=== PATIENT | male | born 1945 | race Caucasian/White ===

== ENCOUNTER 2016-08-26 18:22 | Emergency (ER) | payer MEDICARE, OTHER ==
[~2016-08-26] VITALS: Wt 91.0 kg
[2016-08-26] MEDS ORDERED: SOD CHLORIDE 0.9% 1,000 ML IV STA (18:42)
[2016-08-26] MEDS ORDERED: ONDANSETRON 4 MG INJ IV STA (18:42)
[2016-08-26 18:54] LABS: ADD UMIC YES; URINE BILIRUBIN (Dip) 1+ (NEGATIVE); URINE BLOOD (Dip) 1+ (NEGATIVE); URINE COLOR YELLOW (YELLOW); URINE GLUCOSE (Dip) NEGATIVE (NEGATIVE); URINE KETONES (Dip) NEGATIVE (NEGATIVE); URINE LEUKOCYTE ESTERASE (Dip) NEGATIVE (NEGATIVE); URINE NITRITE (Dip) NEGATIVE (NEGATIVE); URINE TOTAL PROTEIN (Dip) NEGATIVE (NEGATIVE); URINE UROBILINOGEN (Dip) 1.0 E.U./dL (0.1-1.0)
[2016-08-26] MEDS ORDERED: PARO20TA58 PO (19:04)
[2016-08-26] MEDS ORDERED: ROSU20TA PO (19:04)
[2016-08-26] MEDS ORDERED: ASPI-664 PO (19:04)
[2016-08-26] MEDS ORDERED: CLOP75TA27 PO (19:05)
[2016-08-26] MEDS ORDERED: CARV3.1260 PO (19:05)
[2016-08-26] MEDS ORDERED: FURO40TA4 PO (19:05)
[2016-08-26] MEDS ORDERED: MELO-110 PO (19:05)
[2016-08-26] MEDS ORDERED: METF-382 PO (19:06)
[2016-08-26] MEDS ORDERED: TAMS-14 PO (19:06)
[2016-08-26] MEDS ORDERED: ALBU18HF INHALATION (19:06)
[2016-08-26] MEDS ORDERED: ERGO500014 PO (19:07)
[2016-08-26] MEDS ORDERED: POTA8CAP PO (19:07)
[2016-08-26 19:19] LABS: BASOPHILS % 0.2 % (0.0-2.0); EOSINOPHILS # 0.2 10^3/ul (0.0-0.5); EOSINOPHILS % 1.6 % (0.0-7.0); HEMATOCRIT 47.1 % (42.0-52.0); HEMOGLOBIN 15.9 g/dl (14.0-18.0); LYMPHOCYTES # 1.8 10^3/ul (0.8-2.9); LYMPHOCYTES % 15.1 % (15.0-51.0); MEAN CORPUSCULAR HEMOGLOBIN 30.6 pg (29.0-33.0); MEAN CORPUSCULAR HGB CONC 33.8 g/dl (32.0-37.0); MEAN CORPUSCULAR VOLUME 90.5 fl (82.0-101.0); MEAN PLATELET VOLUME 10.1 fl (7.4-10.4); MONOCYTE # 1.4 10^3/ul (0.3-0.9); MONOCYTES % 11.4 % (0.0-11.0); NEUTROPHIL # 8.7 10^3/ul (1.6-7.5); NEUTROPHILS % 71.7 % (39.0-77.0); PLATELET COUNT 199 10^3/UL (140-440); RED BLOOD COUNT 5.21 10^6/ul (4.70-6.10); RED CELL DISTRIBUTION WIDTH 14.5 % (11.5-14.5); UNCORRECTED WBC 12.2 10^3/ul (4.8-10.8); WHITE BLOOD COUNT 12.2 10^3/ul (4.8-10.8)
[2016-08-26 19:26] LABS: CONDITION 1; LH ANALYZER COMMENTS 1
[2016-08-26 19:36] LABS: BACTERIA,URINE FEW; MUCUS,URINE MANY
[2016-08-26 19:37] LABS: ICTOTEST NEGATIVE (NEGATIVE); TRANSITIONAL EPI CELLS,URINE FEW
[2016-08-26 20:04] LABS: ALBUMIN 3.5 g/dl (3.3-4.9); CHLORIDE 102 mmol/L (97-110)
[2016-08-26 20:05] LABS: POTASSIUM 4.2 mmol/L (3.5-5.1); SODIUM 143 mmol/L (135-144)
[2016-08-26 20:06] LABS: INR 1.07; PROTIME 13.9 Sec (12.2-14.2); PT RATIO 1.1
[2016-08-26 20:07] LABS: ANION GAP 16 (8-16); BILIRUBIN,INDIRECT 0.3 mg/dl (0-1.1); BILIRUBIN,TOTAL 0.3 mg/dl (0.2-1.3); CARBON DIOXIDE 29 mmol/L (21-31); CREATININE 0.95 mg/dl (0.61-1.24); PARTIAL THROMBOPLASTIN TIME 31.4 Sec (25.0-35.0)
[2016-08-26 20:08] LABS: ALANINE AMINOTRANSFERASE 34 IU/L (13-69); ALBUMIN/GLOBULIN RATIO 1.16; ALKALINE PHOSPHATASE 295 IU/L (42-121); ASPARTATE AMINO TRANSFERASE 37 IU/L (15-46); BLOOD UREA NITROGEN 21 mg/dl (7-20); CALCIUM 8.7 mg/dl (8.4-10.2); GLUCOSE 94 mg/dl (70-220); TOTAL PROTEIN 6.5 g/dl (6.1-8.1)
[2016-08-26] MEDS ORDERED: SOD CHLORIDE 0.9% 100 ML ONE (20:22)
[2016-08-26] MEDS ORDERED: IOHEXOL 300MG/ML 150 ML BTL ONE (20:22)
[2016-08-26 20:28] LABS: TROPONIN-I < 0.012 ng/ml (0.00-0.12)
--- NOTE | 2016-08-26 20:53 | RADRPT ---
PROCEDURE: CT Abdomen and Pelvis with contrast. CLINICAL INDICATION: Abdominal pain, nausea, and vomiting. TECHNIQUE: A CT scan of the abdomen and pelvis was performed with intravenous contrast. The patie nt was scanned following the uncomplicated intravenous administration of 100 cc of Omnipaque-300. C oronal and sagittal reformatted images were obtained from the axial source images. Images were revie wed on a high-resolution PACS workstation. CTDIvol: 18.46 mGy. DLP: 1086.98 mGy-cm. COMPARISON: None. FINDINGS: The lung bases are clear. There are numerous hypodense hepatic lesions measuring up to 3.7 cm in the left hepatic lobe, strong ly suspicious for metastatic disease. There is a stone in the gallbladder. The common bile duct is not dilated. The spleen is not enlarged. No pancreatic lesion is identified and there is no pancreat ic ductal dilatation. There is a 4.7 x 3.5 cm nodule in the right adrenal gland (25 HU), nonspecific . The left adrenal gland is unremarkable. The kidneys are normal in size. There is no perinephric fat stranding. No hydronephrosis is seen. The small and large bowel are normal in caliber. There is no bowel wall thickening.There is mild to moderate descending and sigmoid colon diverticulosis. The appendix is normal. The urinary bladder is unremarkable. The prostate gland is enlarged. There is a moderate fat contai antoientte left inguinal hernia. No lymphadenopathy is identified. There is no ascites. No pneumoperitoneum is seen. There are mild t o moderate arterial calcifications. There is an infrarenal abdominal aortic aneurysm (3.1 cm). No suspicious osseous lesion is idenitified. There are mild to moderate degenerative changes along t he lower spine. IMPRESSION: 1. Numerous hypodense hepatic lesions measuring up to 3.7 cm in the left hepatic lobe, strongly price spicious for metastatic disease. 2. Nonspecific 4.7 cm right adrenal nodule. Differential considerations include metastatic disease and an adrenal adenoma. This could be further evaluated with adrenal protocol CT or MRI, as clinical ly warranted. 3. Cholelithiasis. 4. Normal appendix. 5. Mild to moderate descending and sigmoid colon diverticulosis. 6. Enlarged prostate gland. Correlation with PSA level is recommended. 7. Moderate fat-containing left inguinal hernia. 8. Mild to moderate atherosclerotic arterial calcifications. 9. Infrarenal abdominal aortic aneurysm (3.1 cm). RPTAT: HTAR .Pio Fagan MD, MD Date Time Electronically viewed and signed by .Pio Fagan MD, MD on 08/26/2016 20:53 .R/
[2016-08-26 21:24] VITALS: BP 136/95; PULSE 77; RESP 16; TEMP 98.6
--- NOTE | 2016-08-26 21:24 | ERD ---
ER Documentation Chief Complaint Date/Time DATE: 08/26/16 TIME: 21:19 Chief Complaint ABDOMINAL PAIN CENTRAL FOR A FEW MONTHS. NAUSEA AND VOMITING HPI 71-year-old man presents with epigastric abdominal pain, referred here by PMD for elevated alkaline phosphatase level. He states he has had a 20 pound weight loss over the last 2 months and intermittent nausea with a couple episodes of clear nonbloody nonbilious emesis. He has had no blood per rectum or melena, no fevers or chills, no chest pain or shortness of breath. ROS All systems reviewed and are negative except as per history of present illness. Medications Home Meds Active Scripts Ibuprofen* (Motrin*) 400 Mg Tab, 400 MG PO Q8 Y for PAIN AND/OR INFLAMMATION, # 30 TAB Prov:GEOVANNA AMOS MD 08/26/16 Reported Medications Ergocalciferol* (Drisdol* (Vitamin D2)) 50,000 Unit Capsule, 11718 UNIT PO Q7D, CAP 08/26/16 Potassium Chloride* (Potassium Chloride*) 8 Meq Capsule.er, 8 MEQ PO DAILY, CAP 08/26/16 Albuterol Sulfate* (Ventolin HFA*) 18 Gm Hfa.aer.ad, 2 PUFF INHALATION Q6H Y for WHEEZING AND SOB, #1 INHALER 08/26/16 Tamsulosin Hcl* (Flomax*) 0.4 Mg Cap.er.24h, 0.4 MG PO DAILY, CAP 08/26/16 Metformin Hcl* (Metformin Hcl*) 500 Mg Tablet, 500 MG PO WITH BREAKFAST, #30 TAB 08/26/16 Furosemide* (Furosemide*) 40 Mg Tablet, 40 MG PO DAILY, TAB 08/26/16 Carvedilol* (Carvedilol*) 3.125 Mg Tablet, 3.125 MG PO BID, #60 TAB 08/26/16 Meloxicam* (Mobic*) 15 Mg Tablet, 15 MG PO DAILY, #30 TAB 08/26/16 Clopidogrel Bisulfate (Clopidogrel) 75 Mg Tablet, 75 MG PO DAILY, #30 TAB 08/26/16 Paroxetine Hcl* (Paxil*) 20 Mg Tablet, 20 MG PO DAILY, TAB 08/26/16 Rosuvastatin Calcium* (Crestor*) 20 Mg Tablet, 20 MG PO QHS, #30 TAB 08/26/16 Aspirin (Low Dose Aspirin) 81 Mg Tablet., 81 MG PO DAILY, #30 TAB 08/26/16 Allergies Allergies: Coded Allergies: No Known Drug Allergy (Verified Allergy, Mild, 08/26/16) PMhx/Soc Hypertension, coronary artery disease status post PCI with 2 stents placed History of Surgery: Yes (STENT PLACEMENT 2X 7 YRS & 2 YRS AGO) Anesthesia Reaction: No Hx Neurological Disorder: No Hx Respiratory Disorders: No Hx Cardiac Disorders: No Hx Psychiatric Problems: No Hx Miscellaneous Medical Probl: No Hx Alcohol Use: No Hx Substance Use: No Hx Tobacco Use: Yes (1/2 PACK A DAY) Smoking Status: Former smoker FmHx Family History: No diabetes Physical Exam Vitals Vital Signs Date Time Temp Pulse Resp B/P Pulse Ox O2 Delivery O2 Flow Rate FiO2 08/26/16 21:24 98.6 77 16 136/95 100 Room Air 08/26/16 18:24 97.9 72 20 129/70 98 Physical Exam GENERAL: Well-developed, well-nourished, well-hydrated, in no apparent distress , looks nontoxic in appearance HEENT: Moist mucous membranes, pink conjunctiva, no cervical spine tenderness or step-off deformities, no goiter, no jaundice or icterus, extraocular movements intact without pain. No submandibular induration, and no pharyngeal erythema NEURO: Alert and oriented 3, cranial nerves II through XII intact bilaterally, pupils equal round reactive to light, no focal deficits or facial asymmetry, sensation intact distally Strength 5/5 in upper and lower extremities bilaterally CARDIAC: Regular rate and rhythm, no murmurs rubs or gallops LUNGS: Clear bilaterally no wheezing crackles or stridor ABDOMEN: Soft nontender, no guarding, no rigidity, no rebound, no psoas sign no obturator sign. Normoactive bowel sounds SKIN: Warm and dry to touch, no abrasions, contusions, or hematomas, no lacerations, no ecchymosis, no target lesions, and without ulcers EXTREMITIES: No clubbing cyanosis or edema, calves are bilaterally symmetrical, no Homans sign, no popliteal cord sign. Distal pulses equal and bilateral PSYCH: Normal affect without agitation or irritability Result Diagram: 08/26/16 1900 08/26/161944 Results 24 hrs Laboratory Tests Test 08/26/16 18:45 08/26/16 19:00 08/26/16 19:45 Urine Bacteria FEW Urine Bilirubin 1+ Urine Clarity SLIGHTLY CLOUDY Urine Color YELLOW Urine Glucose NEGATIVE% Urine Hemoglobin 1+ Urine Ictotest NEGATIVE Urine Ketones NEGATIVE Urine Leukocyte Esterase NEGATIVE Urine Microscopic RBC 5-10/HPF Urine Microscopic WBC 0-2/HPF Urine Mucus MANY Urine Nitrite NEGATIVE Urine Specific [place] 1.025 Urine Total Protein NEGATIVE Urine Transitional Epithelial Cells FEW Urine Urobilinogen 1.0 E.U./dL Urine pH 6.0 Basophils # 0.010^3/ul Basophils % 0.2% Blood Morphology Comment Eosinophils # 0.210^3/ul Eosinophils % 1.6% Hematocrit 47.1% Hemoglobin 15.9g/dl Lymphocytes # 1.810^3/ul Lymphocytes % 15.1% Mean Corpuscular Hemoglobin 30.6pg Mean Corpuscular Hemoglobin Concent 33.8g/dl Mean Corpuscular Volume 90.5fl Mean Platelet Volume 10.1fl Monocytes # 1.410^3/ul Monocytes % 11.4% Neutrophils # 8.710^3/ul Neutrophils % 71.7% Nucleated Red Blood Cells # 0.010^3/ul Nucleated Red Blood Cells % 0.0/100WBC Platelet Count 27613^3/UL Red Blood Count 5.2110^6/ul Red Cell Distribution Width 14.5% White Blood Count 12.210^3/ul Activated Partial Thromboplast Time 31.4Sec Alanine Aminotransferase (ALT/SGPT) 34IU/L Albumin 3.5g/dl Albumin/Globulin Ratio 1.16 Alkaline Phosphatase 295IU/L Anion Gap 16 Aspartate Amino Transf (AST/SGOT) 37IU/L Blood Urea Nitrogen 21mg/dl Calcium Level 8.7mg/dl Carbon Dioxide Level 29mmol/L Chloride Level 102mmol/L Creatinine 0.95mg/dl Direct Bilirubin 0.00mg/dl Globulin 3.00g/dl Glucose Level 94mg/dl INR International Normalized Ratio 1.07 Indirect Bilirubin 0.3mg/dl Lipase 31U/L Potassium Level 4.2mmol/L Prothrombin Time 13.9Sec Prothrombin Time Ratio 1.1 Sodium Level 143mmol/L Total Bilirubin 0.3mg/dl Total Protein 6.5g/dl Troponin I < 0.012ng/ml Current Medications Medications (Trade) Dose Ordered Sig/Jose M Route PRN Reason Start Time Stop Time Status Last Admin Dose Admin Sodium Chloride (NS) 1,000 ml @ 1,000 mls/hr Q1H STAT IV 08/26/16 18:42 08/26/16 19:41 DC 08/26/16 19:31 Ondansetron HCl (Zofran Inj) 4 mg ONCE STAT IV 08/26/16 18:42 08/26/16 18:44 DC 08/26/16 19:30 IV Flush 10 ml 10 ml STK-MED ONCE .ROUTE 08/26/16 20:22 08/26/16 20:23 DC 08/26/16 20:31 Sodium Chloride (NS) 100 ml @ ud STK-MED ONCE .ROUTE 08/26/16 20:22 08/26/16 20:23 DC 08/26/16 20:31 Iohexol (Omnipaque 300mg/ ml) 150 ml STK-MED ONCE .ROUTE 08/26/16 20:22 08/26/16 20:23 DC 08/26/16 20:31 Procedures/MDM IV line was established patient was placed on inbound sales advisor rhythm strip revealed a sinus rhythm at about 80 bpm with upright P and T waves. Patient was afebrile. I administered 1 L normal saline intravenously and Zofran 4 mg IV with good response. EKG performed, read by me revealed a normal sinus rhythm at 78 bpm, left axis deviation, narrow QRS complex, no concerning ST elevations or depressions noted. CBC was unremarkable, electrolytes revealed dehydration with a BUN/creatinine of 21/1, liver function tests were generally normal although alkaline phosphatase was elevated just below 300. Lipase was normal. Troponin was negative. Urine analysis was unremarkable. CT scan of the abdomen and pelvis with IV contrast was performed there is numerous hypodense hepatic lesions mainly in the left hepatic lobe concerning for metastatic disease, there was cholelithiasis noted with out common bile duct dilatation and there is a right adrenal mass. Enlarged prostate. Please refer to radiologist dictation for full report. I spoke to his primary care physician Dr. Simons who spoke to the patient at length over the phone regarding his symptoms and CT scan findings. We both recommended and urged the patient to stay for inpatient management although he refused. His primary care physician then requested the report of the CT scan and images on disc and stated he would follow-up with him as an outpatient early next week and refer him to GI and urology for further workup for possible colon cancer versus prostate cancer. Differential diagnoses considered, included but not limited to acute coronary syndrome, colon carcinoma versus prostate carcinoma, pulmonary embolism, aortic dissection, abdominal aortic aneurysm, sepsis, stroke, meningitis, encephalitis , pneumonia, appendicitis, cholecystitis, bowel obstruction, pyelonephritis, nephrolithiasis, cystitis, as well as metabolic, hematologic, and electrolyte abnormalities. As well as abscess, cellulitis, fractures, and dislocations. Patient feels much better at this time, and vital signs are normal, symptoms have improved. I did give strict instructions to return to the ED if symptoms continue or worsen, patient will otherwise follow-up with primary care physician. Patient understood instructions and agreed to plan. Departure Diagnosis: Primary Impression: Abdominal pain Abdominal location: epigastric Qualified Code: R10.13 - Epigastric pain Additional Impressions: Cholelithiasis Cholelithiasis location: gallbladder Cholecystitis presence: without cholecystitis Biliary obstruction: without biliary obstruction Qualified Code : K80.20 - Calculus of gallbladder without cholecystitis without obstruction Weight loss BPH (benign prostatic hyperplasia) Prostatic enlargement morphology: unspecified morphology Lower urinary tract symptom presence: symptoms present Qualified Code: N40.1 - Benign prostatic hyperplasia with lower urinary tract symptoms, unspecified morphology Condition: Stable GEOVANNA AMOS MD Aug 26, 2016 21:24
[2016-08-26] MEDS ORDERED: IBUP400T22 PO (21:25)
== END 2016-08-26 21:48 | disposition home or self-care (01) ==
LOC: E/R 18:22
DX: R10.13 Epigastric pain (principal); K80.20 Calculus of gallbladder without cholecystitis without obstruction; R63.4 Abnormal weight loss; N40.1 Benign prostatic hyperplasia with lower urinary tract symptoms; R11.2 Nausea with vomiting, unspecified; I10 Essential (primary) hypertension; I25.10 Atherosclerotic heart disease of native coronary artery without angina pectoris; Z87.891 Personal history of nicotine dependence; Z95.5 Presence of coronary angioplasty implant and graft; Z79.84 Long term (current) use of oral hypoglycemic drugs; Z79.82 Long term (current) use of aspirin
CPT/HCPCS: 36415; 74177; 80053; 81001; 83690; 84484; 85025; 85610; 85730; 93005; 96374; 99285; J2405; J7030; Q9967; 81003

== ENCOUNTER 2016-10-20 10:59 | Inpatient (IN) | payer MEDICARE, OTHER ==
[~2016-10-20] VITALS: Ht 185.4 cm; Wt 78.5 kg
[~2016-10-20 10:59] MED LIST: ALBU18HF INHALATION; ASPI-664 PO; CARV3.1260 PO; CLOP75TA27 PO; ERGO500014 PO; FURO40TA4 PO; IBUP400T22 PO; MELO-110 PO; METF-382 PO; PARO20TA58 PO; POTA8CAP PO; ROSU20TA PO; TAMS-14 PO
[2016-10-20] MEDS ORDERED: ONDANSETRON 4 MG INJ IV STA (11:14)
[2016-10-20] MEDS ORDERED: SOD CHLORIDE 0.9% 1,000 ML IV STA ×3 (11:14→17:51)
[2016-10-20] MEDS ORDERED: FAMOTIDINE 20 MG INJ IV STA (11:14)
[2016-10-20] MEDS ORDERED: PANTOPRAZOLE 40 MG INJ IV ONE (11:30)
[2016-10-20 11:41] LABS: ADD SCAN DIFF NO
[2016-10-20 11:47] LABS: ABNORMAL IP MESSAGE 1; HEMATOCRIT 33.5 % (42.0-52.0); HEMOGLOBIN 11.6 g/dl (14.0-18.0); MEAN CORPUSCULAR HEMOGLOBIN 31.1 pg (29.0-33.0); MEAN CORPUSCULAR HGB CONC 34.6 g/dl (32.0-37.0); MEAN CORPUSCULAR VOLUME 89.8 fl (82.0-101.0); MEAN PLATELET VOLUME 10.7 fl (7.4-10.4); PLATELET COUNT 212 10^3/UL (140-415); RED BLOOD COUNT 3.73 10^6/ul (4.70-6.10)
[2016-10-20 11:54] LABS: ALBUMIN 3.2 g/dl (3.3-4.9)
[2016-10-20 11:55] LABS: POTASSIUM 5.2 mmol/L (3.5-5.1)
[2016-10-20 11:57] LABS: BILIRUBIN,INDIRECT 0.8 mg/dl (0-1.1); BILIRUBIN,TOTAL 0.8 mg/dl (0.2-1.3); CREATININE 0.88 mg/dl (0.61-1.24); TOTAL PROTEIN 5.9 g/dl (6.1-8.1)
[2016-10-20 11:58] LABS: ALBUMIN/GLOBULIN RATIO 1.18; CALCIUM 8.4 mg/dl (8.4-10.2)
[2016-10-20 12:29] LABS: LYMPHOCYTES # 1.7 10^3/ul (0.8-2.9); MONOCYTE # 0.4 10^3/ul (0.3-0.9); NEUTROPHIL # 38.7 10^3/ul (1.6-7.5)
[2016-10-20 12:31] LABS: POLYCHROMASIA FEW
[2016-10-20] MEDS ORDERED: METOCLOPRAMIDE 10 MG INJ IV ONE (13:00)
[2016-10-20] MEDS ORDERED: LORAZEPAM 2 MG INJ IV ONE (13:00)
[2016-10-20] MEDS ORDERED: CAPE500T11 PO ×2 (13:12)
[2016-10-20] MEDS ORDERED: CEFEPIME 2GM/50 ML (PMX) 50 ML IVPB STA (13:17)
[2016-10-20] MEDS ORDERED: PANTOPRAZOLE IV 80 MG in SOD CHLORIDE 0.9% 100 ML IV STA (13:18)
[2016-10-20] MEDS ORDERED: LIDOCAINE 2% VISC 15 ML CUP PO ONE (13:30)
[2016-10-20] MEDS ORDERED: ONDANSETRON 4 MG INJ IV PRN ×2 (13:30→16:00)
[2016-10-20] MEDS ORDERED: ACETAMINOPHEN 325 MG TAB PO PRN ×2 (13:30→16:00)
[2016-10-20] MEDS ORDERED: VANCOMYCIN 1 GM (PMX) 250 ML IVPB ONE (13:30)
--- NOTE | 2016-10-20 13:46 | ERA ---
ER Documentation Chief Complaint Date/Time DATE: 10/20/16 TIME: 13:44 Chief Complaint BROUGHT IN VIA EMS FROM HOME DUE TO VOMITING BLOOD THIS MORNING HPI This is a 71-year-old male who presents to the emergency room after being brought in by ambulance from home due to vomiting. This patient does have a history of colon cancer with metastasis to the liver. He underwent chemotherapy on October 16 at [facility]. The patient has vomited up brown vomit and there was concern for possible blood in his vomit. The patient has also had dark stools over the past 2-3 days as well according to family members. The patient is taking aspirin at this time. ROS All systems reviewed and are negative except as per history of present illness. Medications Home Meds Reported Medications Capecitabine* (Xeloda*) 500 Mg Tablet, 1500 MG PO QAM, TBS 10/20/16 Capecitabine* (Xeloda*) 500 Mg Tablet, 1000 MG PO QPM, TAB 10/20/16 Carvedilol* (Carvedilol*) 3.125 Mg Tablet, 3.125 MG PO BID, #60 TAB 08/26/16 Rosuvastatin Calcium* (Crestor*) 20 Mg Tablet, 20 MG PO QHS, #30 TAB 08/26/16 Discontinued Reported Medications Ergocalciferol* (Drisdol* (Vitamin D2)) 50,000 Unit Capsule, 52116 UNIT PO Q7D, CAP 08/26/16 Potassium Chloride* (Potassium Chloride*) 8 Meq Capsule.er, 8 MEQ PO DAILY, CAP 08/26/16 Albuterol Sulfate* (Ventolin HFA*) 18 Gm Hfa.aer.ad, 2 PUFF INHALATION Q6H Y for WHEEZING AND SOB, #1 INHALER 08/26/16 Tamsulosin Hcl* (Flomax*) 0.4 Mg Cap.er.24h, 0.4 MG PO DAILY, CAP 08/26/16 Metformin Hcl* (Metformin Hcl*) 500 Mg Tablet, 500 MG PO WITH BREAKFAST, #30 TAB 08/26/16 Furosemide* (Furosemide*) 40 Mg Tablet, 40 MG PO DAILY, TAB 08/26/16 Meloxicam* (Mobic*) 15 Mg Tablet, 15 MG PO DAILY, #30 TAB 08/26/16 Clopidogrel Bisulfate (Clopidogrel) 75 Mg Tablet, 75 MG PO DAILY, #30 TAB 08/26/16 Paroxetine Hcl* (Paxil*) 20 Mg Tablet, 20 MG PO DAILY, TAB 08/26/16 Aspirin (Low Dose Aspirin) 81 Mg Tablet.dr, 81 MG PO DAILY, #30 TAB 08/26/16 Discontinued Scripts Ibuprofen* (Motrin*) 400 Mg Tab, 400 MG PO Q8 Y for PAIN AND/OR INFLAMMATION, # 30 TAB Prov:GEOVANNA AMOS MD 08/26/16 Allergies Allergies: Coded Allergies: No Known Drug Allergy (Verified Allergy, Mild, 10/20/16) PMhx/Soc History of Surgery: Yes (STENT PLACEMENT 2X 7 YRS & 2 YRS AGO) Anesthesia Reaction: No Hx Neurological Disorder: No Hx Respiratory Disorders: No Hx Cardiac Disorders: No Hx Psychiatric Problems: No Hx Miscellaneous Medical Probl: No Hx Alcohol Use: No Hx Substance Use: No Hx Tobacco Use: Yes (1/2 PACK A DAY) Smoking Status: Current every day smoker Physical Exam Vitals Vital Signs Date Time Temp Pulse Resp B/P Pulse Ox O2 Delivery O2 Flow Rate FiO2 10/20/16 13:44 110 18 91/66 99 Room Air 10/20/16 12:51 90 18 113/75 99 Room Air 10/20/16 11:05 98.5 86 18 112/74 99 Physical Exam INITIAL VITAL SIGNS: Reviewed by me GENERAL: The patient is frail-appearing elderly gentleman HEENT: Dry mucous membranes pupils equal, round, and reactive to light. EOMI. There is no scleral icterus. NECK: C-spine is soft and supple, there is no meningismus. There is no cervical lymphadenopathy. LUNGS: Clear to auscultation bilaterally. There are no rales, wheezes or rhonchi. HEART: Tachycardic, no murmurs, clicks, rubs or gallops. ABDOMEN: Soft, non-tender, non-distended. There are bowel sounds in all four quadrants. No rebound or guarding. EXTREMITIES: There is no peripheral cyanosis or edema. No focal swelling or erythema. NEUROLOGICAL: The patient moves all four extremities with 5/5 strength. Cranial nerves II - XII are intact. Normal gait. Alert and oriented SKIN: Port-A-Cath in right anterior chest wall, there is no apparent rash or petechiae. HEME/LYMPHATIC: There is no evidence of excessive bruising or lymphedema. PSYCHIATRIC: The patient does not appear anxious or depressed. Result Diagram: 10/20/16 1125 10/20/16 1125 Results 24 hrs Laboratory Tests Test 10/20/16 11:25 Alanine Aminotransferase (ALT/SGPT) 43IU/L Albumin 3.2g/dl Albumin/Globulin Ratio 1.18 Alkaline Phosphatase 681IU/L Anion Gap 23 Aspartate Amino Transf (AST/SGOT) 107IU/L Band Neutrophils % 6.0% Blood Urea Nitrogen 48mg/dl Calcium Level 8.4mg/dl Carbon Dioxide Level 23mmol/L Chloride Level 103mmol/L Creatinine 0.88mg/dl Differential Comment Direct Bilirubin 0.00mg/dl Eosinophils # 10^3/ul Eosinophils % % Globulin 2.70g/dl Glucose Level 173mg/dl Hematocrit 33.5% Hemoglobin 11.6g/dl Indirect Bilirubin 0.8mg/dl Lipase 31U/L Lymphocytes # 1.710^3/ul Lymphocytes % 4.0% Mean Corpuscular Hemoglobin 31.1pg Mean Corpuscular Hemoglobin Concent 34.6g/dl Mean Corpuscular Volume 89.8fl Mean Platelet Volume 10.7fl Monocytes # 0.410^3/ul Monocytes % 1.0% Neutrophils # 38.710^3/ul Neutrophils % 89.0% Platelet Count 99179^3/UL Polychromasia FEW Potassium Level 5.2mmol/L Red Blood Count 3.7310^6/ul Red Cell Distribution Width 20.0% Sodium Level 144mmol/L Total Bilirubin 0.8mg/dl Total Protein 5.9g/dl White Blood Count 43.510^3/ul Current Medications Medications (Trade) Dose Ordered Sig/Jose M Route PRN Reason Start Time Stop Time Status Last Admin Dose Admin Sodium Chloride (NS) 1,000 ml @ 1,000 mls/hr Q1H STAT IV 10/20/16 11:14 10/20/16 12:13 DC 10/20/16 11:33 Ondansetron HCl (Zofran Inj) 4 mg ONCE STAT IV 10/20/16 11:14 10/20/16 11:15 DC 10/20/16 11:34 Famotidine (Pepcid Iv) 20 mg ONCE STAT IV 10/20/16 11:14 10/20/16 11:15 DC 10/20/16 11:34 Pantoprazole (Protonix Iv) 40 mg ONCE ONCE IV 10/20/16 11:30 10/20/16 11:32 DC 10/20/16 11:34 Metoclopramide HCl (Reglan) 10 mg ONCE ONCE IV 10/20/16 13:00 10/20/16 13:01 DC 10/20/16 12:47 Lorazepam (Ativan) 1 mg ONCE ONCE IV 10/20/16 13:00 10/20/16 13:01 DC 10/20/16 12:48 Lidocaine 15 ml 15 ml ONCE ONCE PO 10/20/16 13:30 10/20/16 13:31 DC 10/20/16 13:33 Sodium Chloride 1,000 ml @ 1,000 mls/hr Q1H STAT IV 10/20/16 13:14 10/20/16 14:13 10/20/16 13:38 Cefepime HCl 50 ml @ 100 mls/hr ONCE STAT IVPB 10/20/16 13:17 10/20/16 13:46 DC 10/20/16 13:39 Vancomycin HCl 250 ml @ 125 mls/hr ONCE ONCE IVPB 10/20/16 13:30 10/20/16 15:29 Pantoprazole 80 mg/Sodium Chloride 100 ml @ 10 mls/hr ONCE STAT IV 10/20/16 13:18 10/20/16 23:17 Sodium Chloride (NS) 1,000 ml @ 80 mls/hr [id number] IV 10/20/16 13:24 10/21/16 01:53 Ondansetron HCl (Zofran Inj) 4 mg ER BRIDGE PRN IV NAUSEA AND/OR VOMITING 10/20/16 13:30 10/21/16 13:29 Acetaminophen (Tylenol Tab) 650 mg ER BRIDGE PRN PO MILD PAIN/FEVER 10/20/16 13:30 10/21/16 13:29 Procedures/MDM EKG: Rate/Rhythm: [Normal Sinus Rhythm] QRS, ST, T-waves: [No changes consistent w/ acute ischemia] Impression: [No evidence of ischemia or arrhythmia] Chest X-ray 1V Interpreted by me: Soft Tissue: Nasogastric tube in place Bones: No acute abnormalities Mediastinum/Cardiac Silhouette/Lungs: [No acute abnormalities] This 71-year-old male presents to the emergency room for evaluation of vomiting. I did see this patient vomited and he does have what appears to be coffee-ground emesis. He is tachycardic. The patient was given 2 L of IV fluid here in the emergency room. Hemoglobin is 11 at this time, however given his active vomiting the patient had a nasogastric tube placed. He does have a white blood cell count of 43,000 and is on chemotherapy. It is unclear whether this patient is on Neupogen at this time. Given this patient's complex history blood in urine cultures were obtained. The patient was started on broad- spectrum antibiotics vancomycin, and cefepime. He was started on Protonix drip as well. I have contacted her primary admitting physician, Dr. Banks who is in agreement with her plan of care for admission on the telemetry floor at this time. I have paged her GI physician, Dr. cleveland and am awaiting his response at this time. This patient is hemodynamically stable with no need for vasopressors at this time. Critical Care: Excluding all billable procedures Time: 39 minutes Treatments/Evaluations: Close monitoring and treatment of unstable vital signs, cardiorespiratory, and neurologic status, while maintaining tight balance of fluid, respiratory, and cardiac interventions, lab values interpretation, multiple bedside evaluations, multiple consultations.. Departure Diagnosis: Primary Impression: Sepsis Additional Impressions: Upper GI bleed Dehydration, moderate Acute prerenal azotemia Normocytic anemia Hematemesis Condition: KEVIN Segovia DO Oct 20, 2016 13:46
[2016-10-20] MEDS: SOD CHLORIDE 0.9% 1,000 ML IV SCH (13:49)
--- NOTE | 2016-10-20 13:51 | RADRPT ---
PROCEDURE: Chest x-ray CLINICAL INDICATION: GI bleed TECHNIQUE: Chest single view COMPARISON: None FINDINGS: There is right IJ Port-A-Cath. Nasogastric tube extends in the stomach. Mild cardiomegaly and an s clerotic aortic calcification is seen. Bony vessels are normal in caliber. Lung volumes are low wi th bibasilar atelectasis. The costophrenic angles sharp. Bony thorax is unremarkable IMPRESSION: 1. Nasogastric tube in good position. 2. Low lung volumes with bibasilar atelectasis. 3. Mild cardiomegaly and atherosclerotic aortic calcification. 4. Port-A-Cath RPTAT: HH .Sergey Callahan MD, Date Time Electronically viewed and signed by .Sergey Callahan MD, on 10/20/2016 13:50 .W/
[2016-10-20] MEDS ORDERED: SODIUM CHLORIDE 0.9% 1L BAG IV* STA (14:06)
[2016-10-20] MEDS ORDERED: MAGNESIUM HYDROXIDE 30ML CUP PO PRN (16:00)
[2016-10-20] MEDS ORDERED: NACL 0.9% 3 ML SYG IV SCH (16:00)
[2016-10-20] MEDS ORDERED: BISACODYL 10 MG SUPP PR PRN (16:00)
[2016-10-20] MEDS ORDERED: NITROGLYCERIN (SL) 0.4 MG TAB SL PRN (16:00)
[2016-10-20] MEDS ORDERED: DOCUSATE SODIUM 100 MG CAP PO PRN (16:00)
[2016-10-20] MEDS ORDERED: VANCOMYCIN IV PER PHARMACY XX SCH (16:00)
[2016-10-20] MEDS ORDERED: SOD CHLORIDE 0.9% 250 ML IV ONE (16:03)
[2016-10-20 16:48] LABS: ADD SCAN DIFF NO
[2016-10-20 16:50] LABS: ABNORMAL IP MESSAGE 1; MEAN CORPUSCULAR HEMOGLOBIN 31.6 pg (29.0-33.0); MEAN CORPUSCULAR HGB CONC 34.6 g/dl (32.0-37.0); MEAN CORPUSCULAR VOLUME 91.2 fl (82.0-101.0); MEAN PLATELET VOLUME 11.2 fl (7.4-10.4); PLATELET COUNT 157 10^3/UL (140-415); RED BLOOD COUNT 2.85 10^6/ul (4.70-6.10); RED CELL DISTRIBUTION WIDTH 19.9 % (11.5-14.5)
[2016-10-20 17:09] LABS: INR 1.29; PROTIME 16.2 Sec (12.2-14.2); PT RATIO 1.3
[2016-10-20 17:10] LABS: PARTIAL THROMBOPLASTIN TIME 25.2 Sec (25.0-35.0)
[2016-10-20 17:30] LABS: CREATINE KINASE 87 IU/L (23-200)
[2016-10-20 17:46] LABS: LYMPHOCYTES # 1.7 10^3/ul (0.8-2.9); NEUTROPHIL # 25.8 10^3/ul (1.6-7.5)
[2016-10-20 17:47] LABS: TROPONIN-I < 0.012 ng/ml (0.00-0.12)
--- NOTE | 2016-10-20 18:11 | HP ---
DATE OF ADMISSION: 10/20/2016 PRIMARY CARE PHYSICIAN: Dr He Simons. PRIMARY ONCOLOGIST: CASEY BECERRIL MD at [facility]. CHIEF COMPLAINT ON ADMISSION: Vomiting blood. HISTORY OF PRESENT ILLNESS: This is a 71-year-old male with history of tobacco use, coronary artery disease, hyperlipidemia, recent diagnosis of metastatic colon cancer stage SHAI with metastases to the liver, who has been undergoing chemotherapy. His last chemo session was 2 days ago. He also received Neupogen over the past 2 days. He presented to the emergency department with complaint of new onset hematemesis. According to the patient's who was given most of the history as the patient is lethargic currently, the patient was doing fairly well yesterday; however, he had poor appetite and was refusing to eat and possibly was complaining of inability to swallow. Later on in the evening, he had an episode of vomiting coffee-ground material. He had multiple episodes after that while at home, he also had multiple episodes of melena with loose dark stools. The patient was very reluctant to come to the hospital. Finally was persuaded by the family. In the emergency department, he had 2 episodes of hematemesis. He had a NG tube placed and he does have coffee- ground material coming out. He has been started on a Protonix drip. He is also noted to have a couple of episodes of bowel movement that seems to be melanotic. His hemoglobin on arrival was 11.6, but of note, the patient is dehydrated and hemoconcentrated. Given his blood loss even through the NG tube here, his repeat CBC is pending and he may need blood transfusion. PT, PTT, INR are also pending in case he needs FFP. According to the and the daughter at the bedside, there is no reported fevers, chills or chest pains. There is no reported abdominal pain actually. The patient himself is lethargic but easily arousable. It is noted that his white blood cell count is 43,000 and the did confirm that the patient has been getting Neupogen injection at least for the past 2 days and was supposed to get another one today or tomorrow. He has been admitted to telemetry for now with possible upgrade to ICU as needed. It is also noted that his lactic acid is 7. ALLERGIES: NO KNOWN ALLERGIES. PAST MEDICAL HISTORY: 1. Coronary artery disease. 2. Metastatic colon cancer stage SHAI with mets to the liver. Apparently, the patient had a PET CT as an outpatient with possibly additional sites of metastases. 3. Tobacco use. 4. Hyperlipidemia. PAST SURGICAL HISTORY: 1. Patient had a MediPort placed for chemotherapy this year. 2. He did have multiple angiograms with stent placement according to the family. 3. One stent placement was 7 years ago. The second stent placement 2 years ago. SOCIAL HISTORY: No alcohol use or abuse reported. However, the patient does smoke. He is still smoking half a pack a day. REVIEW OF SYSTEMS: As per HPI. OUTPATIENT MEDICATIONS: 1. Xeloda 1500 mg p.o. q.a.m. and 1000 mg p.o. q. p.m. 2. Carvedilol 3.125 mg p.o. b.i.d. 3. Crestor 20 mg p.o. at bedtime. 4. Of note, the patient has been taken off all antiplatelets including his Plavix and aspirin that he was on before. PHYSICAL EXAMINATION: VITAL SIGNS: Temperature is 98.5, pulse of 103, respiratory rate of 18, blood pressure of 101/66. The patient satting 99% on room air. GENERAL: Generally he is somnolent, lethargic, currently, but easily arousable. He does speak Indonesian, but seems to be preferring Swedish currently. HEENT: Pupils are equally round and reactive to light. Extraocular muscles are intact. Anicteric sclerae, however, pale. NECK: No JVD, no thyromegaly. LUNGS: Clear to auscultation bilaterally. ABDOMEN: Soft, nontender, nondistended on exam. Bowel sounds are decreased. EXTREMITIES: No edema, clubbing or cyanosis. NEUROLOGIC: Patient is significantly lethargic currently. Muscle strength is 4 +/5 throughout. LABORATORY DATA: White blood cell count is 43.5 with 6% bands and 89% neutrophils, hemoglobin 11.6, hematocrit 33.5, platelet count of 212. Chemistry with a sodium of 144, potassium 5.2, chloride 103, bicarbonate 23, BUN 48, creatinine 0.88. Lactic acid was 7.0 and 7.4 and the third one is pending. Calcium 8.4, total bilirubin 0.8, AST 107, ALT 43, alkaline phosphatase 681, total protein 5.9, albumin 3.2, lipase was 29. PT, PTT and INR are pending. Repeat CBC pending. RADIOLOGICAL DATA: Chest x-ray at this point shows NG tube in position, mild cardiomegaly and atherosclerotic aortic calcification. Port-A-Cath in place. ASSESSMENT AND PLAN: This is a 71-year-old male with: 1. Episode of hemetemesis seems to be pointing to upper gastrointestinal bleed given the coffee-ground emesis and also melena. The patient is n.p.o. except for meds so gastrointestinal consult will be placed with Dr. Rowell in order to see if the patient can be scoped in the next 24 hours. His repeat CBC is pending. Based on his vital signs, he is actually going to need a blood product transfusion. Also, PT, PTT and INR are pending. We will continue with Protonix drip for now and close monitoring. I have held his Xeloda for today. 2. Lactic acidosis and possible underlying sepsis versus severe dehydration and ongoing gastrointestinal bleeding. We will trend his lactic acid level. Continue to monitor renal function and also continue IV fluids, blood cultures, urinalysis and urine cultures have been ordered and broad spectrum antibiotics already started. Also, Clostridium difficile has been sent. 3. Leukocytosis with a recent injection of Neupogen over the past 2 days. We will monitor his white blood cell count for now. We need to rule out any infectious source if any and will keep him on broad spectrum antibiotics due to the fact that he does have elevated lactic acid level for now. 4. Coronary artery disease, status post stent placement. Apparently, the patient has been taken off his antiplatelet so far. We will continue the carvedilol as tolerated and I will check his cardiac enzymes at this time. 5. Lethargy secondary to ongoing clinical diagnosis of hematemesis, rule out underlying sepsis. Continue to monitor. 6. Tobacco use. I will keep encouraging the patient to quit and will offer nicotine patch. 7. Hyperlipidemia. I will hold the Crestor for now until we have a better idea of his renal function currently. 8. Prophylaxis. Sequential compression devices to lower extremities for deep venous thrombosis prophylaxis and patient already on Protonix drip. DISPOSITION: Admit to telemetry for now with possibility to upgrade to ICU if needed. GI consult with Dr. Rowell. Dictated By: CHAU MONTIEL/PAOLA Conf#: [id number] DID#: [id number] MTDD
[2016-10-20] MEDS: PANTOPRAZOLE IV 80 MG in SOD CHLORIDE 0.9% 100 ML IV SCH (18:50)
[2016-10-20 20:15] VITALS: TEMP 97.5
[2016-10-20 20:48] VITALS: PULSE 90
[2016-10-20 23:00] VITALS: BP 104/61; PULSE 88; RESP 18; Ht 185.4 cm; Wt 78.5 kg
[2016-10-21] VITALS (23 sets, daily range): BP systolic 11–112; BP diastolic 50–75; PULSE 78–120; RESP 18–30
[2016-10-21] MEDS: SOD CHLORIDE 0.9% 1,000 ML IV SCH ×5 (00:07→22:00)
[2016-10-21] MEDS: VANCOMYCIN 1 GM in NS 250 ML IVPB SCH ×2 (00:45→11:24)
[2016-10-21] MEDS: PANTOPRAZOLE IV 80 MG in SOD CHLORIDE 0.9% 100 ML IV SCH ×3 (03:48→22:08)
[2016-10-21] MEDS: CEFEPIME 2GM/50 ML (PMX) 50 ML IVPB SCH ×3 (03:48→21:47)
[2016-10-21 07:44] LABS: ADD SCAN DIFF NO
[2016-10-21 07:47] LABS: ABNORMAL IP MESSAGE 1; HEMATOCRIT 29.8 % (42.0-52.0); HEMOGLOBIN 10.1 g/dl (14.0-18.0); MEAN CORPUSCULAR HEMOGLOBIN 30.5 pg (29.0-33.0); MEAN CORPUSCULAR HGB CONC 33.9 g/dl (32.0-37.0); MEAN PLATELET VOLUME 11.3 fl (7.4-10.4); PLATELET COUNT 135 10^3/UL (140-415); RED BLOOD COUNT 3.31 10^6/ul (4.70-6.10); RED CELL DISTRIBUTION WIDTH 18.5 % (11.5-14.5)
[2016-10-21 08:01] LABS: INR 1.34; PROTIME 16.7 Sec (12.2-14.2); PT RATIO 1.3
[2016-10-21 08:02] LABS: PARTIAL THROMBOPLASTIN TIME 28.2 Sec (25.0-35.0)
[2016-10-21 08:17] LABS: LACTIC ACID 2.1 mmol/L (0.5-2.2)
[2016-10-21 08:27] LABS: MAGNESIUM 2.3 mg/dl (1.7-2.5); PHOSPHORUS 1.5 mg/dl (2.5-4.9)
[2016-10-21 09:12] LABS: ALBUMIN 2.2 g/dl (3.3-4.9)
[2016-10-21 09:13] LABS: POTASSIUM 4.3 mmol/L (3.5-5.1)
[2016-10-21 09:14] LABS: CREATININE 0.68 mg/dl (0.61-1.24)
[2016-10-21 09:15] LABS: BILIRUBIN,INDIRECT 0.4 mg/dl (0-1.1); BILIRUBIN,TOTAL 0.4 mg/dl (0.2-1.3); CALCIUM 6.8 mg/dl (8.4-10.2); TOTAL PROTEIN 4.4 g/dl (6.1-8.1)
[2016-10-21 10:05] LABS: LYMPHOCYTES # 1.1 10^3/ul (0.8-2.9); MONOCYTE # 0.8 10^3/ul (0.3-0.9); MYELOCYTES # 0.3; NEUTROPHIL # 22.7 10^3/ul (1.6-7.5)
--- NOTE | 2016-10-21 10:16 | PN ---
Date/Time of Note Date/Time of Note DATE: 10/21/16 TIME: 10:14 Assessment/Plan VTE Prophylaxis VTE Prophylaxis Intervention: SCD's Lines/Catheters IV Catheter Type (from Nrs): Peripheral IV Urinary Cath still in place: Yes (condom cath) Reason Cath still needed: other (indicate) (monitor UOP) Assessment/Plan Assessment/Plan 71-year-old male with: 1. Episode of Coffee ground emesis and melena c/w UGIB N.p.o. except for meds Appreciate GI eval and plan for EGD today with Dr. Rowell Hold Xeloda for now. 2. Lactic acidosis and possible underlying sepsis versus severe dehydration and ongoing gastrointestinal bleeding. Resolved Follow up blood and urine cx F/u C diff F/u CT abdo/pelvis results 3. Leukocytosis with a recent injection of Neupogen over the past 2 days. Stable Counts Monitor, will recheck in AM F/u cx, if negative will d/c abx at discharge 4. Coronary artery disease, status post stent placement. Apparently, the patient has been taken off his antiplatelet so far. Holding carvedilol due to BP marginal, resume at discharge if stable CE negative 5. Lethargy secondary to ongoing clinical diagnosis of hematemesis, rule out underlying sepsis. Resolved this AM. 6. Tobacco use. Quit 3 months ago. 7. Hyperlipidemia. Holding Crestor for today. Prophylaxis. Sequential compression devices to lower extremities for deep venous thrombosis prophylaxis and patient already on Protonix drip. DISPOSITION: Telemetry monitoring, EGD today with Dr. Rowell. Subjective 24 Hr Interval Summary Free Text/Dictation Patient doing much better this AM, afebrile and WBC stable in mid 20's, post Neupogen x 2 doses To get FFP today joana procedure today S/p 2 units pRBC and Hb up to 10, no further coffee ground material being suctioned out All cx NGTD Exam/Review of Systems Vital Signs Vitals Vital Signs Date Time Temp Pulse Resp B/P Pulse Ox O2 Delivery O2 Flow Rate FiO2 10/21/16 08:58 88 10/21/16 07:35 97.9 18 94/55 95 10/21/16 03:25 Room Air Intake and Output 10/20/16 10/20/16 10/21/16 15:00 23:00 07:00 Intake Total 650 ml Output Total 200 ml Balance 650 ml -200 ml Exam Constitutional: alert, oriented, well developed Respiratory: clear to auscultation, normal air movement Cardiovascular: nl pulses, regular rate and rhythm Gastrointestinal: non-tender, soft Musculoskeletal: nl extremities to inspection Extremities: normal pulses, other (no edema, clubbing or cyanosis ) Neurological: CARTRIDGE ASSEMBLER II-XII 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, nl mental status, nl speech, other ( generalized weakness ) Results Result Diagram: 10/21/16 0601 10/21/16 0604 Results 24 hrs Laboratory Tests Test 10/20/16 11:25 10/20/16 12:40 10/20/16 13:15 10/20/16 15:15 Alanine Aminotransferase (ALT/SGPT) 43 Albumin 3.2 L Albumin/Globulin Ratio 1.18 Alkaline Phosphatase 681 H Anion Gap 23 H Aspartate Amino Transf (AST/SGOT) 107 H Band Neutrophils % 6.0 H Blood Urea Nitrogen 48 H Calcium Level 8.4 Carbon Dioxide Level 23 Chloride Level 103 Creatinine 0.88 Differential Comment Direct Bilirubin 0.00 Eosinophils # Eosinophils % Globulin 2.70 Glucose Level 173 Hematocrit 33.5 #L Hemoglobin 11.6 #L Indirect Bilirubin 0.8 Lipase 31 29 Lymphocytes # 1.7 Lymphocytes % 4.0 L Mean Corpuscular Hemoglobin 31.1 Mean Corpuscular Hemoglobin Concent 34.6 Mean Corpuscular Volume 89.8 Mean Platelet Volume 10.7 H Monocytes # 0.4 Monocytes % 1.0 Neutrophils # 38.7 H Neutrophils % 89.0 H Platelet Count 212 Polychromasia FEW Potassium Level 5.2 H Red Blood Count 3.73 #L Red Cell Distribution Width 20.0 #H Sodium Level 144 Total Bilirubin 0.8 Total Protein 5.9 L White Blood Count 43.5 #H Activated Partial Thromboplast Time 25.2 INR International Normalized Ratio 1.29 Prothrombin Time 16.2 H Prothrombin Time Ratio 1.3 Lactic Acid Level 7.0 *H 7.4 *H Test 10/20/16 16:35 10/21/16 06:01 10/21/16 06:04 Band Neutrophils % 2.0 8.0 H Creatine Kinase 87 Creatine Kinase Index 18.4 Creatinine Kinase MB (Mass) 16.00 H Eosinophils # Eosinophils % Hematocrit 26.0 #L 29.8 L Hemoglobin 9.0 #L 10.1 L Lactic Acid Level 4.9 *H 2.1 Lymphocytes # 1.7 1.1 Lymphocytes % 6.0 L 4.0 L Mean Corpuscular Hemoglobin 31.6 30.5 Mean Corpuscular Hemoglobin Concent 34.6 33.9 Mean Corpuscular Volume 91.2 90.0 Mean Platelet Volume 11.2 H 11.3 H Neutrophils # 25.8 H 22.7 H Neutrophils % 92.0 H 84.0 H Platelet Count 157 # 135 L Red Blood Count 2.85 #L 3.31 L Red Cell Distribution Width 19.9 H 18.5 H Troponin I < 0.012 White Blood Count 28.0 #H 27.0 H Activated Partial Thromboplast Time 28.2 Ammonia 36 H INR International Normalized Ratio 1.34 Magnesium Level 2.3 Monocytes # 0.8 Monocytes % 3.0 Myelocytes # 0.3 Myelocytes % 1.0 H Phosphorus Level 1.5 L Prothrombin Time 16.7 H Prothrombin Time Ratio 1.3 Alanine Aminotransferase (ALT/SGPT) 47 Albumin 2.2 #L Albumin/Globulin Ratio 1.00 Alkaline Phosphatase 394 H Anion Gap 11 # Aspartate Amino Transf (AST/SGOT) 109 H Blood Urea Nitrogen 36 #H Calcium Level 6.8 L Carbon Dioxide Level 23 Chloride Level 115 H Creatinine 0.68 Direct Bilirubin 0.00 Globulin 2.20 Glucose Level 97 # Indirect Bilirubin 0.4 Potassium Level 4.3 Sodium Level 145 H Total Bilirubin 0.4 Total Protein 4.4 #L Medications Medications Current Medications Sodium Chloride (NS) 1,000 ml @ 100 mls/hr Q10H IV Last administered on 00:07; Admin Dose 100 MLS/HR; Start 10/20/16 at 16:00 Carvedilol 3.125 mg 3.125 mg BID PO Last administered on 10/21/16 00:06; Admin Dose 3.125 MG; Start 10/20/16 at 21:00 Cefepime HCl 50 ml @ 100 mls/hr Q12 IVPB Last administered on 10/21/16 09:59 ; Admin Dose 100 MLS/HR; Start 10/20/16 at 21:00 Pantoprazole/ Sodium Chloride (Protonix Iv/NS) 100 ml @ 10 mls/hr Q10H IV Last administered on 10/21/16 03:48; Admin Dose 10 MLS/HR; Start 10/20/16 at 16 :00 Ondansetron HCl (Zofran Inj) 4 mg Q6H PRN IV NAUSEA AND/OR VOMITING; Start at 16:00 Nitroglycerin (Nitroglycerin (Sl Tab) 0.4 Mg) 1 tab Q5M PRN SL CHEST PAIN; Start 10/20/16 at 16:00 Acetaminophen (Tylenol Tab) 650 mg Q6H PRN PO PAIN LEVEL 1-3 OR FEVER; Start at 16:00 Morphine Sulfate (morphine) 2 mg Q4H PRN IV PAIN LEVEL 7-10; Start 10/20/16 at 16:00 Docusate Sodium (Colace) 100 mg Q12H PRN PO CONSTIPATION; Start 10/20/16 at 16: 00 Magnesium Hydroxide (Milk Of Mag) 30 ml DAILY PRN PO CONSTIPATION; Start at 16:00 Bisacodyl 10 mg 10 mg DAILY PRN [place] CONSTIPATION; Start 10/20/16 at 16:00 Vancomycin HCl (Vancocin) 250 ml @ 125 mls/hr Q12H IVPB Last administered on t 00:45; Admin Dose 125 MLS/HR; Start 10/20/16 at 23:30 CHAU DAVILA Oct 21, 2016 10:15 CHAU DAVILA Oct 21, 2016 10:15
[2016-10-21] MEDS ORDERED: SOD CHLORIDE 0.9% 250 ML IV* ONE (10:44)
--- NOTE | 2016-10-21 11:12 | CONS ---
Date/Time of Note Date/Time of Note DATE: 10/21/16 TIME: 11:05 Assessment/Plan Assessment/Plan Additional Assessment/Plan Acute anemia Evaluate GI bleed versus chronic iron deficiency vs other etiology Monitor H&H every 8 hours, transfuse 2 units for hemoglobin less than 7.[address] abdomen Continue PPI drips EGD today, pt and daughter advised of R/B/A to procedure and provide informed consent to proceed Hematochezia May be secondary to upper GI bleed May require colonoscopy if clinically indicated Coronary artery disease Management per Primary Continue home medication Further recommendations depend on clinical course Consultation Date/Type/Reason Admit Date/Time Oct 20, 2016 at 13:25 Type of Consultation: Gastroenterology Reason for Consultation Anemia Hx of Present Illness Mr.Berj Cheung is a 71-year-old male presented to ED for further evaluation of coffee-ground emesis and blood in stool. Patient started at bedside and provided history. Per patient's daughter, symptoms started on Monday late in the evening. 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 No reports of fever, chills, chest pain, abdominal pain, shortness of breath, and sick contacts. Patient has a past medical history of coronary artery disease, Metastatic colon cancer stage SHAI with mets to the liver, and tobacco use. Patient had a colonoscopy and EGD back on September 21 secondary to complaints of abdominal pain. Colonoscopy discovered colon mass. Patient currently receiving chemo with Epogen. Patient has completed 2 rounds of chemo and has an additional 4 more rounds planned. Patient's hemoglobin is currently 10.1 status post 2 units of PRBC. Recommending EGD for further evaluation and patient and daughter provide informed consent to proceed. Past Medical History Medical History: coronary artery disease, other (Colon cancer) Social History Alcohol Use: rarely Smoking Status: Former smoker Exam/Review of Systems Vital Signs Vitals Vital Signs Date Time Temp Pulse Resp B/P Pulse Ox O2 Delivery O2 Flow Rate FiO2 10/21/16 08:58 88 10/21/16 07:35 97.9 18 94/55 95 10/21/16 03:25 Room Air Intake and Output 10/20/16 10/20/16 10/21/16 15:00 23:00 07:00 Intake Total 650 ml Output Total 200 ml Balance 650 ml -200 ml Exam Constitutional: alert, oriented, well developed Psych: nl mood/affect Head: normocephalic Eyes: EOMI, nl conjunctiva, nl lids ENMT: nl external ears & nose, nl lips & teeth, nl nasal mucosa & septum Respiratory: clear to auscultation, normal air movement Cardiovascular: regular rate and rhythm Gastrointestinal: soft, nontender tender Musculoskeletal: nl extremities to inspection Neurological: WIRELESS CONSTRUCTION MANAGER II-XII intact Results Result Diagram: 10/21/16 0601 10/21/16 0604 Results 24 hrs Laboratory Tests Test 10/20/16 11:25 10/20/16 12:40 10/20/16 13:15 10/20/16 15:15 Alanine Aminotransferase (ALT/SGPT) 43 Albumin 3.2 L Albumin/Globulin Ratio 1.18 Alkaline Phosphatase 681 H Anion Gap 23 H Aspartate Amino Transf (AST/SGOT) 107 H Band Neutrophils % 6.0 H Blood Urea Nitrogen 48 H Calcium Level 8.4 Carbon Dioxide Level 23 Chloride Level 103 Creatinine 0.88 Differential Comment Direct Bilirubin 0.00 Eosinophils # Eosinophils % Globulin 2.70 Glucose Level 173 Hematocrit 33.5 #L Hemoglobin 11.6 #L Indirect Bilirubin 0.8 Lipase 31 29 Lymphocytes # 1.7 Lymphocytes % 4.0 L Mean Corpuscular Hemoglobin 31.1 Mean Corpuscular Hemoglobin Concent 34.6 Mean Corpuscular Volume 89.8 Mean Platelet Volume 10.7 H Monocytes # 0.4 Monocytes % 1.0 Neutrophils # 38.7 H Neutrophils % 89.0 H Platelet Count 212 Polychromasia FEW Potassium Level 5.2 H Red Blood Count 3.73 #L Red Cell Distribution Width 20.0 #H Sodium Level 144 Total Bilirubin 0.8 Total Protein 5.9 L White Blood Count 43.5 #H Activated Partial Thromboplast Time 25.2 INR International Normalized Ratio 1.29 Prothrombin Time 16.2 H Prothrombin Time Ratio 1.3 Lactic Acid Level 7.0 *H 7.4 *H Test 10/20/16 16:35 10/21/16 06:01 10/21/16 06:04 Band Neutrophils % 2.0 8.0 H Creatine Kinase 87 Creatine Kinase Index 18.4 Creatinine Kinase MB (Mass) 16.00 H Eosinophils # Eosinophils % Hematocrit 26.0 #L 29.8 L Hemoglobin 9.0 #L 10.1 L Lactic Acid Level 4.9 *H 2.1 Lymphocytes # 1.7 1.1 Lymphocytes % 6.0 L 4.0 L Mean Corpuscular Hemoglobin 31.6 30.5 Mean Corpuscular Hemoglobin Concent 34.6 33.9 Mean Corpuscular Volume 91.2 90.0 Mean Platelet Volume 11.2 H 11.3 H Neutrophils # 25.8 H 22.7 H Neutrophils % 92.0 H 84.0 H Platelet Count 157 # 135 L Red Blood Count 2.85 #L 3.31 L Red Cell Distribution Width 19.9 H 18.5 H Troponin I < 0.012 White Blood Count 28.0 #H 27.0 H Activated Partial Thromboplast Time 28.2 Ammonia 36 H INR International Normalized Ratio 1.34 Magnesium Level 2.3 Monocytes # 0.8 Monocytes % 3.0 Myelocytes # 0.3 Myelocytes % 1.0 H Phosphorus Level 1.5 L Prothrombin Time 16.7 H Prothrombin Time Ratio 1.3 Alanine Aminotransferase (ALT/SGPT) 47 Albumin 2.2 #L Albumin/Globulin Ratio 1.00 Alkaline Phosphatase 394 H Anion Gap 11 # Aspartate Amino Transf (AST/SGOT) 109 H Blood Urea Nitrogen 36 #H Calcium Level 6.8 L Carbon Dioxide Level 23 Chloride Level 115 H Creatinine 0.68 Direct Bilirubin 0.00 Globulin 2.20 Glucose Level 97 # Indirect Bilirubin 0.4 Potassium Level 4.3 Sodium Level 145 H Total Bilirubin 0.4 Total Protein 4.4 #L Medications Medications Current Medications Sodium Chloride 1,000 ml @ 100 mls/hr Q10H IV Last administered on 10/21/16 00:07; Admin Dose 100 MLS/HR; Start 10/20/16 at 16:00 Cefepime HCl 50 ml @ 100 mls/hr Q12 IVPB Last administered on 10/21/16 09:59 ; Admin Dose 100 MLS/HR; Start 10/20/16 at 21:00 Pantoprazole/ Sodium Chloride (Protonix Iv/NS) 100 ml @ 10 mls/hr Q10H IV Last administered on 10/21/16 03:48; Admin Dose 10 MLS/HR; Start 10/20/16 at 16 :00 Ondansetron HCl (Zofran Inj) 4 mg Q6H PRN IV NAUSEA AND/OR VOMITING; Start at 16:00 Nitroglycerin (Nitroglycerin (Sl Tab) 0.4 Mg) 1 tab Q5M PRN SL CHEST PAIN; Start 10/20/16 at 16:00 Acetaminophen (Tylenol Tab) 650 mg Q6H PRN PO PAIN LEVEL 1-3 OR FEVER; Start at 16:00 Morphine Sulfate (morphine) 2 mg Q4H PRN IV PAIN LEVEL 7-10; Start 10/20/16 at 16:00 Docusate Sodium (Colace) 100 mg Q12H PRN PO CONSTIPATION; Start 10/20/16 at 16: 00 Magnesium Hydroxide (Milk Of Mag) 30 ml DAILY PRN PO CONSTIPATION; Start at 16:00 Bisacodyl 10 mg 10 mg DAILY PRN [place] CONSTIPATION; Start 10/20/16 at 16:00 Vancomycin HCl (Vancocin) 250 ml @ 125 mls/hr Q12H IVPB Last administered on 00:45; Admin Dose 125 MLS/HR; Start 10/20/16 at 23:30 DHARMESH VELEZ MD Oct 21, 2016 11:12 Magnesium Hydroxide (Milk Of Mag) 30 ml DAILY PRN PO CONSTIPATION; Start at 16:00 Bisacodyl 10 mg 10 mg DAILY PRN [place] CONSTIPATION; Start 10/20/16 at 16:00 Vancomycin HCl (Vancocin) 250 ml @ 125 mls/hr Q12H IVPB Last administered on 00:45; Admin Dose 125 MLS/HR; Start 10/20/16 at 23:30 DHARMESH VELEZ MD Oct 21, 2016 11:12
[2016-10-21 15:04] LABS: INR 1.33; PARTIAL THROMBOPLASTIN TIME 26.6 Sec (25.0-35.0); PROTIME 16.6 Sec (12.2-14.2); PT RATIO 1.3
[2016-10-21 15:27] LABS: URINE BILIRUBIN (Dip) NEGATIVE (NEGATIVE); URINE BLOOD (Dip) NEGATIVE (NEGATIVE); URINE COLOR LT. YELLOW (YELLOW); URINE GLUCOSE (Dip) NEGATIVE (NEGATIVE); URINE KETONES (Dip) NEGATIVE (NEGATIVE); URINE LEUKOCYTE ESTERASE (Dip) NEGATIVE (NEGATIVE); URINE NITRITE (Dip) NEGATIVE (NEGATIVE); URINE UROBILINOGEN (Dip) 0.2 E.U./dL (0.1-1.0)
[2016-10-21 15:31] LABS: ADD UMIC NO; URINE TOTAL PROTEIN (Dip) NEGATIVE (NEGATIVE)
[2016-10-21] MEDS ORDERED: PROPOFOL 20 ML ONE (16:40)
[2016-10-21] MEDS ORDERED: LIDOCAINE 2% (SDV) 5 ML INJ ONE (16:40)
--- NOTE | 2016-10-21 18:04 | RADRPT ---
PROCEDURE: CT Abdomen and Pelvis without contrast. CLINICAL INDICATION: Abdominal and pelvic pain. Sepsis. TECHNIQUE: CT scan of the abdomen and pelvis without contrast was performed. Coronal and sagittal reformatted images were obtained from the axial source images. Images were reviewed on a high-resolu tion PACS workstation. Total exam DLP is 982.29 mGy-cm. CTDIvol is 14.15 mGy. One or more of the f ollowing dose reduction techniques were used: Automated exposure control, adjustment of the mA and/o r kV according to patient size, use of iterative reconstruction technique. COMPARISON: CT of the abdomen and pelvis dated August 26, 2016. FINDINGS: The lung bases are clear of any infiltrate or nodule. No effusion is seen. There are coronary arter y calcifications. There has been interval increase in size and number of innumerable hypodense hepatic masses. This i s compatible with progression of diffuse metastatic disease. There is no ductal dilatation. There is a single gallstone. No splenic or pancreatic abnormalities present. There is a 4 cm low density noncalcified right adrenal mass compatible with an adenoma. Kidneys are of normal size and contour. No hydronephrosis, calculus or masses seen. Ureters are o f normal course and caliber with no stone. No bladder mass or stone is present. Prostate and semina l vesicles are normal. There is no aneurysm. There are vascular calcifications. No adenopathy is present. No bowel mass or obstruction is present. There is diverticulosis. The appendix is normal. No phleg mon, ascites or pneumoperitoneum is visualized. Lytic lesions are seen in the spine without evidence of extraosseous extension of tumor into the cara tebral canal. There are lytic lesions of the right and left ilium. No pathologic fractures are vis ualized. IMPRESSION: 1. Progression of hepatic metastases with scattered lytic bony metastases. The primary tumor is no t clear on this exam. 2. Vascular calcifications. 3. Cholelithiasis. 4. Presumed right adrenal adenoma. 5. Diverticulosis. RPTAT: QQ .Bowen Page MD, MD Date Time Electronically viewed and signed by .Bowen Page MD, on 10/21/2016 18:03 .R/
[2016-10-21] MEDS: morphine 2 MG INJ IV PRN ×2 (18:21→22:08)
[2016-10-21] MEDS: FLUCONAZOLE 100 MG TAB PO SCH (18:56)
[2016-10-21] MEDS: SUCRALFATE (100 MG/ML) 10ML CUP PO SCH ×2 (18:56→21:46)
[2016-10-22] VITALS (13 sets, daily range): BP systolic 104–119; BP diastolic 55–63; PULSE 74–113; RESP 18
[2016-10-22] MEDS: VANCOMYCIN 1 GM in NS 250 ML IVPB SCH (00:52)
[2016-10-22] MEDS: SOD CHLORIDE 0.9% 1,000 ML IV SCH ×3 (06:02→21:14)
[2016-10-22 07:40] LABS: ADD SCAN DIFF NO
[2016-10-22 07:44] LABS: ABNORMAL IP MESSAGE 1; BASOPHILS % 0.3 % (0.0-2.0); EOSINOPHILS # 0.1 10^3/ul (0.0-0.5); EOSINOPHILS % 0.4 % (0.0-7.0); HEMATOCRIT 24.3 % (42.0-52.0); HEMOGLOBIN 8.1 g/dl (14.0-18.0); LYMPHOCYTES # 1.4 10^3/ul (0.8-2.9); LYMPHOCYTES % 12.1 % (15.0-51.0); MEAN CORPUSCULAR HEMOGLOBIN 30.2 pg (29.0-33.0); MEAN CORPUSCULAR HGB CONC 33.3 g/dl (32.0-37.0); MEAN CORPUSCULAR VOLUME 90.7 fl (82.0-101.0); MONOCYTE # 1.2 10^3/ul (0.3-0.9); MONOCYTES % 10.6 % (0.0-11.0); NEUTROPHIL # 7.8 10^3/ul (1.6-7.5); NEUTROPHILS % 69.3 % (39.0-77.0); NUCLEATED RED BLOOD CELLS # 0.3 10^3/ul (0.0-0.0); NUCLEATED RED BLOOD CELLS% 2.3 /100WBC (0.0-0.0); PLATELET COUNT 102 10^3/UL (140-415); RED BLOOD COUNT 2.68 10^6/ul (4.70-6.10); RED CELL DISTRIBUTION WIDTH 18.6 % (11.5-14.5); WHITE BLOOD COUNT 11.3 10^3/ul (4.8-10.8)
[2016-10-22 07:55] LABS: ALBUMIN 2.4 g/dl (3.3-4.9); POTASSIUM 3.2 mmol/L (3.5-5.1)
[2016-10-22 07:56] LABS: MAGNESIUM 2.1 mg/dl (1.7-2.5)
[2016-10-22 07:57] LABS: CREATININE 0.67 mg/dl (0.61-1.24)
[2016-10-22 07:58] LABS: ALBUMIN/GLOBULIN RATIO 1.04; BILIRUBIN,INDIRECT 0.4 mg/dl (0-1.1); BILIRUBIN,TOTAL 0.4 mg/dl (0.2-1.3); CALCIUM 6.5 mg/dl (8.4-10.2); TOTAL PROTEIN 4.7 g/dl (6.1-8.1)
--- NOTE | 2016-10-22 08:39 | GILP ---
DATE OF PROCEDURE: 10/21/2016 PROCEDURE: Esophagogastroduodenoscopy with biopsies. BRIEF HISTORY AND INDICATIONS: The patient is being evaluated for coffee-ground emesis. PREMEDICATION: Monitored anesthesia care by anesthesiologist. SURGEON: Dharmesh Rowell MD INSTRUMENT USED: Olympus panendoscope. TECHNIQUE: After informed consent, with the patient/relatives understanding the procedure, its indic ations, potential risks and complications, including but not limited to: allergic reaction, bleeding , perforation or infection, and after all pertinent questions were answered to the patient's satisfa ction, the patient/relatives signed witnessed informed consent. Following this, premedication was administered slowly IV push under careful cardiovascular and respi ratory monitoring with pulse oximetry, automatic blood pressure and court monitor. Once the sedative effect was achieved the patient was place in the left lateral decubitus, the panen doscope was introduced and advanced under visual control. Careful examination of the upper gastrointestinal tract, both on insertion as well as withdrawal of the instrument disclosed the following findings: ESOPHAGUS: The entire distal two-thirds of the esophagus shows extensive ulceration. No active ble eding is present. Biopsies were obtained in limited fashion to rule out Rashmi esophagitis. STOMACH: Upon entrance to the stomach air was insufflated, the gastric kelly distended normally. T here is significant erythema and edema of the mucosa. Biopsies were obtained to rule out H. pylori infection. PYLORUS: The pylorus appears patent and within normal limits, with no evidence of gastric outlet ob struction. DUODENUM: The duodenal mucosa showed the presence of 3 clean-based duodenal ulcers with no stigmata of recent bleeding or potential for rebleeding. The second portion of the duodenum disclosed no abnormalities. The instrument was then withdrawn, the patient tolerated the procedure well and was transfer out of the endoscopy suite awake, and in good condition to continue recovery under observation IMPRESSION: 1. Ulcerative esophagitis, rule out Rashmi, biopsies obtained. 2. Gastritis, rule out Helicobacter pylori infection, biopsies obtained. 3. Clean-based duodenal ulcerations with no stigmata. PLAN: The patient will be treated with PPI double dose. Carafate 1 gram q.i.d. will be added to hi s regimen and Diflucan will be added as well. Dictated By: DHARMESH ROWELL MS/PAOLA Conf#: [id number] [facility]#: [id number]
[2016-10-22 08:41] LABS: WHITE BLOOD COUNT 43.5 10^3/ul (4.8-10.8)
[2016-10-22] MEDS: PANTOPRAZOLE IV 80 MG in SOD CHLORIDE 0.9% 100 ML IV SCH (08:54)
[2016-10-22] MEDS: FLUCONAZOLE 100 MG TAB PO SCH (08:55)
[2016-10-22] MEDS: CEFEPIME 2GM/50 ML (PMX) 50 ML IVPB SCH (08:55)
[2016-10-22] MEDS: SUCRALFATE (100 MG/ML) 10ML CUP PO SCH ×4 (08:55→21:05)
[2016-10-22] MEDS: morphine 2 MG INJ IV PRN ×2 (10:23→17:42)
[2016-10-22] MEDS ORDERED: POTASSIUM PHOSPHATE 30 MM in SOD CHLORIDE 0.9% 250 ML IVPB ONE (11:00)
--- NOTE | 2016-10-22 11:01 | PN ---
Date/Time of Note Date/Time of Note DATE: 10/22/16 TIME: 10:31 Assessment/Plan VTE Prophylaxis VTE Prophylaxis Intervention: SCD's Lines/Catheters IV [facility]ter Type (from [facility]): Peripheral IV Urinary Cath still in place: Yes (condom cath) Reason Cath still needed: other (indicate) (monitor UOP ) Assessment/Plan Assessment/Plan 71-year-old male with: 1. Episode of Coffee ground emesis and melena c/w UGIB,EGD with findings of Esophagitis and ulcerations Appreciate GI recommendations Repeat h/h today and transfuse if Hb<8.0 F/u on bx results and for now holding Xeloda until follow up with oncologist. 2. Lactic acidosis and possible underlying sepsis versus severe dehydration and ongoing gastrointestinal bleeding. Resolved Blood and urine cx NGTD D/c broad spectrum IV abx and now on Diflucan based on EGD findings while r/o Rashmi infection 3. Leukocytosis with a recent injection of Neupogen over the past 2 days. WBC trending down along with other cell lines ... likely some bone marrow suppression from Chemo Monitor, will recheck in AM D/c IV abx 4. Coronary artery disease, status post stent placement. Apparently, the patient has been taken off his antiplatelet so far. Continue Carvedilol as BP tolerates. CE negative. 5. Lethargy secondary to ongoing clinical diagnosis of hematemesis, rule out underlying sepsis. Resolved this AM. PT eval 6. Tobacco use. Quit 3 months ago. 7. Hyperlipidemia. Holding Crestor for now. Prophylaxis. Sequential compression devices to lower extremities for deep venous thrombosis prophylaxis and PPI. DISPOSITION: Telemetry monitoring, repeat h/h with possible transfusion if Hb< 8.0 PT eval Subjective 24 Hr Interval Summary Free Text/Dictation Patient still lethargic but easily arousable and says he feels better Appreciate assistance from GI Dr Rowell, EGD with findings of Ulcerations and esophagitis F/u bx results Exam/Review of Systems Vital Signs Vitals Vital Signs Date Time Temp Pulse Resp B/P Pulse Ox O2 Delivery O2 Flow Rate FiO2 10/22/16 08:30 77 10/22/16 07:27 98.1 114/61 95 10/22/16 04:00 18 10/21/16 20:30 Nasal Cannula 2.0 Intake and Output 310/21/16 10/22/16 15:00 23:00 07:00 Intake Total 0 ml 1240 ml Output Total 1200 ml Balance 0 ml 40 ml Exam Constitutional: alert, oriented (x3) Respiratory: clear to auscultation, normal air movement Cardiovascular: nl pulses, regular rate and rhythm Gastrointestinal: non-tender, soft Musculoskeletal: nl extremities to inspection Extremities: normal pulses, other (no edema, clubbing or cyanosis ) Neurological: CAPACITY ANALYST II-XII intact, lethargic (but better ), nl mental status, nl speech Results Result Diagram: 10/22/1662510/22/16625 Results 24 hrs Laboratory Tests Test 10/21/16 14:15 10/22/16 06:26 Activated Partial Thromboplast Time 26.6 INR International Normalized Ratio 1.33 Prothrombin Time 16.6 H Prothrombin Time Ratio 1.3 Alanine Aminotransferase (ALT/SGPT) 46 Albumin 2.4 L Albumin/Globulin Ratio 1.04 Alkaline Phosphatase 350 H Anion Gap 11 Aspartate Amino Transf (AST/SGOT) 106 H Basophils # 0.0 Basophils % 0.3 Blood Urea Nitrogen 21 #H Calcium Level 6.5 L Carbon Dioxide Level 25 Chloride Level 108 Creatinine 0.67 Direct Bilirubin 0.00 Eosinophils # 0.1 Eosinophils % 0.4 Globulin 2.30 Glucose Level 73 Hematocrit 24.3 L Hemoglobin 8.1 L Indirect Bilirubin 0.4 Lymphocytes # 1.4 Lymphocytes % 12.1 L Magnesium Level 2.1 Mean Corpuscular Hemoglobin 30.2 Mean Corpuscular Hemoglobin Concent 33.3 Mean Corpuscular Volume 90.7 Mean Platelet Volume 11.0 H Monocytes # 1.2 H Monocytes % 10.6 Neutrophils # 7.8 H Neutrophils % 69.3 Nucleated Red Blood Cells # 0.3 H Nucleated Red Blood Cells % 2.3 H Phosphorus Level 1.0 L Platelet Count 102 #L Potassium Level 3.2 L Red Blood Count 2.68 L Red Cell Distribution Width 18.6 H Sodium Level 141 Total Bilirubin 0.4 Total Protein 4.7 L White Blood Count 11.3 #H Medications Medications Current Medications Sodium Chloride 1,000 ml @ 100 mls/hr Q10H IV Last administered on 10/22/16t 06:02; Admin Dose 100 MLS/HR; Start 10/20/16 at 16:00 Pantoprazole/ Sodium Chloride (Protonix Iv/NS) 100 ml @ 10 mls/hr Q10H IV Last administered on 10/22/16 08:54; Admin Dose 10 MLS/HR; Start 10/20/16 at 16 :00 Ondansetron HCl (Zofran Inj) 4 mg Q6H PRN IV NAUSEA AND/OR VOMITING; Start at 16:00 Nitroglycerin (Nitroglycerin (Sl Tab) 0.4 Mg) 1 tab Q5M PRN SL CHEST PAIN; Start 10/20/16 at 16:00 Acetaminophen (Tylenol Tab) 650 mg Q6H PRN PO PAIN LEVEL 1-3 OR FEVER; Start at 16:00 Morphine Sulfate (morphine) 2 mg Q4H PRN IV PAIN LEVEL 7-10 Last administered on 10/22/16 10:23; Admin Dose 2 MG; Start 10/20/16 at 16:00 Docusate Sodium (Colace) 100 mg Q12H PRN PO CONSTIPATION; Start 10/20/16 at 16: 00 Magnesium Hydroxide (Milk Of Mag) 30 ml DAILY PRN PO CONSTIPATION; Start at 16:00 Bisacodyl (Dulcolax Supp) 10 mg DAILY PRN [place] CONSTIPATION; Start 10/20/16 at 16 :00 Sucralfate (Carafate Susp) 1 gm QID PO Last administered on 10/22/16 08:55; Admin Dose 1 GM; Start 10/21/16 at 18:30 Fluconazole (Diflucan) 100 mg DAILY PO Last administered on 10/22/16 08:55; Admin Dose 100 MG; Start 10/21/16 at 18:30; Stop 10/26/16 at 18:29 Carvedilol 3.125 mg 3.125 mg BID PO Last administered on 10/22/16 08:55; Admin Dose 3.125 MG; Start 10/22/16 at 09:00 Potassium Phosphate/Sodium Chloride (K Phos (Mm)/NS) 260 ml @ 65 mls/hr ONCE ONCE IVPB ; Start 10/22/16 at 11:00; Stop 10/22/16 at 14:59 Procedures Procedures PROCEDURE: CT Abdomen and Pelvis without contrast. CLINICAL INDICATION: Abdominal and pelvic pain. Sepsis. TECHNIQUE: CT scan of the abdomen and pelvis without contrast was performed. Coronal and sagittal reformatted images were obtained from the axial source images. Images were reviewed on a high-resolution PACS workstation. Total exam DLP is 982.29 mGy-cm. CTDIvol is 14.15 mGy. One or more of the following dose reduction techniques were used: Automated exposure control, adjustment of the mA and/or kV according to patient size, use of iterative reconstruction technique. COMPARISON: CT of the abdomen and pelvis dated August 26, 2016. FINDINGS: The lung bases are clear of any infiltrate or nodule. No effusion is seen. There are coronary artery calcifications. There has been interval increase in size and number of innumerable hypodense hepatic masses. This is compatible with progression of diffuse metastatic disease. There is no ductal dilatation. There is a single gallstone. No splenic or pancreatic abnormalities present. There is a 4 cm low density noncalcified right adrenal mass compatible with an adenoma. Kidneys are of normal size and contour. No hydronephrosis, calculus or masses seen. Ureters are of normal course and caliber with no stone. No bladder mass or stone is present. Prostate and seminal vesicles are normal. There is no aneurysm. There are vascular calcifications. No adenopathy is present. No bowel mass or obstruction is present. There is diverticulosis. The appendix is normal. No phlegmon, ascites or pneumoperitoneum is visualized. Lytic lesions are seen in the spine without evidence of extraosseous extension of tumor into the vertebral canal. There are lytic lesions of the right and left ilium. No pathologic fractures are visualized. IMPRESSION: 1. Progression of hepatic metastases with scattered lytic bony metastases. The primary tumor is not clear on this exam. 2. Vascular calcifications. 3. Cholelithiasis. 4. Presumed right adrenal adenoma. 5. Diverticulosis. RPTAT: QQ .Bowen Page MD, MD Date Time Electronically viewed and signed by .Bowen Page MD, on 10/21/2016 18:03 CHAU DAVILA Oct 22, 2016 10:41
[2016-10-22 11:04] LABS: HEMATOCRIT 25.1 % (42.0-52.0); HEMOGLOBIN 8.6 g/dl (14.0-18.0)
--- NOTE | 2016-10-22 14:40 | PN ---
Date/Time of Note Date/Time of Note DATE: 10/22/16 TIME: 14:31 Assessment/Plan VTE Prophylaxis VTE Prophylaxis Intervention: SCD's Lines/Catheters IV Catheter Type (from Nrsg): Peripheral IV Urinary Cath still in place: Yes (condom cath) Reason Cath still needed: other (indicate) (PCP ) Assessment/Plan Assessment/Plan Assessment: * Anemia/dysphagia * Severe ulcerated esophagitis/erosive gastritis/3 clean-based duodenal ulcers * Metastatic colon cancer on chemotherapy coronary artery disease * Coronary artery disease * Dyslipidemia Plan: * Continue present regimen * Review pathology as soon as available * Patient appears safe for outpatient follow-up from GI viewpoint * Further recommendations depend on clinical course Subjective 24 Hr Interval Summary Free Text/Dictation Course reviewed with nursing staff Family members at bedside Patient reports significant improvement via commodity specialist Still having dysphagia but less severe Tolerating diet, much more awake EGD 10/22/2016 1. Ulcerative esophagitis, rule out Rashmi, biopsies obtained. 2. Gastritis, rule out Helicobacter pylori infection, biopsies obtained. 3. Clean-based duodenal ulcerations with no stigmata. Findings on endoscopy explained in detail Pathology pending could be reviewed as an outpatient if ready for discharge Exam/Review of Systems Vital Signs Vitals Vital Signs Date Time Temp Pulse Resp B/P Pulse Ox O2 Delivery O2 Flow Rate FiO2 10/22/16 12:38 87 10/22/16 11:42 98.2 18 119/63 93 10/21/16 20:30 Nasal Cannula 2.0 Intake and Output 10/21/16 10/21/16 10/22/16 15:00 23:00 07:00 Intake Total 0 ml 1240 ml Output Total 1200 ml Balance 0 ml 40 ml Exam Constitutional: alert, oriented, well developed Head: normocephalic Eyes: EOMI, nl conjunctiva, nl lids ENMT: nl external ears & nose, nl lips & teeth, nl nasal mucosa & septum Respiratory: clear to auscultation, normal air movement Cardiovascular: regular rate and rhythm Gastrointestinal: soft, mild epigastric tenderness Musculoskeletal: nl extremities to inspection Neurological: COMPRESSOR TECHNICIAN II-XII intact Results Result Diagram: 10/22/16 1037 10/22/16 0626 Results 24 hrs Laboratory Tests Test 10/22/16 06:26 10/22/16 10:37 Alanine Aminotransferase (ALT/SGPT) 46 Albumin 2.4 L Albumin/Globulin Ratio 1.04 Alkaline Phosphatase 350 H Anion Gap 11 Aspartate Amino Transf (AST/SGOT) 106 H Basophils # 0.0 Basophils % 0.3 Blood Urea Nitrogen 21 #H Calcium Level 6.5 L Carbon Dioxide Level 25 Chloride Level 108 Creatinine 0.67 Direct Bilirubin 0.00 Eosinophils # 0.1 Eosinophils % 0.4 Globulin 2.30 Glucose Level 73 Hematocrit 24.3 L 25.1 L Hemoglobin 8.1 L 8.6 L Indirect Bilirubin 0.4 Lymphocytes # 1.4 Lymphocytes % 12.1 L Magnesium Level 2.1 Mean Corpuscular Hemoglobin 30.2 Mean Corpuscular Hemoglobin Concent 33.3 Mean Corpuscular Volume 90.7 Mean Platelet Volume 11.0 H Monocytes # 1.2 H Monocytes % 10.6 Neutrophils # 7.8 H Neutrophils % 69.3 Nucleated Red Blood Cells # 0.3 H Nucleated Red Blood Cells % 2.3 H Phosphorus Level 1.0 L Platelet Count 102 #L Potassium Level 3.2 L Red Blood Count 2.68 L Red Cell Distribution Width 18.6 H Sodium Level 141 Total Bilirubin 0.4 Total Protein 4.7 L White Blood Count 11.3 #H Medications Medications Current Medications Sodium Chloride (NS) 1,000 ml @ 100 mls/hr Q10H IV Last administered on 06:02; Admin Dose 100 MLS/HR; Start 10/20/16 at 16:00 Ondansetron HCl (Zofran Inj) 4 mg Q6H PRN IV NAUSEA AND/OR VOMITING; Start at 16:00 Nitroglycerin (Nitroglycerin (Sl Tab) 0.4 Mg) 1 tab Q5M PRN SL CHEST PAIN; Start 10/20/16 at 16:00 Acetaminophen (Tylenol Tab) 650 mg Q6H PRN PO PAIN LEVEL 1-3 OR FEVER; Start at 16:00 Morphine Sulfate (morphine) 2 mg Q4H PRN IV PAIN LEVEL 7-10 Last administered on 10/22/16 10:23; Admin Dose 2 MG; Start 10/20/16 at 16:00 Docusate Sodium (Colace) 100 mg Q12H PRN PO CONSTIPATION; Start 10/20/16 at 16: 00 Magnesium Hydroxide (Milk Of Mag) 30 ml DAILY PRN PO CONSTIPATION; Start at 16:00 Bisacodyl (Dulcolax Supp) 10 mg DAILY PRN [place] CONSTIPATION; Start 10/20/16 at 16 :00 Sucralfate (Carafate Susp) 1 gm QID PO Last administered on 10/22/16 13:30; Admin Dose 1 GM; Start 10/21/16 at 18:30 Fluconazole (Diflucan) 100 mg DAILY PO Last administered on 10/22/16 08:55; Admin Dose 100 MG; Start 10/21/16 at 18:30; Stop 10/26/16 at 18:29 Carvedilol 3.125 mg 3.125 mg BID PO Last administered on 10/22/16 08:55; Admin Dose 3.125 MG; Start 10/22/16 at 09:00 Potassium Phosphate/Sodium Chloride (K Phos (Mm)/NS) 260 ml @ 65 mls/hr ONCE ONCE IVPB Last administered on 10/22/16 13:30; Admin Dose 65 MLS/HR; Start at 11:00; Stop 10/22/16 at 14:59 Pantoprazole (Protonix Iv) 40 mg BID@06,18 IV ; Start 10/22/16 at 18:00 DHARMESH VELEZ MD Oct 22, 2016 14:39
[2016-10-22] MEDS: PANTOPRAZOLE 40 MG INJ IV SCH (17:34)
[2016-10-23] VITALS (9 sets, daily range): BP systolic 100–111; BP diastolic 56–64; PULSE 64–128; RESP 18
[2016-10-23] MEDS: PANTOPRAZOLE 40 MG INJ IV SCH (06:14)
[2016-10-23 07:32] LABS: ADD SCAN DIFF NO
[2016-10-23 07:34] LABS: ABNORMAL IP MESSAGE 1; HEMATOCRIT 24.9 % (42.0-52.0); HEMOGLOBIN 8.2 g/dl (14.0-18.0); MEAN CORPUSCULAR HEMOGLOBIN 30.1 pg (29.0-33.0); MEAN CORPUSCULAR HGB CONC 32.9 g/dl (32.0-37.0); MEAN CORPUSCULAR VOLUME 91.5 fl (82.0-101.0); MEAN PLATELET VOLUME 11.3 fl (7.4-10.4); PLATELET COUNT 88 10^3/UL (140-415); RED BLOOD COUNT 2.72 10^6/ul (4.70-6.10); RED CELL DISTRIBUTION WIDTH 18.8 % (11.5-14.5); WHITE BLOOD COUNT 9.3 10^3/ul (4.8-10.8)
[2016-10-23 07:50] LABS: ALBUMIN 2.3 g/dl (3.3-4.9)
[2016-10-23 07:53] LABS: ALBUMIN/GLOBULIN RATIO 1.09; BILIRUBIN,INDIRECT 0.6 mg/dl (0-1.1); BILIRUBIN,TOTAL 0.6 mg/dl (0.2-1.3); CREATININE 0.61 mg/dl (0.61-1.24); TOTAL PROTEIN 4.4 g/dl (6.1-8.1)
[2016-10-23 07:54] LABS: CALCIUM 6.8 mg/dl (8.4-10.2)
[2016-10-23 07:55] LABS: MAGNESIUM 1.9 mg/dl (1.7-2.5); PHOSPHORUS 1.1 mg/dl (2.5-4.9)
[2016-10-23] MEDS: SUCRALFATE (100 MG/ML) 10ML CUP PO SCH ×3 (08:03→16:01)
[2016-10-23] MEDS: FLUCONAZOLE 100 MG TAB PO SCH (08:04)
[2016-10-23] MEDS ORDERED: SOD CHLORIDE 0.9% 250 ML IV* ONE (09:45)
[2016-10-23] MEDS ORDERED: POTASSIUM CHLORIDE (SR) 20 MEQ TAB PO STA (09:47)
[2016-10-23 09:59] LABS: EOSINOPHILS # 0.1 10^3/ul (0.0-0.5); LYMPHOCYTES # 1.9 10^3/ul (0.8-2.9); MONOCYTE # 1.1 10^3/ul (0.3-0.9); NEUTROPHIL # 5.2 10^3/ul (1.6-7.5)
[2016-10-23] MEDS: morphine 2 MG INJ IV PRN (10:57)
--- NOTE | 2016-10-23 11:10 | PN ---
Date/Time of Note Date/Time of Note DATE: 10/23/16 TIME: 11:07 Assessment/Plan VTE Prophylaxis VTE Prophylaxis Intervention: SCD's Lines/Catheters IV Catheter Type (from Nrs): Peripheral IV Urinary Cath still in place: Yes Reason Cath still needed: other (indicate) (PCP choice) Assessment/Plan Assessment/Plan Assessment: * Anemia/dysphagia * Severe ulcerated esophagitis/erosive gastritis/3 clean-based duodenal ulcers * Metastatic colon cancer on chemotherapy coronary artery disease * Coronary artery disease * Dyslipidemia Plan: * Continue present regimen * Review pathology as soon as available * Patient appears safe for outpatient follow-up from GI viewpoint * Further recommendations depend on clinical course Subjective 24 Hr Interval Summary Free Text/Dictation Course reviewed with nursing staff Family members at bedside Patient reports significant improvement Much more alert, wants to go home as soon as possible Hemoglobin stable at 8.1 No significant dysphagia Tolerating diet, much more awake Findings on endoscopy explained in detail Pathology pending could be reviewed as an outpatient if ready for discharge Exam/Review of Systems Vital Signs Vitals Vital Signs Date Time Temp Pulse Resp B/P Pulse Ox O2 Delivery O2 Flow Rate FiO2 10/23/16 08:11 89 10/23/16 08:05 98.2 18 107/56 94 10/21/16 20:30 Nasal Cannula 2.0 Intake and Output 10/22/16 10/22/16 10/23/16 15:00 23:00 07:00 Intake Total 715 ml 1195 ml 1500 ml Output Total 2100 ml Balance 715 ml -905 ml 1500 ml Exam Constitutional: alert, oriented, well developed Head: normocephalic Eyes: EOMI, nl conjunctiva, nl lids ENMT: nl external ears & nose, nl lips & teeth, nl nasal mucosa & septum Respiratory: clear to auscultation, normal air movement Cardiovascular: regular rate and rhythm Gastrointestinal: soft, mild epigastric tenderness Musculoskeletal: nl extremities to inspection Neurological: REAL TIME TRADER II-XII intact Results Result Diagram: 10/23/16 0628 10/23/16 0620 Results 24 hrs Laboratory Tests Test 10/23/16 06:20 10/23/16 06:28 Alanine Aminotransferase (ALT/SGPT) 44 Albumin 2.3 L Albumin/Globulin Ratio 1.09 Alkaline Phosphatase 353 H Anion Gap 12 Aspartate Amino Transf (AST/SGOT) 111 H Blood Urea Nitrogen 14 Calcium Level 6.8 L Carbon Dioxide Level 26 Chloride Level 106 Creatinine 0.61 Direct Bilirubin 0.00 Globulin 2.10 Glucose Level 80 Indirect Bilirubin 0.6 Potassium Level 3.0 L Sodium Level 141 Total Bilirubin 0.6 Total Protein 4.4 L Band Neutrophils % 11.0 H Eosinophils # 0.1 Eosinophils % 1.0 Hematocrit 24.9 L Hemoglobin 8.2 L Lymphocytes # 1.9 Lymphocytes % 20.0 Magnesium Level 1.9 Mean Corpuscular Hemoglobin 30.1 Mean Corpuscular Hemoglobin Concent 32.9 Mean Corpuscular Volume 91.5 Mean Platelet Volume 11.3 H Monocytes # 1.1 H Monocytes % 12.0 H Neutrophils # 5.2 Neutrophils % 56.0 Nucleated Red Blood Cells % 3.0 H Phosphorus Level 1.1 L Platelet Count 88 L Red Blood Count 2.72 L Red Cell Distribution Width 18.8 H White Blood Count 9.3 Medications Medications Current Medications Ondansetron HCl (Zofran Inj) 4 mg Q6H PRN IV NAUSEA AND/OR VOMITING; Start at 16:00 Nitroglycerin (Nitroglycerin (Sl Tab) 0.4 Mg) 1 tab Q5M PRN SL CHEST PAIN; Start 10/20/16 at 16:00 Acetaminophen (Tylenol Tab) 650 mg Q6H PRN PO PAIN LEVEL 1-3 OR FEVER; Start at 16:00 Morphine Sulfate (morphine) 2 mg Q4H PRN IV PAIN LEVEL 7-10 Last administered on 10/23/16 10:57; Admin Dose 2 MG; Start 10/20/16 at 16:00 Docusate Sodium (Colace) 100 mg Q12H PRN PO CONSTIPATION; Start 10/20/16 at 16: 00 Magnesium Hydroxide (Milk Of Mag) 30 ml DAILY PRN PO CONSTIPATION; Start at 16:00 Bisacodyl (Dulcolax Supp) 10 mg DAILY PRN [place] CONSTIPATION; Start 10/20/16 at 16 :00 Sucralfate (Carafate Susp) 1 gm QID PO Last administered on 10/23/16 08:03; Admin Dose 1 GM; Start 10/21/16 at 18:30 Fluconazole (Diflucan) 100 mg DAILY PO Last administered on 10/23/16 08:04; Admin Dose 100 MG; Start 10/21/16 at 18:30; Stop 10/26/16 at 18:29 Carvedilol (Coreg) 3.125 mg BID PO Last administered on 10/23/16 08:04; Admin Dose 3.125 MG; Start 10/22/16 at 09:00 Pantoprazole 40 mg 40 mg BID@06,18 IV Last administered on 10/23/16 06:14; Admin Dose 40 MG; Start 10/22/16 at 18:00 Potassium Phosphate/Sodium Chloride (K Phos (Mm)/NS) 260 ml @ 65 mls/hr ONCE IVPB ; Start 10/23/16 at 11:30; Stop 10/23/16 at 15:29 DHARMESH VELEZ MD Oct 23, 2016 11:09
[2016-10-23] MEDS ORDERED: POTASSIUM PHOSPHATE 30 MM in SOD CHLORIDE 0.9% 250 ML IVPB SCH (11:30)
[2016-10-23] MEDS ORDERED: POTASSIUM CHLORIDE (SR) 10 MEQ TAB PO ONE (13:00)
--- NOTE | 2016-10-23 13:01 | PN ---
Date/Time of Note Date/Time of Note DATE: 10/23/16 TIME: 12:45 Assessment/Plan VTE Prophylaxis VTE Prophylaxis Intervention: SCD's Lines/Catheters IV Catheter Type (from [facility]): Peripheral IV Urinary Cath still in place: Yes (condom cath ) Reason Cath still needed: other (indicate) (condom catheter) Assessment/Plan Assessment/Plan 71-year-old male with: 1. Episode of Coffee ground emesis and melena c/w UGIB,EGD with findings of Esophagitis and ulcerations Appreciate GI recommendations Hb remains stable Continue Diflucan x 14 days F/u on bx results and for now holding Xeloda until follow up with oncologist next week. 2. Lactic acidosis and possible underlying sepsis versus severe dehydration and ongoing gastrointestinal bleeding. Resolved Blood and urine cx NGTD D/c broad spectrum IV abx and now on Diflucan based on EGD findings while r/o Rashmi infection 3. Leukocytosis with a recent injection of Neupogen over the past 2 days. WBC trending down along with other cell lines ... likely some bone marrow suppression from Chemo Continue Diflucan 4. Coronary artery disease, status post stent placement. Apparently, the patient has been taken off his antiplatelet so far. Continue Carvedilol as BP tolerates. CE negative. 5. Lethargy secondary to ongoing clinical diagnosis of hematemesis, rule out underlying sepsis. Resolved this AM. PT eval 6. Tobacco use. Quit 3 months ago. 7. Hyperlipidemia. Resume Crestor. Prophylaxis. Sequential compression devices to lower extremities for deep venous thrombosis prophylaxis and PPI. DISPOSITION: D/c home today with PCP and Oncology follow up within 1 week. Subjective 24 Hr Interval Summary Free Text/Dictation Patient doing well today Back to baseline and stable Hb Repleting k/phos and plan for d/c home this afternoon Exam/Review of Systems Vital Signs Vitals Vital Signs Date Time Temp Pulse Resp B/P Pulse Ox O2 Delivery O2 Flow Rate FiO2 10/23/16 12:09 89 10/23/16 12:07 99.6 18 103/64 92 10/21/16 20:30 Nasal Cannula 2.0 Intake and Output 10/22/16 10/22/16 10/23/16 15:00 23:00 07:00 Intake Total 715 ml 1195 ml 1500 ml Output Total 2100 ml Balance 715 ml -905 ml 1500 ml Exam Constitutional: alert, oriented, well developed Respiratory: clear to auscultation, normal air movement Cardiovascular: nl pulses, regular rate and rhythm Gastrointestinal: non-tender, soft Musculoskeletal: nl extremities to inspection Extremities: normal pulses, other (no edema, clubbing or cyanosis ) Neurological: DOOR TO DOOR SELLING DISTRIBUTOR II-XII intact, nl mental status, nl speech, other ( generalized weakness much improved ) Results Result Diagram: 10/23/16 0628 10/23/16 0620 Results 24 hrs Laboratory Tests Test 10/23/16 06:20 10/23/16 06:28 Alanine Aminotransferase (ALT/SGPT) 44 Albumin 2.3 L Albumin/Globulin Ratio 1.09 Alkaline Phosphatase 353 H Anion Gap 12 Aspartate Amino Transf (AST/SGOT) 111 H Blood Urea Nitrogen 14 Calcium Level 6.8 L Carbon Dioxide Level 26 Chloride Level 106 Creatinine 0.61 Direct Bilirubin 0.00 Globulin 2.10 Glucose Level 80 Indirect Bilirubin 0.6 Potassium Level 3.0 L Sodium Level 141 Total Bilirubin 0.6 Total Protein 4.4 L Band Neutrophils % 11.0 H Eosinophils # 0.1 Eosinophils % 1.0 Hematocrit 24.9 L Hemoglobin 8.2 L Lymphocytes # 1.9 Lymphocytes % 20.0 Magnesium Level 1.9 Mean Corpuscular Hemoglobin 30.1 Mean Corpuscular Hemoglobin Concent 32.9 Mean Corpuscular Volume 91.5 Mean Platelet Volume 11.3 H Monocytes # 1.1 H Monocytes % 12.0 H Neutrophils # 5.2 Neutrophils % 56.0 Nucleated Red Blood Cells % 3.0 H Phosphorus Level 1.1 L Platelet Count 88 L Red Blood Count 2.72 L Red Cell Distribution Width 18.8 H White Blood Count 9.3 Medications Medications Current Medications Ondansetron HCl (Zofran Inj) 4 mg Q6H PRN IV NAUSEA AND/OR VOMITING; Start at 16:00 Nitroglycerin (Nitroglycerin (Sl Tab) 0.4 Mg) 1 tab Q5M PRN SL CHEST PAIN; Start 10/20/16 at 16:00 Acetaminophen (Tylenol Tab) 650 mg Q6H PRN PO PAIN LEVEL 1-3 OR FEVER; Start at 16:00 Morphine Sulfate (morphine) 2 mg Q4H PRN IV PAIN LEVEL 7-10 Last administered on 10/23/16t 10:57; Admin Dose 2 MG; Start 10/20/16 at 16:00 Docusate Sodium (Colace) 100 mg Q12H PRN PO CONSTIPATION; Start 10/20/16 at 16: 00 Magnesium Hydroxide (Milk Of Mag) 30 ml DAILY PRN PO CONSTIPATION; Start at 16:00 Bisacodyl (Dulcolax Supp) 10 mg DAILY PRN NC CONSTIPATION; Start 10/20/16 at 16 :00 Sucralfate (Carafate Susp) 1 gm QID PO Last administered on 10/23/16 08:03; Admin Dose 1 GM; Start 10/21/16 at 18:30 Fluconazole (Diflucan) 100 mg DAILY PO Last administered on 10/23/16 08:04; Admin Dose 100 MG; Start 10/21/16 at 18:30; Stop 10/26/16 at 18:29 Carvedilol (Coreg) 3.125 mg BID PO Last administered on 10/23/16 08:04; Admin Dose 3.125 MG; Start 10/22/16 at 09:00 Pantoprazole 40 mg 40 mg BID@06,18 IV Last administered on 10/23/16 06:14; Admin Dose 40 MG; Start 10/22/16 at 18:00 Potassium Phosphate/Sodium Chloride (K Phos (Mm)/NS) 260 ml @ 65 mls/hr ONCE IVPB Last administered on 10/23/16 11:47; Admin Dose 65 MLS/HR; Start at 11:30; Stop 10/23/16 at 15:29 CHAU DAVILA Oct 23, 2016 12:59
--- NOTE | 2016-10-23 13:03 | PDOCDIS ---
Discharge Instructions CONDITION Patient Condition: Stable HOME CARE INSTRUCTIONS: Diet Instructions: Low Fat /Cholesterol ACTIVITY: Activity Restrictions: Slowly Increase Activity FOLLOW UP/APPOINTMENTS Appointments Follow up with PCP within 1 week Follow up with Oncologist within 1 week CHAU DAVILA Oct 23, 2016 13:02
[2016-10-23] MEDS ORDERED: FLUC100T PO (13:04)
[2016-10-23] MEDS ORDERED: CARAS PO (13:04)
[2016-10-23] MEDS ORDERED: PANT40TA3 PO (13:04)
[2016-10-23] MEDS ORDERED: PANTOPRAZOLE (EC) 40 MG TAB PO ONE (16:00)
--- NOTE | 2016-10-25 18:13 | RADRPT ---
Vent Rate: 89 bpm RR Interval: 0 msec [place] Interval: 138 msec QRS Duration: 68 msec QT Interval: 390 msec QTC Interval: 474 msec P-R-T [place]: 41 - -29 - 53 degrees Sinus rhythm with occasional premature ventricular complexes Low voltage QRS Borderline ECG Electronically Signed By: Uli Garcia [phone]
--- NOTE | 2016-10-26 07:04 | DS ---
DATE OF ADMISSION: 10/20/2016 DATE OF DISCHARGE: 10/23/2016 PRIMARY CARE PHYSICIAN: ____ PRIMARY ONCOLOGIST: Dany Villalta MD, at [facility]. CONSULTANTS DURING THIS ADMISSION: Dr. Rowell from Gastroenterology. CHIEF COMPLAINT ON ADMISSION: Vomiting blood. BRIEF HISTORY OF PRESENT ILLNESS: This is a 71-year-old male with history of tobacco use, coronary artery disease, hyperlipidemia, recent diagnosis of metastatic colon cancer, stage SHAI with metastas is to the liver, currently undergoing chemotherapy, both IV and p.o. Xeloda, presented to the emerge ncy department with acute onset of coffee-ground emesis approximately 12 hours prior to presentation . In the emergency department, the patient had an NG tube placed. He was noted to have ongoing cof fee-ground emesis. At that time, he was admitted to a telemetry bed, typed and crossed. The patient also had an FFP drawn. CBC did show elevated white blood cell count of around 40,000 wi th 6% bandemia. His lactic acid was elevated, there was concern for sepsis. Once the spouse did com e back, she did report that the patient was actually on Neupogen prior to admission at least for a c ouple of days. His hemoglobin at first came back at 11.6. On second check it was down to 9. He was hypotensive, tachycardic; therefore the decision was made to given 2 units of packed red blood cell s at that time. He was seen by gastroenterology, Dr. Rwoell and taken to EGD within 24 hours. On E GD it was found that the patient had esophagitis and ulcerations. Biopsies were taken and he was st arted on Diflucan due to concern for possible Rashmi esophagitis. He was also started on high dose proton pump inhibitors, which was maintained and Carafate. The patient remained stable on IV fluid s. His hemoglobin at the time of discharge was 8.2, but stable. Therefore, there is no need for tr ansfusion prior to discharge. His white blood cell count did come down to 9.3, along with all the other , most likely as an effect of chemotherapy more than anything else. IV antibiotics were discontinued. He was maintained on Diflucan. He remained afebrile. His blood cultures remained ne gative along with urine culture. Therefore, he was discharged home on 10/23/2016 on proton pump inh ibitors and Carafate and Diflucan. His Xeloda has been held during this admission and will be held until followup with his oncologist. Also, I have communicated with the patient's family that the on cologist may need to resume his Neupogen injections after checking his counts sometime this week. DISPOSITION: Discharge home. DISCHARGE CONDITION: Stable. DISCHARGE DIET: Cardiac diet. DISCHARGE ACTIVITY: Slowly increase activity at home. FOLLOWUP: The patient is to follow with his primary care physician within 1 week and follow up with his oncologist within 1 week. DISCHARGE MEDICATIONS 1. Diflucan 100 mg p.o. daily for 14 days. 2. Protonix 40 mg p.o. b.i.d. for 30 days, with 3 refills. 3. Carafate 1 gram p.o. q.i.d. 4. Carvedilol 3.125 mg p.o. b.i.d. 5. Crestor 20 mg p.o. at bedtime. DISCONTINUED MEDICATIONS: For now includes Xeloda. DISCHARGE DIAGNOSES: 1. Hematemesis secondary to esophagitis and ulcerations. 2. Lactic acidosis, resolved. 3. Leukocytosis, resolved. 4. Coronary artery disease. 5. Lethargy, resolved. 6. Tobacco use, quit. 7. Hyperlipidemia. Dictated By: CHAU MONTIEL/PAOLA Conf#: [id number] DID#: [id number]
== END 2016-10-23 16:45 | disposition home or self-care (01) | DRG 378 ==
LOC: E/R 10:59 → MS4 13:25
PROVIDERS: ADMIT Internal Medicine; ATTEND Internal Medicine
PROC: 0DB58ZX Excision of Esophagus, Via Natural or Artificial Opening Endoscopic, Diagnostic (ICD-10-PCS; 2016-10-21)
PROC: 0DB68ZX Excision of Stomach, Via Natural or Artificial Opening Endoscopic, Diagnostic (ICD-10-PCS; 2016-10-21)
PROC: 30233N1 Transfusion of Nonautologous Red Blood Cells into Peripheral Vein, Percutaneous Approach (ICD-10-PCS; 2016-10-21)
PROC: 0DB98ZX Excision of Duodenum, Via Natural or Artificial Opening Endoscopic, Diagnostic (ICD-10-PCS; principal; 2016-10-21 17:00)
PROC: 30233N1 Transfusion of Nonautologous Red Blood Cells into Peripheral Vein, Percutaneous Approach (ICD-10-PCS; 2016-10-22)
PROC: 30233K1 Transfusion of Nonautologous Frozen Plasma into Peripheral Vein, Percutaneous Approach (ICD-10-PCS; 2016-10-22)
DX: K26.4 Chronic or unspecified duodenal ulcer with hemorrhage (principal); E87.2 Acidosis; C78.7 Secondary malignant neoplasm of liver and intrahepatic bile duct; E86.0 Dehydration; C18.9 Malignant neoplasm of colon, unspecified; D64.9 Anemia, unspecified; R13.10 Dysphagia, unspecified; I25.10 Atherosclerotic heart disease of native coronary artery without angina pectoris; E78.5 Hyperlipidemia, unspecified; R53.83 Other fatigue; Z87.891 Personal history of nicotine dependence; Z95.5 Presence of coronary angioplasty implant and graft
CPT/HCPCS: 36415; 36430; 71010; 74176; 80053; 81003; 82140; 82550; 82553; 83605; 83690; 83735; 84100; 84484; 85014; 85018; 85025; 85610; 85730; 86850; 86900; 86901; 86920; 87040; 87075; 87086; 88305; 93005; 96374; 96375; 96376; A4310; C9113; J0692; J2060; J2270; J2405; J2765; J3370; J7030; J7040; J7050; P9016; P9059

== ENCOUNTER 2016-10-29 20:04 | Inpatient (IN) | payer MEDICARE, OTHER ==
[~2016-10-29] VITALS: Ht 170.2 cm; Wt 76.9 kg
[~2016-10-29 20:04] MED LIST changes: -ALBU18HF INHALATION; -ASPI-664 PO; +CARAS PO; -CLOP75TA27 PO; -ERGO500014 PO; +FLUC100T PO; -FURO40TA4 PO; -IBUP400T22 PO; -MELO-110 PO; -METF-382 PO; +PANT40TA3 PO; -PARO20TA58 PO; -POTA8CAP PO; -TAMS-14 PO
[2016-10-29 20:15] VITALS: TEMP 97.8
[2016-10-29] MEDS ORDERED: FENT1PAT7 TD (20:32)
[2016-10-29] MEDS ORDERED: SOD CHLORIDE 0.9% 1,000 ML IV STA (20:59)
[2016-10-29 21:30] LABS: ADD SCAN DIFF NO
[2016-10-29 21:32] LABS: ABNORMAL IP MESSAGE 1; HEMOGLOBIN 9.4 g/dl (14.0-18.0); MEAN CORPUSCULAR HEMOGLOBIN 31.1 pg (29.0-33.0); MEAN CORPUSCULAR HGB CONC 32.4 g/dl (32.0-37.0); MEAN PLATELET VOLUME 11.5 fl (7.4-10.4); PLATELET COUNT 142 10^3/UL (140-415); RED BLOOD COUNT 3.02 10^6/ul (4.70-6.10); RED CELL DISTRIBUTION WIDTH 22.4 % (11.5-14.5); WHITE BLOOD COUNT 5.3 10^3/ul (4.8-10.8)
[2016-10-29 21:33] LABS: CHLORIDE 102 mmol/L (97-110); SODIUM 138 mmol/L (135-144)
[2016-10-29 21:34] LABS: POTASSIUM 3.4 mmol/L (3.5-5.1)
[2016-10-29 21:36] LABS: CREATININE 0.69 mg/dl (0.61-1.24)
[2016-10-29 21:37] LABS: ANION GAP 10 (8-16); BLOOD UREA NITROGEN 15 mg/dl (7-20); CALCIUM 8.2 mg/dl (8.4-10.2); CARBON DIOXIDE 29 mmol/L (21-31); GLUCOSE 87 mg/dl (70-220)
[2016-10-29 21:42] LABS: INR 1.16; PARTIAL THROMBOPLASTIN TIME 31.4 Sec (25.0-35.0); PROTIME 14.8 Sec (12.2-14.2); PT RATIO 1.2
[2016-10-29 21:56] LABS: TROPONIN-I < 0.012 ng/ml (0.00-0.12)
[2016-10-29 22:01] LABS: BASOPHILS % 0.4 % (0.0-2.0); EOSINOPHILS % 0.8 % (0.0-7.0); LYMPHOCYTES # 0.7 10^3/ul (0.8-2.9); LYMPHOCYTES % 14.1 % (15.0-51.0); MONOCYTE # 0.6 10^3/ul (0.3-0.9); MONOCYTES % 11.6 % (0.0-11.0); NEUTROPHIL # 3.7 10^3/ul (1.6-7.5); NEUTROPHILS % 72.1 % (39.0-77.0)
--- NOTE | 2016-10-29 22:16 | RADRPT ---
PROCEDURE: CT Head without. CLINICAL INDICATION: Syncope. TECHNIQUE: The study was performed utilizing a multi-slice, multidetector CT scanner. Direct spira l 1 mm axial sections were obtained through the head without the use of intravenous contrast materia l. 1 or more of the following dose reduction techniques were utilized: Automated exposure control, adjustment of the mA and/or kV according to patient's size, iterative reconstruction technique. Co rafael and sagittal reformations were obtained. The images were reviewed on a PACS workstation. RADIATION DOSE: CTDIvol: 44.9 mGyDLP: 720.2 mGy-cm COMPARISON: No prior studies are available for comparison. FINDINGS: There is no intracranial hemorrhage, extra-axial fluid collection, mass lesion, midline shift or hyd rocephalus. There is mild prominence of the cerebral sulci, lateral and third ventricles. There is mild periventricular and subcortical white matter hypodensity. There is a small 2 mm calcification of the left frontal sulcus. There is mild arteriosclerotic calcification of the parasellar interna l carotid arteries. The lake-white matter differentiation is preserved. The basal cisterns are pat ent. The midline structures are intact. There is pneumatization bilateral petrous apices without e vidence of inflammatory changes, normal variant. The orbits, calvarium and extracranial soft tissue s are normal in appearance. The visualized paranasal sinuses, mastoid air cells and middle ear cavit ies are normally aerated. IMPRESSION: 1. No acute intracranial abnormality. No intracranial hemorrhage, extra-axial fluid collection, ma ss lesion or hydrocephalous. 2. Mild peripheral and central cerebral volume loss. 3. 2 mm calcification involving the right superior frontal sulcus, likely related to remote prior n eurocysticercosis. 4. Mild periventricular and subcortical white matter hypodensity, likely related to chronic microan giopathic changes. RPTAT: HGAS .Andry Lynn MD, Date Time Electronically viewed and signed by .Andry Lynn MD, MD on 10/29/2016 22:16 .S/
[2016-10-29] MEDS ORDERED: SOD CHLORIDE 0.9% 1,000 ML IV ONE (22:30)
--- NOTE | 2016-10-29 22:32 | RADRPT ---
PROCEDURE: CT Abdomen and pelvis without contrast. CLINICAL INDICATION: Abdominal pain. TECHNIQUE: CT scan of the abdomen and pelvis was performed on a multi-detector high-resolution CT scanner. Contiguous axial images were obtained from the lung bases to the ischial tuberosities wit hout intravenous contrast. Coronal and sagittal reformatted images were also obtained. Images were reviewed on the PACS workstation. One or more of the following dose reduction techniques were used: - Automated exposure control. - Adjustment of the mA and/or kV according to patient size. - Use of iterative reconstruction technique. Exam CTD/vol = 15.53 mGy. Total exam DLP = 1022.70 mGy-cm. COMPARISON: 10/20/2016. FINDINGS: Evaluation of the lung bases demonstrates bilateral small pleural effusion with underlying atelectas is. Abdomen: The liver is normal in size. Again demonstrated are the innumerable metastases throughout the liver with the largest in the left lobe measuring 7.0 x 6.5 cm. There is no dilatation of the b iliary tree. The gallbladder is mildly contracted and contains a gallstone. There is mild gallblad jenny wall thickening and pericholecystic stranding. The spleen, pancreas and left adrenal gland are within normal limits. There is a nodule within the right adrenal gland measuring 4.4 x 2.9 cm with Hounsfield characteristics consistent with adenoma. Bilateral kidneys are normal in size with no co ntour deforming mass identified. There is no radiopaque renal or ureteral calculus identified. The re is no hydronephrosis or hydroureter. There is no retroperitoneal adenopathy. The abdominal aort a is of normal caliber with scattered atherosclerotic calcifications. There is no abnormal bowel wall thickening or distension. There is no bowel obstruction or free air . A normal appendix is identified. There there are scattered sigmoid diverticuli without evidence of diverticulitis. There is no ascites. Pelvis: The bladder is unremarkable. There is a small left inguinal hernia containing fat. There is trace pelvic free fluid. The prostate and seminal vesicles are within normal limits. There is n o significant pelvic adenopathy. Evaluation of the osseous structures demonstrates scattered small lucent lesions within the bony ske leton. IMPRESSION: Cholelithiasis. There is mild gallbladder wall thickening which is new compared with the prior stud y. Clinical correlation and further evaluation by ultrasound is recommended. Bilateral small pleural effusions with underlying atelectasis, slightly increased. Hepatic metastases and scattered lytic bony metastases, unchanged. Presumed adrenal adenoma, unchanged. Scattered sigmoid diverticuli without evidence of diverticulitis. Vascular calcifications reflective of atherosclerosis. Small left inguinal hernia containing fat. Trace pelvic free fluid. .William Hawk MD, MD Date Time Electronically viewed and signed by .William Hawk MD, MD on 10/29/2016 22:32 .T/
--- NOTE | 2016-10-29 22:35 | RADRPT ---
PROCEDURE: XR Chest. CLINICAL INDICATION: Syncope. TECHNIQUE: Single frontal chest x-ray. COMPARISON: 10/20/2016 FINDINGS: There is right internal jugular central venous line with tip at the junction of SVC and right atrium .. Heart is normal in size.. There is hypoventilation with minimal bibasilar atelectasis.. There i s no pleural effusion. There is no pneumothorax. There are degenerative changes of the thoracic sp ine.. IMPRESSION: Hypoventilation with minimal bibasilar atelectasis. Right internal jugular central line with tip in the junction of SVC and right atrium. RPTAT: HMVK .Everette Bojorquez MD, MD Date Time Electronically viewed and signed by .Everette Bojorquez MD, on 10/29/2016 22:35 .K/
[2016-10-29 22:54] LABS: ANISOCYTOSIS 1+; PLATELET ESTIMATE PLT APPEAR ADEQUATE
[2016-10-29 23:06] LABS: AMMONIA < 9 umol/l (9-30)
[2016-10-29] MEDS ORDERED: DICLOFENAC SODIUM 37.5 MG/ML VIAL IV STA (23:24)
[2016-10-29] MEDS ORDERED: ONDANSETRON 4 MG INJ IV STA (23:24)
[2016-10-30 00:16] LABS: URINE BLOOD (Dip) POC 1+ (NEGATIVE)
[2016-10-30 00:41] LABS: ADD UMIC YES; URINE BILIRUBIN (Dip) NEGATIVE (NEGATIVE); URINE BLOOD (Dip) 1+ (NEGATIVE); URINE COLOR LT. YELLOW (YELLOW); URINE GLUCOSE (Dip) NEGATIVE (NEGATIVE); URINE KETONES (Dip) NEGATIVE (NEGATIVE); URINE LEUKOCYTE ESTERASE (Dip) NEGATIVE (NEGATIVE); URINE NITRITE (Dip) NEGATIVE (NEGATIVE); URINE TOTAL PROTEIN (Dip) NEGATIVE (NEGATIVE); URINE UROBILINOGEN (Dip) 1.0 E.U./dL (0.1-1.0)
[2016-10-30 00:54] LABS: BACTERIA,URINE FEW; MUCUS,URINE MANY; SQUAMOUS EPITHELIAL CELL,UR FEW
[2016-10-30] MEDS ORDERED: ONDANSETRON 4 MG INJ IV PRN ×2 (01:30→02:00)
[2016-10-30] MEDS ORDERED: ACETAMINOPHEN 325 MG TAB PO PRN (01:30)
[2016-10-30] MEDS ORDERED: morphine 2 MG INJ IV PRN (02:00)
[2016-10-30] MEDS ORDERED: BISACODYL 10 MG SUPP PR PRN (02:00)
[2016-10-30] MEDS ORDERED: NACL 0.9% 3 ML SYG IV SCH (02:00)
--- NOTE | 2016-10-30 03:18 | ERA ---
ER Documentation Chief Complaint Date/Time DATE: 10/30/16 TIME: 03:11 Chief Complaint ALOC, lethargic,left rib pain s/p fall 3 days ago,hx colon CA stage 4 HPI 71-year-old male presents emergency room with generalized weakness as well as left rib pain after he fell 3 days ago. He denies head injury. He does have a history of colon cancer that is stage IV with multiple metastases. Last chemo was last Monday. Family is concerned that the patient is not swallowing. He will not swallow at all and for the last couple of days he is not even taking liquid. Patient denies pain and denies fever and chills. ROS All systems reviewed and are negative except as per history of present illness. Medications Home Meds Active Scripts Pantoprazole* (Protonix*) 40 Mg Tablet.dr, 40 MG PO BID for 30 Days, TAB 3 Refills Prov:CHAU DAVILA 10/23/16 Sucralfate* (Carafate*) 1 Gm/10 Ml Susp, 1 GM PO QID for 30 Days, 3 Refills Prov:CHAU DAVILA 10/23/16 Fluconazole* (Diflucan*) 100 Mg Tablet, 100 MG PO DAILY for 14 Days, TAB Prov:CHAU DAVILA 10/23/16 Reported Medications Fentanyl Patch* (Duragesic Patch*) 12 Mcg/Hr Transdermal Patch, 1 PATCH TD Q72H , PATCH 25MCG 10/29/16 Carvedilol* (Carvedilol*) 3.125 Mg Tablet, 3.125 MG PO BID, #60 TAB 08/26/16 Rosuvastatin Calcium* (Crestor*) 20 Mg Tablet, 20 MG PO QHS, #30 TAB 08/26/16 Discontinued Reported Medications Capecitabine* (Xeloda*) 500 Mg Tablet, 1500 MG PO QAM, TBS 10/20/16 Capecitabine* (Xeloda*) 500 Mg Tablet, 1000 MG PO QPM, TAB 10/20/16 Allergies Allergies: Coded Allergies: No Known Drug Allergy (Verified Allergy, Mild, 10/29/16) PMhx/Soc History of Surgery: No Anesthesia Reaction: No Hx Neurological Disorder: No Hx Respiratory Disorders: No Hx Cardiac Disorders: No Hx Psychiatric Problems: No Hx Miscellaneous Medical Probl: Yes (hyperlipidemia) Hx Alcohol Use: No Hx Substance Use: No Hx Tobacco Use: No Smoking Status: Never smoker Physical Exam Vitals Vital Signs Date Time Temp Pulse Resp B/P Pulse Ox O2 Delivery O2 Flow Rate FiO2 10/29/16 22:22 76 20 110/69 93 Room Air 10/29/16 20:45 82 18 111/73 93 Room Air 10/29/16 20:30 82 20 98/73 92 Room Air 10/29/16 20:15 97.8 81 20 97/64 92 Room Air 10/29/16 20:14 97.7 83 18 96/55 93 Physical Exam Const: [] No distress Head: Atraumatic Eyes: Normal Conjunctiva, EOMI, PERRLA ENT: Normal External Ears, Nose and Mouth. Neck: Full range of motion..~ No meningismus. Resp: Clear to auscultation bilaterally Cardio: Regular rate and rhythm, no murmurs Abd: Soft, mild left upper quadrant tenderness and tenderness to the left lower ribs without guarding or rebound, non distended. Normal bowel sounds Skin: No petechiae or rashes Back: No midline or flank tenderness Ext: No cyanosis, or edema Neur: Awake and alert and oriented 3, cranial nerves II through XII intact, no focal deficits Result Diagram: 10/29/16202910/29/162029 Results 24 hrs Laboratory Tests Test 10/29/16 20:30 10/29/16 22:30 10/30/16 00:10 10/30/16 00:14 White Blood Count 5.310^3/ul Red Blood Count 3.0210^6/ul Hemoglobin 9.4g/dl Hematocrit 29.0% Mean Corpuscular Volume 96.0fl Mean Corpuscular Hemoglobin 31.1pg Mean Corpuscular Hemoglobin Concent 32.4g/dl Red Cell Distribution Width 22.4% Platelet Count 16416^3/UL Mean Platelet Volume 11.5fl Neutrophils % 72.1% Lymphocytes % 14.1% Monocytes % 11.6% Eosinophils % 0.8% Basophils % 0.4% Metamyelocytes % % Nucleated Red Blood Cells % 0.0/100WBC Neutrophils # 3.710^3/ul Lymphocytes # 0.710^3/ul Monocytes # 0.610^3/ul Eosinophils # 0.010^3/ul Basophils # 0.010^3/ul Nucleated Red Blood Cells # 0.010^3/ul Platelet Estimate PLT APPEAR ADEQUATE Anisocytosis 1+ Macrocytosis OCCASIONAL Prothrombin Time 14.8Sec Prothrombin Time Ratio 1.2 INR International Normalized Ratio 1.16 Activated Partial Thromboplast Time 31.4Sec Sodium Level 138mmol/L Potassium Level 3.4mmol/L Chloride Level 102mmol/L Carbon Dioxide Level 29mmol/L Anion Gap 10 Blood Urea Nitrogen 15mg/dl Creatinine 0.69mg/dl Glucose Level 87mg/dl Calcium Level 8.2mg/dl Troponin I < 0.012ng/ml Lactic Acid Level 2.0mmol/L Ammonia < 9umol/l Urine Color LT. YELLOW Urine Clarity CLEAR Urine pH 6.0 Urine Specific [place] 1.015 Urine Ketones NEGATIVE Urine Nitrite NEGATIVE Urine Bilirubin NEGATIVE Urine Urobilinogen 1.0 E.U./dL Urine Leukocyte Esterase NEGATIVE Urine Microscopic RBC 10-25/HPF Urine Microscopic WBC 0-2/HPF Urine Squamous Epithelial Cells FEW Urine Bacteria FEW Urine Mucus MANY Urine Hemoglobin 1+ Urine Glucose NEGATIVE% Urine Total Protein NEGATIVE Bedside Urine pH (LAB) 6.0 Bedside Urine Protein (LAB) Trace Bedside Urine Glucose (UA) Negative Bedside Urine Ketones (LAB) Trace Bedside Urine Blood 1+ Bedside Urine Nitrite (LAB) Negative Bedside Urine Leukocyte Esterase (L Negative Current Medications Medications (Trade) Dose Ordered Sig/Jose M Route PRN Reason Start Time Stop Time Status Last Admin Dose Admin Sodium Chloride 1,000 ml @ 1,000 mls/hr Q1H STAT IV 10/29/16 20:59 10/29/16 21:58 DC 10/29/16 22:27 Sodium Chloride (NS) 1,000 ml @ 1,000 mls/hr Q1H ONCE IV 10/29/16 22:30 10/29/16 23:29 DC 10/29/16 22:29 Diclofenac Sodium (Dyloject) 37.5 mg ONCE STAT IV 10/29/16 23:24 10/29/16 23:26 DC Ondansetron HCl (Zofran Inj) 4 mg ONCE STAT IV 10/29/16 23:24 10/29/16 23:26 DC Procedures/MDM 71-year-old male is failure to thrive and inability to swallow. Failed ER swallow study. She also had physical exam signs of dehydration. Patient is unable to nourish himself according to family and the patient. Believe he needs to be admitted for neurological examination or a GI workup for possible esophageal motility problem. Is no pain in the esophagus and I doubt any acute anatomical problem. Patient was hydrated with normal saline and given Zofran. CT abdomen pelvis shows no surgical emergency and laboratories are not consistent with any kind of infection. Increasing debility may be due to progression of the metastatic disease. No apparent urinary tract infection. Patient's vital signs remained stable. Spoke with Dr. moser will and agrees to admit the patient for further workup. CT head interpretation: No acute process, I see no hemorrhage, no mass-effect no midline shift, no skull fracture\ CT abdomen pelvis interpretation: Multiple metastatic lesions throughout the abdomen including the liver, trace free fluid, no obstruction, no free air, no acute fractures Chest x-ray interpretation: I see no acute process. I see no widened mediastinum, no pneumothorax, trace pleural effusions, no infiltrates, no fractures per Departure Diagnosis: Primary Impression: Dehydration Additional Impressions: Failure to thrive Dysphagia Generalized weakness Condition: Stable OLIVIA HARRIS DO Oct 30, 2016 03:18
[2016-10-30 03:27] VITALS: BP 111/66; RESP 18
[2016-10-30 03:55] VITALS: Ht 170.2 cm; Wt 76.9 kg
[2016-10-30] MEDS: D5W-0.45 NACL + KCL 20 MEQ 1,000 ML IV SCH ×3 (03:55→20:48)
[2016-10-30 07:47] VITALS: BP 105/56; RESP 18
[2016-10-30] MEDS ORDERED: ENOXAPARIN 40 MG/0.4 ML SYG SC SCH (09:00)
[2016-10-30] MEDS: FAMOTIDINE 20 MG INJ IV SCH ×2 (09:22→20:34)
--- NOTE | 2016-10-30 10:12 | CONS ---
Date/Time of Note Date/Time of Note DATE: 10/30/16 TIME: 10:12 Assessment/Plan Assessment/Plan Additional Assessment/Plan Dysphagia Order/Review Swallow evaluation for oral gratification Concern for obstruction and neck, CT neck ordered Order Nutrition consult to determine rate and type of G tube feed CT abdomen: 1. Progression of hepatic metastases with scattered lytic bony metastases. The primary tumor is not clear on this exam. 2. Vascular calcifications. 3. Cholelithiasis.4. Presumed right adrenal adenoma.5. Diverticulosis. EGD + PEG, pt advised of R/B/A of procedure and provides informed consent to procedures Monitor tube feed Q6hrs, hold for residuals greater 150 mL Cleanse site and change dressing daily Stage IV colon cancer with metastasis to liver [facility] depend on clinical course Patient seen in collaboration with Dr. Rowell Consultation Date/Type/Reason Admit Date/Time Oct 30, 2016 at 01:26 Type of Consultation: GI Reason for Consultation Failure to thrive Hx of Present Illness Mr.Berj Cheung is a 71-year-old Jamaican speaking man that presents with family at bedside secondary to complaints of difficulty swallowing in addition to dysphasia. Per family at bedside, patient has been unable to swallow food or drinks for the last 7-8 days, and reports unable to swallow pills for the last 2 days. Family states that when patient tries to swallow he will start coughing up and at times vomits to as well. Patient had previous episode of hematemesis with prior hospitalization on October 20, 2016. Patient had EGD with Dr. Rowell on October 21 and was noted to have ulcerative esophagitis with suspicions of candidal infection. Biopsies negative for malignancy and fungal organisms. Patient was DC'd home with PPI and Diflucan. Patient was asymptomatic for 2-3 days and symptoms later returned. At bedside patient is reporting burning pain with swallowing and diffuse abdominal pain. He denies fever, chills, chest pain, and shortness of breath. Patient has history of tobacco use, coronary artery disease, hyperlipidemia, recent diagnosis of metastatic colon cancer stage SHAI with metastases to the liver, who has been undergoing chemotherapy. Family states last chemotherapy was September 22 and he was scheduled for another round in 2 weeks in addition to family meeting. At bedside risks/benefits/alternatives to EGD and PEG were explained in detail to patient and family and all parties provide informed consent to proceed with procedure. Per HPI Past Medical History Medical History: cancer, hypertension Social History Smoking Status: Former smoker Exam/Review of Systems Vital Signs Vitals Vital Signs Date Time Temp Pulse Resp B/P Pulse Ox O2 Delivery O2 Flow Rate FiO2 10/30/16 07:47 98.0 78 18 105/56 91 10/30/16 01:53 Room Air Intake and Output 10/29/16 10/29/16 10/30/16 15:00 23:00 07:00 Intake Total 2000 ml 100 ml Balance 2000 ml 100 ml Exam Constitutional: alert, oriented, well developed Psych: nl mood/affect Head: normocephalic Eyes: EOMI, nl conjunctiva, nl lids ENMT: nl external ears & nose, nl lips & teeth, nl nasal mucosa & septum Respiratory: clear to auscultation, normal air movement Cardiovascular: regular rate and rhythm Gastrointestinal: soft, diffuse lower abdominal tenderness Musculoskeletal: nl extremities to inspection 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 Results Result Diagram: 10/29/16202910/29/162029 Results 24 hrs Laboratory Tests Test 10/29/16 20:30 10/29/16 22:30 10/30/16 00:10 10/30/16 00:14 White Blood Count 5.3 # Red Blood Count 3.02 L Hemoglobin 9.4 L Hematocrit 29.0 L Mean Corpuscular Volume 96.0 Mean Corpuscular Hemoglobin 31.1 Mean Corpuscular Hemoglobin Concent 32.4 Red Cell Distribution Width 22.4 H Platelet Count 142 # Mean Platelet Volume 11.5 H Neutrophils % 72.1 Lymphocytes % 14.1 L Monocytes % 11.6 H Eosinophils % 0.8 Basophils % 0.4 Metamyelocytes % Nucleated Red Blood Cells % 0.0 Neutrophils # 3.7 Lymphocytes # 0.7 L Monocytes # 0.6 Eosinophils # 0.0 Basophils # 0.0 Nucleated Red Blood Cells # 0.0 Platelet Estimate PLT APPEAR ADEQUATE Anisocytosis 1+ Macrocytosis OCCASIONAL Prothrombin Time 14.8 H Prothrombin Time Ratio 1.2 INR International Normalized Ratio 1.16 Activated Partial Thromboplast Time 31.4 Sodium Level 138 Potassium Level 3.4 L Chloride Level 102 Carbon Dioxide Level 29 Anion Gap 10 Blood Urea Nitrogen 15 Creatinine 0.69 Glucose Level 87 Calcium Level 8.2 L Troponin I < 0.012 Lactic Acid Level 2.0 Ammonia < 9 #L Urine Color LT. YELLOW Urine Clarity CLEAR Urine pH 6.0 Urine Specific Grants 1.015 Urine Ketones NEGATIVE Urine Nitrite NEGATIVE Urine Bilirubin NEGATIVE Urine Urobilinogen 1.0 E.U./dL Urine Leukocyte Esterase NEGATIVE Urine Microscopic RBC 10-25 Urine Microscopic WBC 0-2 Urine Squamous Epithelial Cells FEW Urine Bacteria FEW Urine Mucus MANY Urine Hemoglobin 1+ H Urine Glucose NEGATIVE Urine Total Protein NEGATIVE Bedside Urine pH (LAB) 6.0 Bedside Urine Protein (LAB) Trace H Bedside Urine Glucose (UA) Negative Bedside Urine Ketones (LAB) Trace H Bedside Urine Blood 1+ H Bedside Urine Nitrite (LAB) Negative Bedside Urine Leukocyte Esterase (L Negative Medications Medications Current Medications Potassium Chloride/Dextrose/ Sod Cl (D5-1/2ns + KCl 20 Meq) 1,000 ml @ 100 mls/ hr Q10H IV Last administered on 10/30/16 03:55; Admin Dose 100 MLS/HR; Start 10/30/16 at 01:34 Ondansetron HCl (Zofran Inj) 4 mg Q6H PRN IV NAUSEA AND/OR VOMITING; Start at 02:00 Morphine Sulfate (morphine) 2 mg Q4H PRN IV SEVERE PAIN LEVEL 7-10; Start 10/30 at 02:00 Bisacodyl (Dulcolax Supp) 10 mg DAILY PRN [place] CONSTIPATION; Start 10/30/16 at 02 :00 Famotidine (Pepcid Iv) 20 mg Q12 IV Last administered on 10/30/16 09:22; Admin Dose 20 MG; Start 10/30/16 at 09:00 Enoxaparin Sodium (Lovenox) 40 mg DAILY SC Last administered on 10/30/16 09:33 ; Admin Dose 40 MG; Start 10/30/16 at 09:00 MATHEW DONIS Oct 30, 2016 10:12
--- NOTE | 2016-10-30 10:45 | HP ---
Date/Time of Note Date/Time of Note DATE: 10/30/16 TIME: 10:30 Assessment/Plan VTE Prophylaxis VTE Prophylaxis Intervention: SCD's Lines/Catheters IV [facility] Peripheral IV Urinary Cath still in place: No Assessment/Plan Assessment/Plan [facility] 1. Mr. Cheung is a 71-year-old man with sore throat, dysphagia, and severe dehydration after no PO intake for greater than 48-hours. He had presented earlier this month with hemetemesis, and found on EGD to have gastritis, esophagitis, and duodenal ulceration. Hematocrit last night (volume-contracted ) was 29%. CT abd/pelvis shows gallbladder wall thickening, liver mets with scattered bony lytic lesions, and non-inflamed diverticuli. Brain CT showed only age-related volume loss. I'm concerned about the possibility of a brainstem stroke impairing his deglutition. * Spoke this morning with Dr. Rowell and with and the plan is for EGD and PEG placement tomorrow. * Started on IV famotidine q12h * Contrast CT scan of the neck to evaluate for any external compression, though I was not able to palpate anything on exam. He has normal renal function. * Re-check H&H to see if he will need transfusion after receiving IV fluids; possible heme-concentrated prior to IV fluids. 2. Metastatic colon cancer, without obvious relation to the swallowing problem , under active treatment with Xeloda. * Patient off fentanyl patch; will hold for now, given his lethargy and lack of pain complaints. 3. Coronary artery disease, status post stent placement. Off Plavix currently , because of previous bleeding. Troponin negative. * Need to evaluate for stability on EGD tomorrow that would allow resumption of Plavix * Hold Lovenox in light of previous bleeding, and will go with SCDs instead. * Move to telemetry for closer monitoring * Discussed code status with his daughter and sister, and [id number]. Family has not discussed previously. Will continue FULL-CODE for now. 4. Dehydration, weakness, unsteady gait 5. Hyperlipidemia. * Hold Crestor and other PO meds for now 6. Prophylaxis. Sequential compression devices to lower extremities for deep venous thrombosis prevention; famotidine for GI prophylaxis. 7. DISPOSITION: GI consult this morning with Dr. Rowell. EGD/PEG tomorrow. Med/Surg under observation. Patient is Full-Code. Miriam Callum Hilliard MD PhD [phone] HPI/ROS Admit Date/Time Admit Date/Time Oct 30, 2016 at 01:26 Hx of Present Illness DATE OF ADMISSION: 10/30/2016 PRIMARY CARE PHYSICIAN: Dr He Simons. PRIMARY ONCOLOGIST: CASEY BECERRIL MD at [facility]. CHIEF COMPLAINT ON ADMISSION: Dehydrated, unable to swallow HISTORY OF PRESENT ILLNESS: Mr. Cheung is a 71-year-old man with history of coronary artery disease, hyperlipidemia, and colon cancer stage IV-A with metastases to the liver, with most recent chemotherapy (Xeloda) 13 days ago (). He was hospitalized at [facility] two weeks ago (10/20/16) with leukocytosis and weakness following a fall, treated with antibiotics, and feeling very weak since then with difficulty ambulating. He presented to the [facility] emergency department with severe throat pain, progressive dysphagia for the past two weeks , and inability to swallow the past two days. He had taken no fluid for at least 48-hours. No recurrence of the hematemesis that preceded the previous hospitalization, though he had difficulty swallowing even at that time. The last time he presented with multiple episodes of coffee-ground emesis, with associated melena. In the emergency department at that time, he had two additional episodes of hematemesis, and was started on a Protonix drip. Hemoglobin then was 11.6, down to 9 g/dl after hydration, with white blood cell count of 43,000 after receiving Neupogen injections the preceding two days. Lactic acid was elevated, there was concern for sepsis. He was transfused with two units of packed red blood cells, and evaluated for gastroenterology by Dr. Rowell. EGD showed esophagitis, gastritis, and duodenal ulceration. He was started on Diflucan for possible Candidiasis, but the gastric and esophageal biopsies were ultimately normal with no Rashmi. Blood cultures were negative, and C.diff toxin also negative, and he was discharged home on 10/23/2016. ALLERGIES: NO KNOWN ALLERGIES. PAST MEDICAL HISTORY: 1. Coronary artery disease. 2. Metastatic colon cancer stage SHAI with mets to the liver. Apparently, the patient had a PET CT as an outpatient with possibly additional sites of metastases. 3. Tobacco use for 50 years, until two months ago 4. Hyperlipidemia. PAST SURGICAL HISTORY: 1. Patient had a MediPort placed for chemotherapy this year. 2. He did have multiple angiograms with stent placement according to the family. 3. One stent placement was 7 years ago. The second stent placement 2 years ago. SOCIAL HISTORY: Born in [facility], moved to [facility], and has been in the for 40 years. 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 Lives with his . Two healthy children, including a daughter who is 7-months with her second child. No alcohol use currently, though he has been an accomplished drinker in the past. OUTPATIENT MEDICATIONS: 1. Xeloda 1500 mg p.o. q.a.m. and 1000 mg p.o. q. p.m. 2. Carvedilol 3.125 mg p.o. b.i.d. 3. Crestor 20 mg p.o. at bedtime. 4. Of note, the patient has been taken off all antiplatelets including his Plavix and aspirin that he was on before. ROS As above. PMH/Family/Social Social History Smoking Status: Former smoker Exam/Review of Systems Vital Signs Vitals Vital Signs Date Time Temp Pulse Resp B/P Pulse Ox O2 Delivery O2 Flow Rate FiO2 10/30/16 07:47 98.0 78 18 105/56 91 10/30/16 01:53 Room Air Intake and Output 10/29/16 10/29/16 10/30/16 15:00 23:00 07:00 Intake Total 2000 ml 100 ml Balance 2000 ml 100 ml Exam Exam GENERAL: Tired-appearing, lethargic, easily arousable. Primarily Welsh- speaking. HEENT: Pupils are equal, round and reactive to light. Extraocular muscles are intact. Anicteric sclerae. Upper and lower plates in place, with dry mucosa. CARDIAC: Regular rhythm, normal rate. No murmur. Symmetric peripheral pulses. NECK: No JVD, no thyromegaly. No neck masses palpated. LUNGS: Clear to auscultation bilaterally. ABDOMEN: Soft, nontender, nondistended on exam. Bowel sounds are normal. No rebound or guarding. EXTREMITIES: No edema, clubbing or cyanosis. No ange arthritis. NEUROLOGIC: Lethargic, but oriented to person and place. Moving all extremities, with 5/5 distal strength. Cranial nerves and light-touch sensation intact. Toes downgoing. Labs Result Diagram: 10/29/16202910/29/162029 Medications Medications Current Medications Potassium Chloride/Dextrose/ Sod Cl (D5-1/2ns + KCl 20 Meq) 1,000 ml @ 100 mls/ hr Q10H IV Last administered on 10/30/16 03:55; Admin Dose 100 MLS/HR; Start 10/30/16 at 01:34 Ondansetron HCl (Zofran Inj) 4 mg Q6H PRN IV NAUSEA AND/OR VOMITING; Start at 02:00 Morphine Sulfate (morphine) 2 mg Q4H PRN IV SEVERE PAIN LEVEL 7-10; Start 10/30 at 02:00 Bisacodyl (Dulcolax Supp) 10 mg DAILY PRN [place] CONSTIPATION; Start 10/30/16 at 02 :00 Famotidine (Pepcid Iv) 20 mg Q12 IV Last administered on 10/30/16 09:22; Admin Dose 20 MG; Start 10/30/16 at 09:00 Enoxaparin Sodium (Lovenox) 40 mg DAILY SC Last administered on 10/30/16 09:33 ; Admin Dose 40 MG; Start 10/30/16 at 09:00 BRIAN HILLIARD M.D. Oct 30, 2016 10:45
[2016-10-30 12:51] LABS: ADD SCAN DIFF NO
[2016-10-30 12:53] LABS: ABNORMAL IP MESSAGE 1; BASOPHILS % 0.4 % (0.0-2.0); EOSINOPHILS # 0.1 10^3/ul (0.0-0.5); EOSINOPHILS % 1.3 % (0.0-7.0); HEMATOCRIT 27.7 % (42.0-52.0); HEMOGLOBIN 8.6 g/dl (14.0-18.0); LYMPHOCYTES # 0.7 10^3/ul (0.8-2.9); LYMPHOCYTES % 14.7 % (15.0-51.0); MEAN CORPUSCULAR HEMOGLOBIN 30.5 pg (29.0-33.0); MEAN CORPUSCULAR VOLUME 98.2 fl (82.0-101.0); MEAN PLATELET VOLUME 10.8 fl (7.4-10.4); MONOCYTE # 0.6 10^3/ul (0.3-0.9); MONOCYTES % 12.3 % (0.0-11.0); NEUTROPHIL # 3.3 10^3/ul (1.6-7.5); NEUTROPHILS % 70.7 % (39.0-77.0); PLATELET COUNT 125 10^3/UL (140-415); RED BLOOD COUNT 2.82 10^6/ul (4.70-6.10); RED CELL DISTRIBUTION WIDTH 22.7 % (11.5-14.5); WHITE BLOOD COUNT 4.7 10^3/ul (4.8-10.8)
[2016-10-30 13:02] LABS: POTASSIUM 3.4 mmol/L (3.5-5.1)
[2016-10-30 13:05] LABS: CREATININE 0.58 mg/dl (0.61-1.24)
[2016-10-30 13:06] LABS: CALCIUM 7.4 mg/dl (8.4-10.2)
[2016-10-30 20:00] VITALS: BP 101/59; RESP 18
[2016-10-30] MEDS ORDERED: IODIXANOL LOCM 100 ML BTL ONE (22:02)
[2016-10-30] MEDS ORDERED: SOD CHLORIDE 0.9% 100 ML ONE (22:02)
--- NOTE | 2016-10-30 22:26 | RADRPT ---
PROCEDURE: CT Head with and without. CLINICAL INDICATION: Aphasia, severe neck pain. History of metastatic colon cancer. TECHNIQUE: The study was performed utilizing a multi-slice, multidetector CT scanner. Direct spira l 1 mm axial sections were obtained through the head with and without the use of intravenous contras t material. 1 or more of the following dose reduction techniques were utilized: Automated exposure control, adjustment of the mA and/or kV according to patient's size, iterative reconstruction techn ique. Coronal and sagittal reformations were obtained. The images were reviewed on a PACS workstati on. RADIATION DOSE: CTDIvol: 44.6 mGyDLP: 1440.5 mGy-cm COMPARISON: 10/29/2016 FINDINGS: There is no intracranial hemorrhage, extra-axial fluid collection, mass lesion, midline shift or hyd rocephalus. There is mild prominence of the cerebral sulci, lateral and third ventricles. There is mild periventricular and subcortical white matter hypodensity. 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 T here is no abnormal parenchymal, leptomeningeal or dural enhancement. No evidence of intracranial m etastasis at this time. There is mild arteriosclerotic calcification of the parasellar internal car otid arteries. The lake-white matter differentiation is preserved. The basal cisterns are patent. The midline structures are intact. There is stable appearance of several small benign arachnoid gr anulations. The orbits, calvarium and extracranial soft tissues are normal in appearance. The visua lized paranasal sinuses, mastoid air cells and middle ear cavities are normally aerated. IMPRESSION: 1. No acute intracranial abnormality. No intracranial hemorrhage, extra-axial fluid collection, ma ss lesion or hydrocephalous. 2. Mild peripheral and central cerebral volume loss. 3. Mild periventricular and subcortical white matter hypodensity, likely related to chronic microan giopathic changes. 4. 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 5. No abnormal areas of contrast enhancement to suggest metastasis at this time. MRI of the brain may be helpful for further evaluation. RPTAT: HGAS .Andry Lynn MD, MD Date Time Electronically viewed and signed by .Andry Lynn MD, MD on 10/30/2016 22:26 .S/
[2016-10-31] VITALS (18 sets, daily range): BP systolic 87–119; BP diastolic 52–85; PULSE 82–90; RESP 16–22
[2016-10-31] MEDS: D5W-0.45 NACL + KCL 20 MEQ 1,000 ML IV SCH ×2 (00:38→12:37)
[2016-10-31 05:32] LABS: ADD SCAN DIFF NO
[2016-10-31 05:53] LABS: ABNORMAL IP MESSAGE 1; BASOPHILS % 0.5 % (0.0-2.0); EOSINOPHILS # 0.1 10^3/ul (0.0-0.5); EOSINOPHILS % 1.3 % (0.0-7.0); LYMPHOCYTES # 0.7 10^3/ul (0.8-2.9); MEAN CORPUSCULAR HEMOGLOBIN 31.5 pg (29.0-33.0); MEAN CORPUSCULAR HGB CONC 32.1 g/dl (32.0-37.0); MEAN CORPUSCULAR VOLUME 97.9 fl (82.0-101.0); MEAN PLATELET VOLUME 11.2 fl (7.4-10.4); MONOCYTE # 0.5 10^3/ul (0.3-0.9); MONOCYTES % 13.4 % (0.0-11.0); NEUTROPHIL # 2.4 10^3/ul (1.6-7.5); PLATELET COUNT 128 10^3/UL (140-415); RED BLOOD COUNT 2.86 10^6/ul (4.70-6.10); RED CELL DISTRIBUTION WIDTH 22.8 % (11.5-14.5); WHITE BLOOD COUNT 3.7 10^3/ul (4.8-10.8)
[2016-10-31 06:13] LABS: INR 1.36; PROTIME 16.8 Sec (12.2-14.2); PT RATIO 1.3
[2016-10-31 06:14] LABS: PARTIAL THROMBOPLASTIN TIME 35.5 Sec (25.0-35.0)
[2016-10-31 06:17] LABS: POTASSIUM 3.4 mmol/L (3.5-5.1)
[2016-10-31 06:19] LABS: CREATININE 0.59 mg/dl (0.61-1.24)
[2016-10-31 06:20] LABS: CALCIUM 7.3 mg/dl (8.4-10.2); PHOSPHORUS 1.4 mg/dl (2.5-4.9)
[2016-10-31 06:21] LABS: MAGNESIUM 1.9 mg/dl (1.7-2.5)
[2016-10-31 06:49] LABS: THYROID STIMULATING HORMONE 2.77 MIU/L (0.465-4.680)
[2016-10-31] MEDS: FAMOTIDINE 20 MG INJ IV SCH (08:43)
[2016-10-31] MEDS ORDERED: SOD CHLORIDE 0.9% 100 ML ONE (09:20)
[2016-10-31] MEDS ORDERED: IODIXANOL LOCM 100 ML BTL ONE (09:20)
--- NOTE | 2016-10-31 10:52 | RADRPT ---
PROCEDURE: CT scan of the neck with contrast. CLINICAL INDICATION: pain, swelling ; colon cancer TECHNIQUE: CT scan of the neck was performed. The patient was examined with the use of intravenou s administration of 100 cc of Isovue 300 iodinated contrast. No reported complications occurred. One or more of the following dose reduction techniques were used: Automated exposure control, Adjust ment of the mA and/or kV according to patient size, and/or use of iterative reconstruction technique . DOSE: CTDI = 10 mGy and the DLP = 296 mGy-cm. COMPARISON: None available FINDINGS: Partially imaged right chest port catheter. No cervical lymphadenopathy. [place] tonsillitis. The bilateral parotid and submandibular glands are unremarkable Multinodular thyroid gland. No significant airway narrowing The bilateral prestyloid parapharyngeal spaces and retropharyngeal spaces are unremarkable. The major cervical vasculature are patent. Left maxillary sinus mucosal thickening/retention cyst. Severe degenerative changes of the spine. Nonspecific 5 mm sclerotic lesion within C4. Focal lytic lesion in C2 with erosion of the anterior cortex. An additional right lytic lesion is seen in C7 w ith erosion of the inferior endplate. An additional left lytic lesion is seen within C7. IMPRESSION: No evidence of cervical lymphadenopathy. 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 Severe degenerative changes of the cervical spine. Nonspecific sclerotic lesion in C4. RPTAT: AA .Alli Goldberg MD, MD Date Time Electronically viewed and signed by .Alli Goldberg MD, MD on 10/31/2016 10:52 .T/
[2016-10-31] MEDS ORDERED: CEFAZOLIN 1 GM/50 ML (PMX) 50 ML IVPB ONE (11:30)
[2016-10-31] MEDS ORDERED: POTASSIUM PHOSPHATE 30 MM in SOD CHLORIDE 0.9% 250 ML IVPB SCH (13:00)
--- NOTE | 2016-10-31 13:07 | PN ---
Date/Time of Note Date/Time of Note DATE: 10/31/16 TIME: 12:59 Assessment/Plan VTE Prophylaxis VTE Prophylaxis Intervention: SCD's Lines/Catheters IV C[facility] Type (from [facility] [place] Lock Urinary Cath still in place: No Assessment/Plan Assessment/Plan 71-year-old man with: 1. Sore throat, dysphagia, and severe dehydration after no PO intake for greater than 48-hours. Patient odynophagia and painful dysphagia likely due to esophagitis and ulcers Pathology form EGD last week , no fletcher CT head and CT neck negative for acute findings PEG tube today Should be on PPI bid IVF for now 2. Metastatic colon cancer, without obvious relation to the swallowing problem , under active treatment with Xeloda. Follow up with outpatient Oncology Agree with holding off Fentanyl patch Patient much more awake and alert today 3. Coronary artery disease, status post stent placement. Off Plavix currently , because of previous bleeding. Troponin negative. Continue current meds 4. Dehydration, weakness, unsteady gait: IVF and PT eval prior to discharge 5. Hyperlipidemia: resume crestor after Peg tube placed Prophylaxis. Sequential compression devices to lower extremities for deep venous thrombosis prevention; PPI for GI prophylaxis. DISPOSITION: EGD/PEG today. Med/Surg. Full-Code. Subjective 24 Hr Interval Summary Free Text/Dictation Patient awake and alert Reports and also confirmed with ST, patient with painful swallowing actually CT head repeat stable with no acute findings CT neck also stable with known lytic bone lesions c/w metastatic disease EGD/PEG pending this AM Exam/Review of Systems Vital Signs Vitals Vital Signs Date Time Temp Pulse Resp B/P Pulse Ox O2 Delivery O2 Flow Rate FiO2 10/31/16 12:49 98.3 85 20 102/85 93 Nasal Cannula 2.0 Intake and Output 10/30/16 10/30/16 10/31/16 15:00 23:00 07:00 Intake Total 900 ml 200 ml 1250 ml Output Total 320 ml Balance 900 ml -120 ml 1250 ml Exam Constitutional: alert, oriented, other (divehi speaking ) Respiratory: clear to auscultation, normal air movement Cardiovascular: nl pulses, regular rate and rhythm Gastrointestinal: non-tender, soft Musculoskeletal: nl extremities to inspection Extremities: normal pulses, other (no edema, clubbing ) 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, nl mental status, nl speech, other ( generalised weakness ) Results Result Diagram: 10/31/16 0455 10/31/16 0455 Results 24 hrs Laboratory Tests Test 10/31/16 04:55 White Blood Count 3.7 #L Red Blood Count 2.86 L Hemoglobin 9.0 L Hematocrit 28.0 L Mean Corpuscular Volume 97.9 Mean Corpuscular Hemoglobin 31.5 Mean Corpuscular Hemoglobin Concent 32.1 Red Cell Distribution Width 22.8 H Platelet Count 128 L Mean Platelet Volume 11.2 H Neutrophils % 65.0 Lymphocytes % 19.0 Monocytes % 13.4 H Eosinophils % 1.3 Basophils % 0.5 Nucleated Red Blood Cells % 0.0 Neutrophils # 2.4 Lymphocytes # 0.7 L Monocytes # 0.5 Eosinophils # 0.1 Basophils # 0.0 Nucleated Red Blood Cells # 0.0 Prothrombin Time 16.8 H Prothrombin Time Ratio 1.3 INR International Normalized Ratio 1.36 Activated Partial Thromboplast Time 35.5 H Sodium Level 137 Potassium Level 3.4 L Chloride Level 105 Carbon Dioxide Level 25 Anion Gap 10 Blood Urea Nitrogen 8 Creatinine 0.59 L Glucose Level 94 Calcium Level 7.3 L Phosphorus Level 1.4 L Magnesium Level 1.9 Thyroid Stimulating Hormone (TSH) 2.770 Medications Medications Current Medications Potassium Chloride/Dextrose/ Sod Cl (D5-1/2ns + KCl 20 Meq) 1,000 ml @ 100 mls/ hr Q10H IV Last administered on 10/31/16 12:37; Admin Dose 100 MLS/HR; Start 10/30/16 at 01:34 Ondansetron HCl (Zofran Inj) 4 mg Q6H PRN IV NAUSEA AND/OR VOMITING; Start at 02:00 Morphine Sulfate (morphine) 2 mg Q4H PRN IV SEVERE PAIN LEVEL 7-10; Start 10/30 at 02:00 Bisacodyl (Dulcolax Supp) 10 mg DAILY PRN [place] CONSTIPATION; Start 10/30/16 at 02 :00 Famotidine (Pepcid Iv) 20 mg Q12 IV Last administered on 10/31/16 08:43; Admin Dose 20 MG; Start 10/30/16 at 09:00 Carvedilol 3.125 mg 3.125 mg BID PO ; Start 10/31/16 at 12:00 Potassium Phosphate/Sodium Chloride (K Phos (Mm)/NS) 260 ml @ 65 mls/hr ONCE IVPB Last administered on 10/31/16t 12:37; Admin Dose 65 MLS/HR; Start at 13:00; Stop 10/31/16 at 16:59 CHAU DAVILA Oct 31, 2016 13:07
[2016-10-31] MEDS: PANTOPRAZOLE 40 MG INJ IV SCH (17:19)
[2016-10-31] MEDS ORDERED: CEFAZOLIN 1 GM INJ ONE (18:00)
[2016-10-31] MEDS ORDERED: PROPOFOL 20 ML ONE (18:06)
[2016-10-31] MEDS ORDERED: FENTAnyl 50 MCG/ML VIAL ONE (18:07)
[2016-10-31] MEDS ORDERED: MIDAZOLAM 1 MG/ML 2 ML INJ ONE (18:07)
[2016-11-01] MEDS: D5W-0.45 NACL + KCL 20 MEQ 1,000 ML IV SCH ×2 (03:34→05:11)
[2016-11-01] MEDS: PANTOPRAZOLE 40 MG INJ IV SCH ×2 (05:11→19:05)
[2016-11-01 06:04] LABS: ADD SCAN DIFF NO
[2016-11-01 06:24] LABS: ABNORMAL IP MESSAGE 1; BASOPHILS % 0.6 % (0.0-2.0); EOSINOPHILS % 0.8 % (0.0-7.0); HEMATOCRIT 27.2 % (42.0-52.0); HEMOGLOBIN 8.5 g/dl (14.0-18.0); LYMPHOCYTES # 0.7 10^3/ul (0.8-2.9); LYMPHOCYTES % 18.7 % (15.0-51.0); MEAN CORPUSCULAR HEMOGLOBIN 30.9 pg (29.0-33.0); MEAN CORPUSCULAR HGB CONC 31.3 g/dl (32.0-37.0); MEAN CORPUSCULAR VOLUME 98.9 fl (82.0-101.0); MEAN PLATELET VOLUME 11.1 fl (7.4-10.4); MONOCYTE # 0.6 10^3/ul (0.3-0.9); MONOCYTES % 15.2 % (0.0-11.0); NEUTROPHIL # 2.3 10^3/ul (1.6-7.5); NEUTROPHILS % 64.1 % (39.0-77.0); PLATELET COUNT 109 10^3/UL (140-415); RED BLOOD COUNT 2.75 10^6/ul (4.70-6.10); RED CELL DISTRIBUTION WIDTH 22.8 % (11.5-14.5); WHITE BLOOD COUNT 3.6 10^3/ul (4.8-10.8)
--- NOTE | 2016-11-01 06:28 | GILP ---
DATE OF PROCEDURE: NAME OF PROCEDURE: Esophagogastroduodenoscopy with percutaneous endoscopic gastrostomy tube placeme nt. SURGEON: Dharmesh Rowell MD PREOPERATIVE DIAGNOSIS(ES) POSTOPERATIVE DIAGNOSIS(ES) BRIEF HISTORY AND INDICATIONS: The patient is receiving gastrostomy tube due to failure to thrive. INSTRUMENT USED: Olympus panendoscope. PREMEDICATION: Monitored anesthesia care by anesthesiologist. TECHNIQUE: After informed consent, with the patient and/or family members understanding the procedur e, its indications, potential risks and complications, including but not limited to: allergic reacti on, bleeding, perforation, infection or leakage, and after all pertinent questions were answered to the patient and/or family members satisfaction, the patient and/or family member signed witnessed in formed consent. Following this, premedication was administered slowly IV push, under careful cardiovascular and resp iratory monitoring with pulse oximetry, blood pressure and residential monitor. Once the sedative effect was achieved the patient was place in the supine position, the panendoscope was introduced and advanced under visual guidance. Careful examination of the upper gastrointestinal tract, on insertion as well as withdrawal of the i nstrument disclosed the following findings: ESOPHAGUS: The distal esophagus shows severe erythema, edema, and erosion of the mucosa, somewhat i mproved in comparison to previous examination, but still quite significant. STOMACH: Upon entrance to the stomach air was insufflated, the gastric kelly distended normally. Th e mucosa of the fundus, body and antrum of the stomach was carefully examined both head-on and on re troflexion, and shows no abnormalities. There is no evidence of gastritis, ulcers or neoplasm. PYLORUS: The pylorus appears patent and within normal limits, with no evidence of gastric outlet ob struction. DUODENUM: The duodenal mucosa was carefully examined in the duodenal bulb as well as the second por tion of the duodenum and appears unremarkable with no evidence of duodenitis, ulcer or neoplasm. The instrument was then brought back to the stomach and the anterior wall mid-body was identified by transillumination and "finger indentation", this area was then marked in the anterior wall of the a bdomen, it was cleansed with Betadine and infiltrated with Xylocaine 1%. Following this a trocar nee dle was introduced into the gastric lumen under visual control with the endoscope, once in the gastr ic lumen a guide wire was advanced and secured with a polypectomy snare, at this point the endoscope was withdrawn bringing the guide wire out through the patients mouth. Following this a gastrostomy tube was introduced over the guide wire, with the Sacks-Vinne technique without difficulty, a small incision was performed in the skin to allow easy passage of the G-tube, once the position of the gas trostomy tube was confirmed, the external stopper and connectors were installed, and a clean dressin g applied. The patient tolerated the procedure well and was transferred out of the endoscopy suite awake, and i n good condition to continue recovery under observation, feedings will started in the next 12-24 ann rs and gastrostomy care will be instituted. IMPRESSION: 1. Severe erosive esophagitis. 2. Post-uneventful percutaneous endoscopic gastrostomy tube and placement of Malawian 20 gastrostomy tube. PLAN: The patient will be continued on present regimen. Feedings will start tomorrow morning. Fur ther recommendation will depend on the patient's clinical course. Dictated By: DHARMESH GOOD Conf#: [id number] DID#: [id number]
[2016-11-01 07:08] VITALS: BP 92/50; RESP 18
[2016-11-01 07:09] LABS: POTASSIUM 3.8 mmol/L (3.5-5.1)
[2016-11-01 07:12] LABS: CREATININE 0.51 mg/dl (0.61-1.24); MAGNESIUM 1.7 mg/dl (1.7-2.5); PHOSPHORUS 1.8 mg/dl (2.5-4.9)
[2016-11-01 07:13] LABS: CALCIUM 7.2 mg/dl (8.4-10.2)
--- NOTE | 2016-11-01 11:34 | PN ---
Date/Time of Note Date/Time of Note DATE: 11/01/16 TIME: 11:20 Assessment/Plan VTE Prophylaxis VTE Prophylaxis Intervention: SCD's Lines/Catheters IV [facility] Saline Lock Urinary Cath still in place: No Assessment/Plan Assessment/Plan ASSESSMENT * Dysphagia * S/P EGD and PEG placement * Severe erosive esophagitis. * Post-uneventful percutaneous endoscopic gastrostomy tube and placement of Greenlandic 20 gastrostomy tube. * Anemia hemoglobin 8.5 * History of metastatic colon cancer PLAN * continue tube feeding + ORAL INTAKE * flush 100 cc of free water Q6 * continue ppi Subjective 24 Hr Interval Summary Free Text/Dictation * course reviewed with the nurse * patient seen and examined,spoke with relatives * Tolerating g tube feeding no residuals * PEG site clean dry no bleeding * S/P EGD peg placement * Severe erosive esophagitis. Post-uneventful percutaneous endoscopic gastrostomy tube and placement of Greenlandic 20 gastrostomy tube. * latest hemoglobin 8.5 Exam/Review of Systems Vital Signs Vitals Vital Signs Date Time Temp Pulse Resp B/P Pulse Ox O2 Delivery O2 Flow Rate FiO2 11/01/16 07:08 97.9 91 18 92/50 98 10/31/16 20:01 Nasal Cannula 2.0 Intake and Output 10/31/16 10/31/16 11/01/16 15:00 23:00 07:00 Intake Total 550 ml 710 ml 550 ml Output Total 140 ml Balance 550 ml 570 ml 550 ml Exam Constitutional: alert Psych: nl mood/affect, no complaints Respiratory: clear to auscultation, normal air movement Cardiovascular: nl pulses, regular rate and rhythm Gastrointestinal: bowel sounds, non-tender, other (peg in place.dressing dry no bleeding), soft Results Result Diagram: 11/01/16 0540 11/01/16 0540 Results 24 hrs Laboratory Tests Test 11/01/16 05:40 White Blood Count 3.6 L Red Blood Count 2.75 L Hemoglobin 8.5 L Hematocrit 27.2 L Mean Corpuscular Volume 98.9 Mean Corpuscular Hemoglobin 30.9 Mean Corpuscular Hemoglobin Concent 31.3 L Red Cell Distribution Width 22.8 H Platelet Count 109 L Mean Platelet Volume 11.1 H Neutrophils % 64.1 Lymphocytes % 18.7 Monocytes % 15.2 H Eosinophils % 0.8 Basophils % 0.6 Nucleated Red Blood Cells % 0.0 Neutrophils # 2.3 Lymphocytes # 0.7 L Monocytes # 0.6 Eosinophils # 0.0 Basophils # 0.0 Nucleated Red Blood Cells # 0.0 Sodium Level 135 Potassium Level 3.8 Chloride Level 104 Carbon Dioxide Level 25 Anion Gap 10 Blood Urea Nitrogen 7 Creatinine 0.51 L Glucose Level 96 Calcium Level 7.2 L Phosphorus Level 1.8 L Magnesium Level 1.7 Medications Medications Current Medications Potassium Chloride/Dextrose/ Sod Cl (D5-1/2ns + KCl 20 Meq) 1,000 ml @ 100 mls/ hr Q10H IV Last administered on 11/01/16 05:11; Admin Dose 100 MLS/HR; Start 10/30/16 at 01:34 Ondansetron HCl (Zofran Inj) 4 mg Q6H PRN IV NAUSEA AND/OR VOMITING; Start at 02:00 Morphine Sulfate (morphine) 2 mg Q4H PRN IV SEVERE PAIN LEVEL 7-10; Start 10/30 at 02:00 Bisacodyl (Dulcolax Supp) 10 mg DAILY PRN IN CONSTIPATION; Start 10/30/16 at 02 :00 Carvedilol (Coreg) 3.125 mg BID PO ; Start 10/31/16 at 12:00 Pantoprazole (Protonix Iv) 40 mg BID@06,18 IV Last administered on 11/01/16 05 :11; Admin Dose 40 MG; Start 10/31/16 at 18:00 DHARMESH VELEZ MD Nov 01, 2016 11:30
--- NOTE | 2016-11-01 13:08 | PN ---
Date/Time of Note Date/Time of Note DATE: 11/01/16 TIME: 13:03 Assessment/Plan VTE Prophylaxis VTE Prophylaxis Intervention: SCD's Lines/Catheters IV [facility]ter Type (from [facility]): Saline Lock Urinary Cath still in place: No Assessment/Plan Assessment/Plan 71-year-old man with: 1. Sore throat, dysphagia, and severe dehydration after no PO intake for greater than 48-hours. Findings of severe erosive esophagitis Patient odynophagia and painful dysphagia due to esophagitis and ulcers S/p EGD with PEG tube placement, tolerating tube this AM with free H2O, no fletcher CT head and CT neck negative for acute findings Continue PPI bid D/c IVF 2. Metastatic colon cancer, without obvious relation to the swallowing problem , under active treatment with Xeloda. Follow up with outpatient Oncology, hold Xeloda Agree with holding off Fentanyl patch Patient a little lethargic today 3. Coronary artery disease, status post stent placement. Off Plavix currently , because of previous bleeding. Troponin negative. Continue current meds 4. Dehydration, weakness, unsteady gait: d/c IVF and PT eval today. 5. Hyperlipidemia: resume crestor after Peg tube place today. Prophylaxis. Sequential compression devices to lower extremities for deep venous thrombosis prevention; PPI for GI prophylaxis. DISPOSITION: s/p EGD/PEG and tolerated tube feeding so far today. Med/Surg. Full -Code. Subjective 24 Hr Interval Summary Free Text/Dictation Patient feels weak Otherwise no complaints Tolerating tube feedings with free water Exam/Review of Systems Vital Signs Vitals Vital Signs Date Time Temp Pulse Resp B/P Pulse Ox O2 Delivery O2 Flow Rate FiO2 11/01/16 07:08 97.9 91 18 92/50 98 10/31/16 20:01 Nasal Cannula 2.0 Intake and Output 10/31/16 10/31/16 11/01/16 15:00 23:00 07:00 Intake Total 550 ml 710 ml 550 ml Output Total 140 ml Balance 550 ml 570 ml 550 ml Exam Constitutional: alert, frail, oriented Respiratory: clear to auscultation, normal air movement Cardiovascular: nl pulses, regular rate and rhythm Gastrointestinal: non-tender, soft Musculoskeletal: nl extremities to inspection Extremities: normal pulses, other (no edema, clubbing or cyanosis ) Neurological: NETWORK MGR II-XII intact, lethargic, nl mental status, other ( generalised weakness ) Results Result Diagram: 11/01/16 0540 11/01/16 0540 Results 24 hrs Laboratory Tests Test 11/01/16 05:40 White Blood Count 3.6 L Red Blood Count 2.75 L Hemoglobin 8.5 L Hematocrit 27.2 L Mean Corpuscular Volume 98.9 Mean Corpuscular Hemoglobin 30.9 Mean Corpuscular Hemoglobin Concent 31.3 L Red Cell Distribution Width 22.8 H Platelet Count 109 L Mean Platelet Volume 11.1 H Neutrophils % 64.1 Lymphocytes % 18.7 Monocytes % 15.2 H Eosinophils % 0.8 Basophils % 0.6 Nucleated Red Blood Cells % 0.0 Neutrophils # 2.3 Lymphocytes # 0.7 L Monocytes # 0.6 Eosinophils # 0.0 Basophils # 0.0 Nucleated Red Blood Cells # 0.0 Sodium Level 135 Potassium Level 3.8 Chloride Level 104 Carbon Dioxide Level 25 Anion Gap 10 Blood Urea Nitrogen 7 Creatinine 0.51 L Glucose Level 96 Calcium Level 7.2 L Phosphorus Level 1.8 L Magnesium Level 1.7 Medications Medications Current Medications Potassium Chloride/Dextrose/ Sod Cl (D5-1/2ns + KCl 20 Meq) 1,000 ml @ 100 mls/ hr Q10H IV Last administered on 11/01/16 05:11; Admin Dose 100 MLS/HR; Start 10/30/16 at 01:34 Ondansetron HCl (Zofran Inj) 4 mg Q6H PRN IV NAUSEA AND/OR VOMITING; Start at 02:00 Morphine Sulfate (morphine) 2 mg Q4H PRN IV SEVERE PAIN LEVEL 7-10; Start 10/30 at 02:00 Bisacodyl (Dulcolax Supp) 10 mg DAILY PRN [place] CONSTIPATION; Start 10/30/16 at 02 :00 Carvedilol (Coreg) 3.125 mg BID PO ; Start 10/31/16 at 12:00 Pantoprazole (Protonix Iv) 40 mg BID@06,18 IV Last administered on 11/01/16 05 :11; Admin Dose 40 MG; Start 10/31/16 at 18:00 Procedures Procedures DATE OF PROCEDURE: NAME OF PROCEDURE: Esophagogastroduodenoscopy with percutaneous endoscopic gastrostomy tube placement. SURGEON: Kervin Rowell MD PREOPERATIVE DIAGNOSIS(ES) POSTOPERATIVE DIAGNOSIS(ES) BRIEF HISTORY AND INDICATIONS: The patient is receiving gastrostomy tube due to failure to thrive. INSTRUMENT USED: Olympus panendoscope. PREMEDICATION: Monitored anesthesia care by anesthesiologist. TECHNIQUE: After informed consent, with the patient and/or family members understanding the procedure, its indications, potential risks and complications , including but not limited to: allergic reaction, bleeding, perforation, infection or leakage, and after all pertinent questions were answered to the patient and/or family members satisfaction, the patient and/or family member signed witnessed informed consent. Following this, premedication was administered slowly IV push, under careful cardiovascular and respiratory monitoring with pulse oximetry, blood pressure and student accounts coordinator. Once the sedative effect was achieved the patient was place in the supine position, the panendoscope was introduced and advanced under visual guidance. Careful examination of the upper gastrointestinal tract, on insertion as well as withdrawal of the instrument disclosed the following findings: ESOPHAGUS: The distal esophagus shows severe erythema, edema, and erosion of the mucosa, somewhat improved in comparison to previous examination, but still quite significant. STOMACH: Upon entrance to the stomach air was insufflated, the gastric kelly distended normally. The mucosa of the fundus, body and antrum of the stomach was carefully examined both head-on and on retroflexion, and shows no abnormalities. There is no evidence of gastritis, ulcers or neoplasm. PYLORUS: The pylorus appears patent and within normal limits, with no evidence of gastric outlet obstruction. DUODENUM: The duodenal mucosa was carefully examined in the duodenal bulb as well as the second portion of the duodenum and appears unremarkable with no evidence of duodenitis, ulcer or neoplasm. The instrument was then brought back to the stomach and the anterior wall mid- body was identified by transillumination and "finger indentation", this area was then marked in the anterior wall of the abdomen, it was cleansed with Betadine and infiltrated with Xylocaine 1%. Following this a trocar needle was introduced into the gastric lumen under visual control with the endoscope, once in the gastric lumen a guide wire was advanced and secured with a polypectomy snare, at this point the endoscope was withdrawn bringing the guide wire out through the patients mouth. Following this a gastrostomy tube was introduced over the guide wire, with the Jonny-Shelbie technique without difficulty, a small incision was performed in the skin to allow easy passage of the G-tube, once the position of the gastrostomy tube was confirmed, the external stopper and connectors were installed, and a clean dressing applied. The patient tolerated the procedure well and was transferred out of the endoscopy suite awake, and in good condition to continue recovery under observation, feedings will started in the next 12-24 hours and gastrostomy care will be instituted. IMPRESSION: 1. Severe erosive esophagitis. 2. Post-uneventful percutaneous endoscopic gastrostomy tube and placement of Lebanese 20 gastrostomy tube. PLAN: The patient will be continued on present regimen. Feedings will start tomorrow morning. Further recommendation will depend on the patient's clinical course. Dictated By: CHAU MANSFIELD Nov 01, 2016 13:08
[2016-11-01] MEDS ORDERED: MAGNESIUM SULFATE 2 GM/50 ML 50 ML IVPB ONE (14:30)
[2016-11-01] MEDS ORDERED: POTASSIUM PHOSPHATE 30 MM in SOD CHLORIDE 0.9% 250 ML IVPB ONE (16:30)
[2016-11-01 19:39] VITALS: BP 95/52; RESP 18
[2016-11-02] MEDS: PANTOPRAZOLE 40 MG INJ IV SCH ×2 (05:39→18:00)
[2016-11-02 07:49] VITALS: BP 100/57; RESP 18
[2016-11-02 08:07] LABS: POTASSIUM 4.5 mmol/L (3.5-5.1)
[2016-11-02 08:09] LABS: CREATININE 0.58 mg/dl (0.61-1.24)
[2016-11-02 08:09] LABS: MAGNESIUM 2.1 mg/dl (1.7-2.5); PHOSPHORUS 1.8 mg/dl (2.5-4.9)
[2016-11-02 08:10] LABS: CALCIUM 7.6 mg/dl (8.4-10.2)
--- NOTE | 2016-11-02 10:32 | PDOCDIS ---
Discharge Instructions CONDITION Patient Condition: Stable HOME CARE INSTRUCTIONS: Diet Instructions: RegularSpecial Diet: ISOSOURCE ACTIVITY: Activity Restrictions: Slowly Increase Activity FOLLOW UP/APPOINTMENTS Appointments Follow up with PCP within 1 week Follow up with Oncology within 1 week Follow up with Home Health PT and Rn OTHER ORDERS: Other Orders: PATIENT DISCHARGE HOME WITH TUBE FEEDING. CONTINUE CURRENT TUBE FEEDING RX OF ISOSOURCE HN @ 50 ML/HR CONTNUOUS FEEDING TO PROVIDE 1440 DELBERT/ 65 GM. PROT/ 980 ML FREE WATER. IF TOLERATED MAY INCREASE RATE TO 60 ML/HR TO PROVIDE 1728 DELBERT/78 GM. PROT/ 1178 ML. FREE WATER. CHAU DAVILA Nov 02, 2016 10:32
--- NOTE | 2016-11-02 10:48 | PN ---
Date/Time of Note Date/Time of Note DATE: 11/02/16 TIME: 10:44 Assessment/Plan VTE Prophylaxis VTE Prophylaxis Intervention: SCD's Lines/Catheters IV Catheter Type (from Nrs): Saline Lock Urinary Cath still in place: No Assessment/Plan Assessment/Plan ASSESSMENT * Dysphagia * S/P EGD and PEG placement * Severe erosive esophagitis. * Post-uneventful percutaneous endoscopic gastrostomy tube and placement of Maori 20 gastrostomy tube. * Anemia hemoglobin 8.5 * History of metastatic colon cancer PLAN * continue tube feeding + ORAL INTAKE Subjective 24 Hr Interval Summary Free Text/Dictation * course reviewed with nurse * patient seen and examined * tolerating tube feeding * less odynophagia * trial of pureed diet Exam/Review of Systems Vital Signs Vitals Vital Signs Date Time Temp Pulse Resp B/P Pulse Ox O2 Delivery O2 Flow Rate FiO2 11/02/16 07:49 98.1 87 18 100/57 93 10/31/16 20:01 Nasal Cannula 2.0 Intake and Output 11/01/16 11/01/16 11/02/16 15:00 23:00 07:00 Intake Total 850 ml 50 ml 1060 ml Balance 850 ml 50 ml 1060 ml Exam Constitutional: alert, frail Neck: supple Respiratory: clear to auscultation, normal air movement, No crackles/rales Cardiovascular: nl pulses, regular rate and rhythm Gastrointestinal: non-tender, other (g tube in place ,dressing dry and intact) , soft Results Result Diagram: 11/01/16 0540 11/02/16 0722 Results 24 hrs Laboratory Tests Test 11/02/16 07:20 11/02/16 07:22 Phosphorus Level 1.8 L Magnesium Level 2.1 Sodium Level 138 Potassium Level 4.5 Chloride Level 103 Carbon Dioxide Level 27 Anion Gap 13 Blood Urea Nitrogen 10 Creatinine 0.58 L Glucose Level 134 Calcium Level 7.6 L Medications Medications Current Medications Ondansetron HCl (Zofran Inj) 4 mg Q6H PRN IV NAUSEA AND/OR VOMITING; Start at 02:00 Morphine Sulfate (morphine) 2 mg Q4H PRN IV SEVERE PAIN LEVEL 7-10; Start 10/30 at 02:00 Bisacodyl (Dulcolax Supp) 10 mg DAILY PRN DC CONSTIPATION; Start 10/30/16 at 02 :00 Carvedilol (Coreg) 3.125 mg BID PO ; Start 10/31/16 at 12:00 Pantoprazole (Protonix Iv) 40 mg BID@,18 IV Last administered on 11/02/16t 05 :39; Admin Dose 40 MG; Start 10/31/16 at 18:00 DHARMESH VELEZ MD Nov 02, 2016 10:48
--- NOTE | 2016-11-02 13:45 | PN ---
Date/Time of Note Date/Time of Note DATE: 11/02/16 TIME: 13:34 Assessment/Plan VTE Prophylaxis VTE Prophylaxis Intervention: SCD's Lines/Catheters IV [facility]ter Type (from [facility] Saline Lock Urinary Cath still in place: No Assessment/Plan Assessment/Plan 71-year-old man with: 1. Sore throat, dysphagia, and severe dehydration after no PO intake for greater than 48-hours. Findings of severe erosive esophagitis resolved symptoms as of now Patient odynophagia and painful dysphagia due to esophagitis and ulcers S/p EGD with PEG tube placement, Tolerating tube feeding well, no fletcher CT head and CT neck negative for acute findings Continue PPI bid 2. Metastatic colon cancer, without obvious relation to the swallowing problem , under active treatment with Xeloda. Follow up with outpatient Oncology, hold Xeloda Agree with holding off Fentanyl patch Patient a little lethargic today 3. Coronary artery disease, status post stent placement. Off Plavix currently , because of previous bleeding. Troponin negative. Continue current meds 4. Dehydration, weakness, unsteady gait: PT eval pending. Home Health PT 5. Hyperlipidemia: resume crestor 6. Protein calorie Malnutrition and generalized weakness: S/p PEG and on tube feedings D/c home with tube feedings and hospital bed Patient needs to keep head of bed elevated more then 30 degrees to prevent shortness of breath and aspiration secondary to dysphagia. Patient also needs repositioning of the body every 2 hours to prevent bedsores. Prophylaxis. Sequential compression devices to lower extremities for deep venous thrombosis prevention; PPI for GI prophylaxis. DISPOSITION: s/p EGD/PEG and tolerated tube feeding. D/c home with HHPT and HHRN and tube feedings and Hospital bed. Subjective 24 Hr Interval Summary Free Text/Dictation Patient doing well and on some puree diet No complaints today Wants to go home Home Health RN and PT and also tube feeding for Home Exam/Review of Systems Vital Signs Vitals Vital Signs Date Time Temp Pulse Resp B/P Pulse Ox O2 Delivery O2 Flow Rate FiO2 11/02/16 11:55 Nasal Cannula 2.0 11/02/16 07:49 98.1 87 18 100/57 93 Intake and Output 11/01/16 11/01/16 11/02/16 15:00 23:00 07:00 Intake Total 850 ml 50 ml 1060 ml Balance 850 ml 50 ml 1060 ml Exam Constitutional: alert, frail, oriented Respiratory: clear to auscultation, normal air movement Cardiovascular: nl pulses, regular rate and rhythm Gastrointestinal: non-tender, soft Musculoskeletal: nl extremities to inspection Extremities: normal pulses, other (no edema, clubbing or cyanosis ) Neurological: MANAGER ENERGY II-XII intact, nl mental status, nl speech, other ( generalised weakness improving ) Results Result Diagram: 11/01/16 0540 11/02/16 0722 Results 24 hrs Laboratory Tests Test 11/02/16 07:20 11/02/16 07:22 Phosphorus Level 1.8 L Magnesium Level 2.1 Sodium Level 138 Potassium Level 4.5 Chloride Level 103 Carbon Dioxide Level 27 Anion Gap 13 Blood Urea Nitrogen 10 Creatinine 0.58 L Glucose Level 134 Calcium Level 7.6 L Medications Medications Current Medications Ondansetron HCl (Zofran Inj) 4 mg Q6H PRN IV NAUSEA AND/OR VOMITING; Start at 02:00 Morphine Sulfate (morphine) 2 mg Q4H PRN IV SEVERE PAIN LEVEL 7-10; Start 10/30 at 02:00 Bisacodyl (Dulcolax Supp) 10 mg DAILY PRN [place] CONSTIPATION; Start 10/30/16 at 02 :00 Carvedilol (Coreg) 3.125 mg BID PO ; Start 10/31/16 at 12:00 Pantoprazole (Protonix Iv) 40 mg BID@06,18 IV Last administered on 11/02/16t 05 :39; Admin Dose 40 MG; Start 10/31/16 at 18:00 CHAU DAVILA Nov 02, 2016 13:44
== END 2016-11-02 18:30 | disposition home health service (06) | DRG 381 ==
LOC: E/R 20:04 → MS2 10-30 01:26
PROVIDERS: ADMIT Internal Medicine; ATTEND Internal Medicine
PROC: 0DH63UZ Insertion of Feeding Device into Stomach, Percutaneous Approach (ICD-10-PCS; principal; 2016-10-31 19:00)
DX: K22.10 Ulcer of esophagus without bleeding (principal); E46 Unspecified protein-calorie malnutrition; C79.51 Secondary malignant neoplasm of bone; C78.7 Secondary malignant neoplasm of liver and intrahepatic bile duct; E86.0 Dehydration; R13.19 Other dysphagia; C18.9 Malignant neoplasm of colon, unspecified; E78.5 Hyperlipidemia, unspecified; Z68.26 Body mass index [BMI] 26.0-26.9, adult; Z87.891 Personal history of nicotine dependence; M54.2 Cervicalgia
CPT/HCPCS: 70450; 70470; 70491; 71010; 74176; 76705; 80048; 81001; 81003; 82140; 83605; 83735; 84100; 84443; 84484; 85025; 85610; 85730; 87040; 87086; 92526; 92610; C9113; J0690; J1650; J2250; J3010; J3475; J3480; J7030; J7050; P9612; Q9967

== ENCOUNTER 2016-11-24 12:47 | Inpatient (IN) | payer MEDICARE, OTHER ==
[2016-11-24] VITALS (17 sets, daily range): BP systolic 79–89; BP diastolic 51–63; PULSE 83–93; RESP 16–24; TEMP 98.3; Ht 188 cm; Wt 90.1 kg
[~2016-11-24] VITALS: Ht 188 cm; Wt 90.1 kg
[~2016-11-24 12:47] MED LIST changes: -FLUC100T PO
[2016-11-24] MEDS ORDERED: OCTREOTIDE 50 MCG in SOD CHLORIDE 0.9% 25 ML IVPB STA (12:51)
[2016-11-24] MEDS ORDERED: SOD CHLORIDE 0.9% 1,000 ML IV STA (12:51)
[2016-11-24] MEDS ORDERED: PANTOPRAZOLE 40 MG INJ IV STA (12:51)
[2016-11-24] MEDS ORDERED: OCTREOTIDE 500 MCG in SOD CHLORIDE 0.9% 49 ML IV STA (12:51)
[2016-11-24] MEDS ORDERED: ASPI-664 PO (13:18)
[2016-11-24] MEDS ORDERED: CLOP75TA27 PO (13:18)
[2016-11-24] MEDS ORDERED: FURO40TA4 PO (13:19)
[2016-11-24] MEDS ORDERED: TAMS0.4C2 PO (13:20)
[2016-11-24] MEDS ORDERED: POTA8CAP PO (13:20)
[2016-11-24] MEDS ORDERED: RAMI2.5C36 PO (13:20)
[2016-11-24] MEDS ORDERED: METF500T4 PO (13:21)
[2016-11-24] MEDS ORDERED: ZOLP10TA5 PO (13:22)
--- NOTE | 2016-11-24 13:49 | RADRPT ---
PROCEDURE: XR Chest. CLINICAL INDICATION: Possible Upper GI Bleed TECHNIQUE: Single frontal view of the chest was obtained. COMPARISON: Chest x-ray from 10/29/2016 FINDINGS: A right-sided Port-A-Cath is again noted with its tip at the superior cavoatrial junction. The heart and mediastinum are within normal limits. There are low lung volumes without focal infiltrates. There is no significant pleural effusion or pneumothorax. There is decreased osseous mineralization. IMPRESSION: Low lung volumes without focal infiltrates or effusions. Right-sided Port-A-Cath. Decreased osseous mineralization. RPTAT: EE Physician Bobby Date Time Electronically viewed and signed by Nhan Sheikh Physician on 11/24/2016 13:48 RA/
[2016-11-24] MEDS ORDERED: ONDANSETRON 4 MG INJ IV STA (13:51)
[2016-11-24 14:19] LABS: ADD SCAN DIFF NO
[2016-11-24] MEDS ORDERED: CEFTRIAXONE 1 GM/50 ML (PMX) 50 ML IVPB ONE (14:30)
[2016-11-24 14:36] LABS: INR 1.84; PROTIME 21.4 Sec (12.2-14.2); PT RATIO 1.7
[2016-11-24 14:37] LABS: ALBUMIN 1.7 g/dl (3.3-4.9)
[2016-11-24 14:38] LABS: CHLORIDE 104 mmol/L (97-110); POTASSIUM 3.4 mmol/L (3.5-5.1); SODIUM 139 mmol/L (135-144)
[2016-11-24 14:40] LABS: ALBUMIN/GLOBULIN RATIO 0.65; ALKALINE PHOSPHATASE 1345 IU/L (42-121); ANION GAP 14 (8-16); ASPARTATE AMINO TRANSFERASE 120 IU/L (15-46); BILIRUBIN,INDIRECT 0.6 mg/dl (0-1.1); BILIRUBIN,TOTAL 1.2 mg/dl (0.2-1.3); CARBON DIOXIDE 24 mmol/L (21-31); CREATININE 0.69 mg/dl (0.61-1.24); TOTAL PROTEIN 4.3 g/dl (6.1-8.1)
[2016-11-24 14:41] LABS: ALANINE AMINOTRANSFERASE 45 IU/L (13-69); BLOOD UREA NITROGEN 27 mg/dl (7-20); CALCIUM 6.9 mg/dl (8.4-10.2); GLUCOSE 76 mg/dl (70-220)
[2016-11-24 14:52] LABS: RED BLOOD COUNT 1.42 10^6/ul (4.70-6.10)
[2016-11-24 14:56] LABS: HEMATOCRIT 14.8 % (42.0-52.0); MEAN CORPUSCULAR VOLUME 184.2 fl (82.0-101.0)
[2016-11-24 14:57] LABS: MEAN CORPUSCULAR HGB CONC 29.7 g/dl (32.0-37.0); MEAN PLATELET VOLUME 11.3 fl (7.4-10.4); PLATELET COUNT 207 10^3/UL (140-440); RED CELL DISTRIBUTION WIDTH 20.3 % (11.5-14.5)
[2016-11-24 15:00] LABS: TROPONIN-I < 0.012 ng/ml (0.00-0.12)
[2016-11-24] MEDS ORDERED: SOD CHLORIDE 0.9% 1,000 ML IV ONE ×2 (15:00)
--- NOTE | 2016-11-24 15:08 | ERA ---
ER Documentation Chief Complaint Date/Time DATE: 11/24/16 TIME: 15:03 Chief Complaint HPI 71-year-old man brought in by EMS from home for blood per rectum. Symptoms began today and is been feeling weak dizzy and has been hypotensive. He is status post chemotherapy 3 cycles recently for colon cancer with metastasis to the liver. He has severe dysphagia and has had a recent upper endoscopy which revealed a necrotic bleeding ulcer to the esophagus, he has dysphasia and a gastrostomy tube in place. Family who was at the bedside states a few weeks ago he was treated with antibiotics, and he has not been eating anything for a few days. He has had no fevers or chills, no vomiting, no complaints of chest pain or shortness of breath. HPI supplemented by reviewing past medical history , speaking to family members, speaking to EMS, and nurses. ROS All systems reviewed and are negative except as per history of present illness. Medications Home Meds Reported Medications Zolpidem Tartrate* (Zolpidem Tartrate*) 10 Mg Tablet, 10 MG PO QHS Y for INSOMNIA, #30 TAB 11/24/16 Metformin Hcl* (Metformin Hcl*) 500 Mg Tablet, 500 MG PO WITH BREAKFAST, #30 TAB 11/24/16 Ramipril (Ramipril) 2.5 Mg Capsule, 2.5 MG PO DAILY, CAP 11/24/16 Tamsulosin Hcl* (Tamsulosin Hcl*) 0.4 Mg Cap.er.24h, 0.4 MG PO HS, CAP 11/24/16 Potassium Chloride* (Potassium Chloride*) 8 Meq Capsule.er, 8 MEQ PO DAILY, CAP 11/24/16 Furosemide* (Furosemide*) 40 Mg Tablet, 40 MG PO DAILY, TAB 11/24/16 Aspirin (Low Dose Aspirin) 81 Mg Tablet.dr, 81 MG PO DAILY, #30 TAB 11/24/16 Clopidogrel Bisulfate (Clopidogrel) 75 Mg Tablet, 75 MG PO DAILY, #30 TAB 11/24/16 Carvedilol* (Carvedilol*) 3.125 Mg Tablet, 3.125 MG PO BID, #60 TAB 08/26/16 Rosuvastatin Calcium* (Crestor*) 20 Mg Tablet, 20 MG PO QHS, #30 TAB 08/26/16 Discontinued Scripts Pantoprazole* (Protonix*) 40 Mg Tablet.dr, 40 MG PO BID for 30 Days, TAB 3 Refills Prov:CHAU DAVILA 10/23/16 Sucralfate* (Carafate*) 1 Gm/10 Ml Susp, 1 GM PO QID for 30 Days, 3 Refills Prov:CHAU DAVILA 10/23/16 Allergies Allergies: Coded Allergies: No Known Drug Allergy (Verified Allergy, Mild, 11/24/16) PMhx/Soc Metastatic colon cancer with metastases to the liver, acute esophagitis with a recent biopsy which revealed esophageal necrotic ulcer, dysphagia with PEG tube placement, anemia, status post chemotherapy, coronary artery disease with stents , hypertension History of Surgery: Yes (ANGIOPLASTY X3, 7 STENTS ) Anesthesia Reaction: No Hx Neurological Disorder: No Hx Respiratory Disorders: Yes (SOB) Hx Cardiac Disorders: Yes ([place], HTN, ) Hx Psychiatric Problems: No Hx Alcohol Use: No Hx Substance Use: No Hx Tobacco Use: No FmHx Family History: diabetes Physical Exam Vitals Vital Signs Date Time Temp Pulse Resp B/P Pulse Ox O2 Delivery O2 Flow Rate FiO2 11/24/16 13:10 Nasal Cannula 2 11/24/16 13:10 98.2 115 24 80/63 98 Physical Exam GENERAL: Elderly, chronically debilitated man, afebrile HEENT: Dry mucous membranes, pale conjunctival, no cervical spine deformity, no goiter, no jaundice or icterus NEURO: Alert and oriented 2, eyes closed, able to answer simple questions and follow simple commands, pupils equal round reactive to light, no focal deficits or facial asymmetry CARDIAC: Tachycardic and regular, no murmurs rubs or gallops LUNGS: Clear bilaterally no wheezing crackles or stridor ABDOMEN: Soft nontender, no guarding, no rigidity, no rebound, no psoas sign no obturator sign. Normoactive bowel sounds SKIN: Warm and dry to touch, no abrasions, contusions, or hematomas, no lacerations, no ecchymosis, no target lesions, and without ulcers EXTREMITIES: No clubbing cyanosis or edema, calves are bilaterally symmetrical, no Homans sign, no popliteal cord sign. Distal pulses equal and bilateral PSYCH: Unable to assess Result Diagram: 11/24/16 1350 11/24/16 1350 Results 24 hrs Laboratory Tests Test 11/24/16 13:50 White Blood Count 7.810^3/ul Red Blood Count 1.4210^6/ul Hemoglobin 4.4g/dl Hematocrit 14.8% Mean Corpuscular Volume 184.2fl Mean Corpuscular Hemoglobin 31.0pg Mean Corpuscular Hemoglobin Concent 29.7g/dl Red Cell Distribution Width 20.3% Platelet Count 74957^3/UL Mean Platelet Volume 11.3fl Prothrombin Time 21.4Sec Prothrombin Time Ratio 1.7 INR International Normalized Ratio 1.84 Activated Partial Thromboplast Time 31.0Sec Sodium Level 139mmol/L Potassium Level 3.4mmol/L Chloride Level 104mmol/L Carbon Dioxide Level 24mmol/L Anion Gap 14 Blood Urea Nitrogen 27mg/dl Creatinine 0.69mg/dl Glucose Level 76mg/dl Calcium Level 6.9mg/dl Total Bilirubin 1.2mg/dl Direct Bilirubin 0.60mg/dl Indirect Bilirubin 0.6mg/dl Aspartate Amino Transf (AST/SGOT) 120IU/L Alanine Aminotransferase (ALT/SGPT) 45IU/L Alkaline Phosphatase 1345IU/L Troponin I < 0.012ng/ml Total Protein 4.3g/dl Albumin 1.7g/dl Globulin 2.60g/dl Albumin/Globulin Ratio 0.65 Lipase 31U/L Current Medications Medications (Trade) Dose Ordered Sig/Jose M Route PRN Reason Start Time Stop Time Status Last Admin Dose Admin Sodium Chloride (NS) 1,000 ml @ 2,000 mls/hr Q30M STAT IV 11/24/16 12:51 11/24/16 13:20 DC 11/24/16 13:36 Pantoprazole 40 mg 40 mg ONCE STAT IV 11/24/16 12:51 11/24/16 12:53 DC 11/24/16 13:45 Octreotide Acetate 50 mcg/ Sodium Chloride 26 ml @ 100 mls/hr Q16M STAT IVPB 11/24/16 12:51 11/24/16 13:06 DC 11/24/16 13:45 Octreotide Acetate/Sodium Chloride (Sandostatin/NS) 50 ml @ 5 mls/hr ONCE STAT IV 11/24/16 12:51 11/24/16 22:50 11/24/16 13:45 Ondansetron HCl 4 mg 4 mg ONCE STAT IV 11/24/16 13:51 11/24/16 13:52 DC 11/24/16 14:19 Ceftriaxone Sodium 50 ml @ 100 mls/hr ONCE ONCE IVPB 11/24/16 14:30 11/24/16 14:59 DC 11/24/16 14:34 Sodium Chloride 1,000 ml @ 1,000 mls/hr Q1H ONCE IV 11/24/16 15:00 11/24/16 15:59 DC 11/24/16 15:13 Sodium Chloride (NS) 1,000 ml @ 1,000 mls/hr Q1H ONCE IV 11/24/16 15:00 11/24/16 15:59 DC 11/24/16 15:13 Magnesium Citrate (Citroma) 300 ml ONCE ONCE GTB 11/24/16 17:30 11/24/16 17:31 DC Polyethylene Glycol (Miralax) 119 gm ONCE ONCE GTB 11/24/16 18:30 11/24/16 18:31 Polyethylene Glycol (Miralax) 119 gm 2ND DOSE (GI PREP) ONCE GTB 11/25/16 06:00 11/25/16 06:01 Bisacodyl (Dulcolax) 10 mg 2ND DOSE (GI PREP) ONCE PO 11/25/16 08:00 11/25/16 08:01 Ondansetron HCl (Zofran Inj) 4 mg Q6H PRN IV NAUSEA AND/OR VOMITING 11/24/16 17:00 Acetaminophen (Tylenol Liquid) 650 mg Q6H PRN PO PAIN LEVEL 1-3 OR FEVER 11/24/16 17:00 Acetaminophen (Tylenol Supp) 650 mg Q4H PRN MS PAIN LEVEL 1-3 OR FEVER 11/24/16 17:00 Morphine Sulfate (morphine) 2 mg Q4H PRN IV PAIN LEVEL 7-10 11/24/16 17:00 Pantoprazole 40 mg 40 mg BID IV 11/24/16 21:00 Norepinephrine 250 ml @ 1.875 mls/ hr PER PROTOCOL IV 11/24/16 17:00 Potassium Chloride/Dextrose/ Sod Cl (D5-NS + KCl 20 Meq) 1,000 ml @ 100 mls/hr Q10H IV 11/24/16 17:00 Insulin Aspart (Novolog Insulin Pen) NOVOLOG *MILD* ALGORI... Q4 SC 11/24/16 17:00 Miscellaneous Information (* Miscellaneous Pharmacy Order) HYPOGLYCEMIA PROTOCOL w... ONCE ONCE XX 11/24/16 17:00 11/24/16 17:17 DC Miscellaneous Information (* Miscellaneous Pharmacy Order) Discontinue Glyburide, Glipizide,... ONCE ONCE XX 11/24/16 17:00 11/24/16 17:17 DC Miscellaneous Information (* Miscellaneous Pharmacy Order) Discontinue all previ... ONCE ONCE XX 11/24/16 17:00 11/24/16 17:17 DC Phytonadione 10 mg 10 mg ONCE ONCE SC 11/24/16 17:30 11/24/16 17:31 DC Sodium Chloride 250 ml @ 0 mls/hr Q0M ONCE IV* 11/24/16 17:09 11/24/16 17:16 DC Sodium Chloride (NS) 250 ml @ 0 mls/hr Q0M ONCE IV* 11/24/16 17:11 11/24/16 17:16 DC Miscellaneous Information 1 ea NOTE XX 11/24/16 17:30 Glucose (Glutose) 15 gm Q15M PRN PO DECREASED GLUCOSE 11/24/16 17:30 Glucose (Glutose) 22.5 gm Q15M PRN PO DECREASED GLUCOSE 11/24/16 17:30 Dextrose (D50w Syringe) 25 ml Q15M PRN IV DECREASED GLUCOSE 11/24/16 17:30 Dextrose (D50w Syringe) 50 ml Q15M PRN IV DECREASED GLUCOSE 11/24/16 17:30 Glucagon (Glucagen) 1 mg Q15M PRN IM DECREASED GLUCOSE 11/24/16 17:30 Glucose (Glutose) 15 gm Q15M PRN BUCCAL DECREASED GLUCOSE 11/24/16 17:30 Procedures/MDM 2 large bore IV lines were established and patient was started off with 2 L normal saline intravenously for hypotension. Patient was afebrile. Murray catheter was placed. For blood pressure support I administered a total of 4 L normal saline intravenously. I also administered octreotide 50 g IV bolus followed by an octreotide drip. Patient also received Zofran 4 mg IV, Protonix 40 mg IV, and ceftriaxone 1 g IV EKG performed, read by me revealed a sinus tachycardia at 119 bpm, normal axis, narrow QRS complex, no concerning ST elevations or depressions noted. One view chest x-ray performed, read by me there are no acute infiltrates, no pneumothorax, and mediastinum looks unremarkable, there is no soft tissue or mediastinal air tracking, there is a central line in the right subclavian vein which is in normal position. CBC revealed severe anemia with a hematocrit of 15, electrolytes revealed dehydration with a BUN/creatinine of 27/0.7 and hypokalemia 3.4, liver function tests were unremarkable but alkaline phosphatase was elevated over 1000, troponin was negative. I ordered transfusion 2 units PRBCs IV over 2 hours for severe anemia and active lower gastrointestinal bleeding. Gastrostomy tube was irrigated and then was no blood return. Immediate GI consultation was obtained with Dr. Rowell, who I spoke to, he agreed to perform colonoscopy in the a.m. with possible upper endoscopy as well. Critical Care: Time: 45 minutes, this was time separate from other procedures. Treatments/Evaluations: Close monitoring and treatment of unstable vital signs, cardiorespiratory, and neurologic status, while maintaining tight balance of fluid, respiratory, and cardiac interventions. Patient will be admitted to the intensive care unit for continued medical management, transfusion, and GI consultation. Departure Diagnosis: Primary Impression: Metastatic colon cancer to liver Additional Impressions: Acute esophagitis Anemia Qualified Code: D64.9 - Anemia, unspecified type Hypotension Qualified Code: I95.9 - Hypotension, unspecified hypotension type Lower GI bleed Ruled Out: Hematochezia Condition: Critical GEOVANNA AMOS MD Nov 24, 2016 15:08
--- NOTE | 2016-11-24 16:48 | CONS ---
Date/Time of Note Date/Time of Note DATE: 11/24/16 TIME: 16:24 Assessment/Plan Assessment/Plan Additional Assessment/Plan Assessment * Anemia * GI bleed * lower gi vs upper gi bleed * hematochezia * Metastatic colon ca Stage SHAI with liver metastasis * S/P EGD/PEG placement * erosive esophagitis * CAD * S/P Chemotherapy * Plan * correct anemia * EGD/colonoscopy tomorrow risks and benefit explained to patient and , agreed with the planned procedure * monitor Hand H q 8 and transfuse as ordered Consultation Date/Type/Reason Admit Date/Time Date of Consultation: Nov 24, 2016 Type of Consultation: Gastroenterology Reason for Consultation Hematochezia Hx of Present Illness 71 year old male with past medical history of CAD multiple stents placements, metastatic colon ca stage SHAI with metastasis to liver,s/p EGD PEG placement 2016 findings of severe erosive esophagitis brought to emergency room because of hematochezia.Present condition apparently started sediment remediation consultant when patient had episode of hematochezia x3 approximately 150 cc per episode according to the .No associated hematemesis,vomiting nor bleeding noted at gastrostomy tube.He was subsequently rushed to ER where Hemoglobin 4,Hematocrit 14.8 .Chest x ray Low lung volumes without focal infiltrates or effusions. Right-sided Port-A-Cath. Decreased osseous mineralization. Emergency room course awake ,frail patient with no hematochezia during my examination, no hematemesis denies any abdominal pain. Past Medical History Medical History: coronary artery disease, GI bleed, other (colon ca) Past Surgical History Past Surgical Hx: endoscopy, other (stent placement) Social History Alcohol Use: none Smoking Status: Unknown if ever smoked Exam/Review of Systems Vital Signs Vitals Vital Signs Date Time Temp Pulse Resp B/P Pulse Ox O2 Delivery O2 Flow Rate FiO2 11/24/16 13:10 Nasal Cannula 2 11/24/16 13:10 98.2 115 24 80/63 98 Exam Constitutional: frail Head: atraumatic, normocephalic Eyes: PERRL, nl sclera Neck: non-tender, supple Respiratory: clear to auscultation, diminished breath sounds, normal air movement Cardiovascular: nl pulses, regular rate and rhythm Gastrointestinal: bowel sounds, non-tender, other (g tube in placed ,no active bleeding clear liquid noted per g tube), soft Musculoskeletal: nl extremities to inspection Extremities: normal pulses Neurological: nl speech Skin: nl turgor, rash or lesions Lymph: nl lymph nodes Results Result Diagram: 11/24/16 1350 11/24/16 1350 Results 24 hrs Laboratory Tests Test 11/24/16 13:50 White Blood Count 7.8 # Red Blood Count 1.42 #L Hemoglobin 4.4 #*L Hematocrit 14.8 #L Mean Corpuscular Volume 184.2 #H Mean Corpuscular Hemoglobin 31.0 Mean Corpuscular Hemoglobin Concent 29.7 L Red Cell Distribution Width 20.3 H Platelet Count 207 Mean Platelet Volume 11.3 H Prothrombin Time 21.4 #H Prothrombin Time Ratio 1.7 INR International Normalized Ratio 1.84 Activated Partial Thromboplast Time 31.0 Sodium Level 139 Potassium Level 3.4 L Chloride Level 104 Carbon Dioxide Level 24 Anion Gap 14 Blood Urea Nitrogen 27 H Creatinine 0.69 Glucose Level 76 Calcium Level 6.9 L Total Bilirubin 1.2 Direct Bilirubin 0.60 H Indirect Bilirubin 0.6 Aspartate Amino Transf (AST/SGOT) 120 H Alanine Aminotransferase (ALT/SGPT) 45 Alkaline Phosphatase 1345 H Troponin I < 0.012 Total Protein 4.3 L Albumin 1.7 L Globulin 2.60 Albumin/Globulin Ratio 0.65 Lipase 31 DHARMESH VELEZ MD Nov 24, 2016 16:34
[2016-11-24] MEDS: D5-NS + KCL 20 MEQ 1,000 ML IV SCH (17:00)
[2016-11-24] MEDS ORDERED: ONDANSETRON 4 MG INJ IV PRN (17:00)
[2016-11-24] MEDS ORDERED: NORepinephrine 8MG/250 ML (PMX 250 ML IV SCH (17:00)
[2016-11-24] MEDS ORDERED: ACETAMINOPHEN 650MG/20.3ML CUP PO PRN (17:00)
[2016-11-24] MEDS ORDERED: ACETAMINOPHEN 650 MG SUPP PR PRN (17:00)
[2016-11-24] MEDS ORDERED: SOD CHLORIDE 0.9% 250 ML IV* ONE ×2 (17:09→17:11)
[2016-11-24] MEDS ORDERED: PHYTONADIONE 10 MG/ML INJ SC ONE (17:30)
[2016-11-24] MEDS ORDERED: DEXTROSE 50% 50 ML SYRINGE IV PRN ×2 (17:30)
[2016-11-24] MEDS ORDERED: GLUCOSE GEL 15 GRAM TUBE PO PRN ×2 (17:30)
[2016-11-24] MEDS ORDERED: GLUCOSE GEL 15 GRAM TUBE BUCCAL PRN (17:30)
[2016-11-24] MEDS ORDERED: MAGNESIUM CITRATE 300 ML BTL GTB ONE (17:30)
[2016-11-24] MEDS ORDERED: GLUCAGON 1 MG INJ IM PRN (17:30)
[2016-11-24] MEDS ORDERED: POLYETHYLENE GLYCOL 3350 119 GM POWDER GTB ONE (18:30)
[2016-11-24 18:42] LABS: LYMPHOCYTES # 0.5 10^3/ul (0.8-2.9); MONOCYTE # 0.3 10^3/ul (0.3-0.9); NEUTROPHIL # 6.3 10^3/ul (1.6-7.5)
[2016-11-24 18:45] LABS: HYPOCHROMASIA OCCASIONAL; PLATELET ESTIMATE PLT APPEAR ADEQUATE
[2016-11-24] MEDS: INSULIN ASPART [NOVOLOG] 3 ML PEN SC SCH ×2 (19:00→21:00)
--- NOTE | 2016-11-24 19:43 | HP ---
DATE OF ADMISSION: 11/24/2016 PRIMARY CARE PHYSICIAN: Dr. He Simons PRIMARY ONCOLOGIST: Dr. Dany Villalta PREVIOUS STOCK CHECKER: Here at [facility], Dr. Rowell CHIEF COMPLAINT ON ADMISSION: Blood per rectum. HISTORY OF PRESENT ILLNESS: This is a 71-year-old male with known metastatic colon cancer stage SHAI with metastasis to the liver and also possibly bone metastases who also has coronary artery disease , hyperlipidemia and now has been off chemotherapy, was unable to tolerate it so far. He used to be on Xeloda, which was discontinued. Presented to the emergency department, brought in due to multip le episodes of rectal bleeding. The who is at the bedside is giving most of the history. The patient himself is lethargic, pale and somnolent. According to the , the patient has declined o cara the past few weeks. He was already admitted in the hospital a few weeks ago for G-tube placemen t due to decreased p.o. intake. Since then, he has been fed primarily via G-tube. He is mostly bed bound. Today this morning, he was noted to have an episode of dark blood coming through the rectum with some clots, large amount, approximately 12 ounce according to the patient's . The patient had additional 3 episodes. At that time, the patient's son took his blood pressure, which was low 70s over 50s. Therefore, 911 was called. The patient was taken to the emergency department. In th e emergency department, he was noted to be hypotensive on arrival. He had another episode of blood per rectum. This time it was more of a dark red with clots and approximately 8 ounces according to the ER nurse. The patient's blood pressure was on the low side. He did receive a 4 L bolus of norm al saline, systolic blood pressures remaining in the 90s at that time. He is awake but lethargic, s omnolent. His hemoglobin on arrival was 4.4 and likely lower now that he got 4 L normal saline. He has been typed and crossed to receive 4 units of packed red blood cells, also ordered 2 units of FF P given his INR of 1.8. The rest of his laboratory data is fairly stable. He is noted to have an e levated alkaline phosphatase which is likely from his bone metastases. He is noted not to have any blood coming through the G-tube, which has been flushed and is clear. Therefore, this bleeding may be from the colon or small bowel. I did order a bleeding scan, but at this point the patient is not stable enough to go to any procedures yet until he starts receiving blood transfusion likely. He h as been typed and crossed. The patient's denies any other acute symptoms. No fevers, chills, chest pain, shortness of breath, nausea or vomiting. The melena and rectal bleeding have been noted today, and the patient has been weak throughout and bed bound. He seems to be declining slowly. Dru lynch is not a candidate for any chemotherapy anymore according to the patient's . He is being admi tted to the intensive care unit. Dr. Rowell has been notified, and his nurse practitioner already h as seen the patient with planned EGD and colonoscopy in the next 24 hours. In the meantime, the pat ient needs to have blood given and his coagulopathy corrected. Vitamin K has also been ordered. ALLERGIES: NO KNOWN DRUG ALLERGIES. PAST MEDICAL HISTORY: Includes: 1. Coronary artery disease. The patient is status post multiple stenting in the past. 2. Metastatic colon cancer stage SHAI with metastases to the liver but also apparently has metastase s to the bones. 3. History of tobacco use. 4. Hyperlipidemia. 5. Status post G-tube placement due to severe dysphagia and decreased p.o. intake. 6. Episode of severe esophagitis with ulcerations. 7. Hyperlipidemia. 8. Severe protein calorie malnutrition. PAST SURGICAL HISTORY: 1. Status post multiple cardiac stent placements and multiple angiograms, total of 7 stents [facility]. The latest one was placed 2 years ago. 2. Status post MediPort placement for chemotherapy which was done in 2017. 3. Status post G-tube placement on his last admission. SOCIAL HISTORY: No alcohol use reported. The patient does have a history of smoking. It is unclea r if has been smoking lately as he has been fairly sick. REVIEW OF SYSTEMS: As per HPI. OUTPATIENT MEDICATIONS: 1. Flomax 0.4 mg p.o. at bedtime. 2. Plavix 75 mg p.o. daily. 3. Carvedilol 3.125 mg p.o. b.i.d. 4. Ramipril 2.5 mg p.o. daily. 5. Crestor 20 mg p.o. at bedtime. 6. Aspirin 81 mg daily. 7. Ambien 10 mg p.o. daily. 8. Furosemide 40 mg p.o. daily. 9. Potassium chloride 8 mEq daily. 10. Metformin 500 mg p.o. daily. Of note, the patient has been off all these medications for the past 1 week at least as he has not b een able to tolerate much p.o. PHYSICAL EXAMINATION: VITAL SIGNS: Temperature is 98.2, heart rate currently is in the 115, blood pressure is running ying und 92/50, and he is satting 98% on 2 L nasal cannula. GENERAL: The patient is alert but very lethargic. He is extremely pale and weak. HEENT: Pupils are equally round and reactive to light. Extraocular muscles are intact. He does rubio ve anicteric sclerae but pale sclerae. NECK: No JVD, no thyromegaly noted. HEART: Regular rhythm, tachycardic. LUNGS: Clear to auscultation bilaterally. ABDOMEN: Soft. He does have a G-tube in place. There are no signs of bleeding around the site, an d when flushed, there was no bleed, no bloody return. EXTREMITIES: No clubbing or cyanosis. He does have +2 edema, pedal. GENITOURINARY: Murray catheter has been placed. Urine is yellow. No signs of bleeding. NEUROLOGIC: The patient is extremely weak, not following much commands currently. LABORATORY DATA: White blood cell count 7.8, hemoglobin 4.4, hematocrit 14.8. His MCV is 187, plat elet count is 207. Chemistry with a sodium of 139, potassium 3.4, chloride 104, bicarbonate 24, BUN 27, creatinine 0.69, calcium of 6.9, total bilirubin 1.2, AST 120, ALT 45, alkaline phosphatase 134 5. Troponin is less than 0.012. Albumin 1.7, total protein 4.3, lipase of 31. INR is 1.84, PT 21. 4, PTT 31.0. RADIOLOGICAL DATA: The patient had a chest x-ray which showed right-sided Port-A-Cath, low lung vol ume without focal infiltrate or effusions. He has a nuclear bleeding scan ordered if patient stable enough to have it done. Otherwise, EGD, colonoscopy ordered for the morning. ASSESSMENT AND PLAN: This is a 71-year-old male with: 1. Gastrointestinal bleeding, seems to maybe either from small bowel or colon, at this point it is unclear. Flushing the G-tube did not have any bloody return. The patient will be stabilized in the ICU. He will be getting a total of 4 units of packed red blood cells and 2 units of FFP. Also Vit dunn K has been ordered given his coagulopathy. I have ordered Levophed as needed. He is also lyudmila g to be on IV fluids, but hopefully blood transfusion will replete his volume enough. Dr. Rowell is seeing the patient with planned EGD, colonoscopy in the next 24 hours. 2. Metastatic colon cancer stage SHAI with metastatic disease to the liver and also likely to the vicki ne. Unfortunately, the patient is not a candidate for any chemotherapy according to the family, and Xeloda was also discontinued. At this point, it seems that palliative care and palliation would be the most reasonable route. The family will discuss that option, and they can also discuss it with their oncologist. 3. Severe dysphagia and known esophagitis and esophageal ulcers. The patient to have a repeat EGD tomorrow with further recommendations. For now, he is being fed through G-tube. However, he will r emain n.p.o. given the procedures that need to be done tomorrow. 4. Coronary artery disease, status post multiple stent placements. We do have to discontinue Plavi x and aspirin and for him to stay off of it due to his episodes of bleeding. 5. Dehydration, hypovolemia secondary to gastrointestinal bleed. Continue blood transfusion, both packed red blood cells and FFP. Also continue his IV fluids and monitor his fluid status. Murray ca theter has been placed. 6. Hyperlipidemia. For now will discontinue all statin therapy. 7. Protein calorie malnutrition which is severe in this patient's status. Again, for now will addr ess the GI bleeding, and once the patient is more stable, his tube feeding will be addressed. He do es have a G-tube in place. 8. Prophylaxis. Sequential compression devices to lower extremity for deep venous thrombosis proph ylaxis, and the patient will be placed on Protonix b.i.d. IV also for now. DISPOSITION: Admit to the intensive care unit. Blood product transfusion, GI consult and close mon itoring. The patient is FULL CODE. Dictated By: CHAU MONTIEL/PAOLA Conf#: [id number] DID#: [id number]
[2016-11-24 20:43] LABS: HEMATOCRIT 25.4 % (42.0-52.0); HEMOGLOBIN 7.7 g/dl (14.0-18.0)
[2016-11-24 21:03] LABS: CALCIUM 7.2 mg/dl (8.4-10.2); CREATININE 0.74 mg/dl (0.61-1.24); MAGNESIUM 2.3 mg/dl (1.7-2.5); POTASSIUM 4.3 mmol/L (3.5-5.1)
[2016-11-24] MEDS: PANTOPRAZOLE 40 MG INJ IV SCH (22:11)
[2016-11-25] VITALS (68 sets, daily range): BP systolic 85–114; BP diastolic 42–90; PULSE 74–97; RESP 12–29
[2016-11-25] MEDS: INSULIN ASPART [NOVOLOG] 3 ML PEN SC SCH ×6 (01:00→21:00)
[2016-11-25] MEDS: D5-NS + KCL 20 MEQ 1,000 ML IV SCH ×3 (03:00→21:23)
[2016-11-25 05:24] LABS: ADD SCAN DIFF NO
[2016-11-25 05:33] LABS: BASOPHILS % 0.1 % (0.0-2.0); HEMATOCRIT 27.4 % (42.0-52.0); HEMOGLOBIN 8.6 g/dl (14.0-18.0); LYMPHOCYTES # 0.9 10^3/ul (0.8-2.9); LYMPHOCYTES % 10.5 % (15.0-51.0); MEAN CORPUSCULAR HEMOGLOBIN 30.5 pg (29.0-33.0); MEAN CORPUSCULAR HGB CONC 31.4 g/dl (32.0-37.0); MEAN CORPUSCULAR VOLUME 97.2 fl (82.0-101.0); MONOCYTE # 0.7 10^3/ul (0.3-0.9); MONOCYTES % 8.5 % (0.0-11.0); NEUTROPHIL # 6.8 10^3/ul (1.6-7.5); NEUTROPHILS % 78.5 % (39.0-77.0); NUCLEATED RED BLOOD CELLS # 0.1 10^3/ul (0.0-0.0); NUCLEATED RED BLOOD CELLS% 0.6 /100WBC (0.0-0.0); PLATELET COUNT 185 10^3/UL (140-415); RED BLOOD COUNT 2.82 10^6/ul (4.70-6.10); RED CELL DISTRIBUTION WIDTH 18.1 % (11.5-14.5); WHITE BLOOD COUNT 8.7 10^3/ul (4.8-10.8)
[2016-11-25 05:38] LABS: INR 1.44; PROTIME 17.6 Sec (12.2-14.2); PT RATIO 1.4
[2016-11-25 05:39] LABS: PARTIAL THROMBOPLASTIN TIME 30.2 Sec (25.0-35.0)
[2016-11-25 05:54] LABS: ALBUMIN 2.3 g/dl (3.3-4.9); ALBUMIN/GLOBULIN RATIO 0.74; BILIRUBIN,DIRECT 0.3 mg/dl (0.00-0.20); BILIRUBIN,INDIRECT 0.5 mg/dl (0-1.1); BILIRUBIN,TOTAL 0.8 mg/dl (0.2-1.3); CALCIUM 7.3 mg/dl (8.4-10.2); CREATININE 0.73 mg/dl (0.61-1.24); POTASSIUM 3.8 mmol/L (3.5-5.1); TOTAL PROTEIN 5.4 g/dl (6.1-8.1)
[2016-11-25] MEDS ORDERED: POLYETHYLENE GLYCOL 3350 119 GM POWDER GTB ONE (06:00)
[2016-11-25 06:03] LABS: MAGNESIUM 2.4 mg/dl (1.7-2.5); PHOSPHORUS 3.5 mg/dl (2.5-4.9)
[2016-11-25] MEDS ORDERED: BISACODYL (EC) 5 MG TAB PO ONE (08:00)
[2016-11-25] MEDS: PANTOPRAZOLE 40 MG INJ IV SCH (08:28)
--- NOTE | 2016-11-25 09:56 | PN ---
Date/Time of Note Date/Time of Note DATE: 11/25/16 TIME: 09:36 Assessment/Plan VTE Prophylaxis VTE Prophylaxis Intervention: SCD's Lines/Catheters IV [facility] (from [facility] Peripheral IV Urinary Cath still in place: Yes Reason Cath still needed: other (indicate) (monitor UOP ) Assessment/Plan Assessment/Plan 71-year-old male with: 1. Gastrointestinal bleeding, seems to maybe either from small bowel or colon, at this point it is unclear. Stabilized overnight S/p 4 units pRBC and 2 units of FFP, Hb up to 8.6 which is around 8.6 and INR 1.44 Continue IV fluids, Dr. Rowell with planned EGD, colonoscopy today Bleeding scan pending. 2. 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 Unfortunately, the patient is not a candidate for any chemotherapy according to the family, and Xeloda was also discontinued. At this point, it seems that palliative care would be the most reasonable route. The family will discuss that option, and they can also address with his oncologist. 3. Severe dysphagia and known esophagitis and esophageal ulcers. Repeat EGD today with further recommendations. Still n.p.o. given the procedures that need to be done today. 4. Coronary artery disease, status post multiple stent placements. Off Plavix and aspirin due to episodes of bleeding. 5. Dehydration, hypovolemia secondary to gastrointestinal bleed. Much improved Prn blood transfusion, both packed red blood cells and FFP. Continue his IVF. Strict i/o, Murray catheter in place. 6. Hyperlipidemia. Holding statin for now . 7. Protein calorie malnutrition which is severe in this patient's status. G- tube in place Again, for now will address the GI bleeding, and once the patient is more stable , his tube feeding will be addressed. Prophylaxis. SCDs to lower extremity for deep venous thrombosis prophylaxis, and on Protonix b.i.d. DISPOSITION: ICU care and close monitoring. Blood product transfusion, EGD and Colonoscopy pending, bleeding scan pending FULL CODE. Subjective 24 Hr Interval Summary Free Text/Dictation Patient doing better and hemodynamically stable this AM S/p 4 units of pRBC and 2 units of FFP Exam/Review of Systems Vital Signs Vitals Vital Signs Date Time Temp Pulse Resp B/P Pulse Ox O2 Delivery O2 Flow Rate FiO2 11/25/16 06:45 85 16 94/59 92 11/25/16 04:00 98.9 Room Air 11/25/16 00:07 2.0 Intake and Output 11/24/16 11/24/16 11/25/16 15:00 23:00 07:00 Intake Total 1026 ml 200 ml 2100 ml Output Total 500 ml 880 ml Balance 1026 ml -300 ml 1220 ml Exam Constitutional: alert, frail, oriented, other (lethargic ) Respiratory: clear to auscultation, normal air movement Cardiovascular: nl pulses, regular rate and rhythm Gastrointestinal: non-tender, other (G tube in place with no hematemesis, no bloody output ), soft Musculoskeletal: nl extremities to inspection, nl gait and stance Extremities: normal pulses, other (no edema, clubbing or cyanosis ) Neurological: CADD TECHNICIAN II-XII intact, lethargic, other (much more awake ) Results Result Diagram: 11/25/16 0440 11/25/16 0440 Results 24 hrs Laboratory Tests Test 11/24/16 13:50 11/24/16 19:04 11/24/16 20:40 11/24/16 22:07 White Blood Count 7.8 # Red Blood Count 1.42 #L Hemoglobin 4.4 #*L 7.7 #L Hematocrit 14.8 #L 25.4 #L Mean Corpuscular Volume 184.2 #H Mean Corpuscular Hemoglobin 31.0 Mean Corpuscular Hemoglobin Concent 29.7 L Red Cell Distribution Width 20.3 H Platelet Count 207 Mean Platelet Volume 11.3 H Neutrophils % 81.0 H Band Neutrophils % 6.0 H Lymphocytes % 7.0 L Monocytes % 4.0 Metamyelocytes % 1.0 H Promyelocytes % 1.0 H Neutrophils # 6.3 Lymphocytes # 0.5 L Monocytes # 0.3 Metamyelocytes # 0.1 Promyelocytes # 0.1 Platelet Estimate PLT APPEAR ADEQUATE Hypochromasia OCCASIONAL Macrocytosis OCCASIONAL Prothrombin Time 21.4 #H Prothrombin Time Ratio 1.7 INR International Normalized Ratio 1.84 Activated Partial Thromboplast Time 31.0 Sodium Level 139 137 Potassium Level 3.4 L 4.3 Chloride Level 104 107 Carbon Dioxide Level 24 24 Anion Gap 14 10 Blood Urea Nitrogen 27 H 26 H Creatinine 0.69 0.74 Glucose Level 76 118 # Calcium Level 6.9 L 7.2 L Total Bilirubin 1.2 Direct Bilirubin 0.60 H Indirect Bilirubin 0.6 Aspartate Amino Transf (AST/SGOT) 120 H Alanine Aminotransferase (ALT/SGPT) 45 Alkaline Phosphatase 1345 H Troponin I < 0.012 Total Protein 4.3 L Albumin 1.7 L Globulin 2.60 Albumin/Globulin Ratio 0.65 Lipase 31 Bedside Glucose 106 121 Magnesium Level 2.3 Test 11/25/16 01:29 11/25/16 04:40 11/25/16 05:15 11/25/16 08:37 Bedside Glucose 125 131 135 White Blood Count 8.7 Red Blood Count 2.82 #L Hemoglobin 8.6 L Hematocrit 27.4 L Mean Corpuscular Volume 97.2 # Mean Corpuscular Hemoglobin 30.5 Mean Corpuscular Hemoglobin Concent 31.4 L Red Cell Distribution Width 18.1 H Platelet Count 185 # Mean Platelet Volume 12.0 H Neutrophils % 78.5 H Lymphocytes % 10.5 L Monocytes % 8.5 Eosinophils % 0.0 Basophils % 0.1 Nucleated Red Blood Cells % 0.6 H Neutrophils # 6.8 Lymphocytes # 0.9 Monocytes # 0.7 Eosinophils # 0.0 Basophils # 0.0 Nucleated Red Blood Cells # 0.1 H Prothrombin Time 17.6 H Prothrombin Time Ratio 1.4 INR International Normalized Ratio 1.44 Activated Partial Thromboplast Time 30.2 Sodium Level 139 Potassium Level 3.8 Chloride Level 107 Carbon Dioxide Level 26 Anion Gap 10 Blood Urea Nitrogen 27 H Creatinine 0.73 Glucose Level 128 Calcium Level 7.3 L Phosphorus Level 3.5 Magnesium Level 2.4 Total Bilirubin 0.8 Direct Bilirubin 0.30 #H Indirect Bilirubin 0.5 Aspartate Amino Transf (AST/SGOT) 177 H Alanine Aminotransferase (ALT/SGPT) 57 Alkaline Phosphatase 1238 H Total Protein 5.4 #L Albumin 2.3 L Globulin 3.10 Albumin/Globulin Ratio 0.74 Medications Medications Current Medications Ondansetron HCl (Zofran Inj) 4 mg Q6H PRN IV NAUSEA AND/OR VOMITING; Start at 17:00 Acetaminophen (Tylenol Liquid) 650 mg Q6H PRN PO PAIN LEVEL 1-3 OR FEVER; Start 11/24/16 at 17:00 Acetaminophen (Tylenol Supp) 650 mg Q4H PRN [place] PAIN LEVEL 1-3 OR FEVER; Start 11/24/16 at 17:00 Morphine Sulfate (morphine) 2 mg Q4H PRN IV PAIN LEVEL 7-10; Start 11/24/16 at 17:00 Pantoprazole 40 mg 40 mg BID IV Last administered on 11/25/16 08:28; Admin Dose 40 MG; Start 11/24/16 at 21:00 Potassium Chloride/Dextrose/ Sod Cl (D5-NS + KCl 20 Meq) 1,000 ml @ 100 mls/hr Q10H IV Last administered on 11/25/16 08:29; Admin Dose 100 MLS/HR; Start at 17:00 Insulin Aspart (Novolog Insulin Pen) NOVOLOG *MILD* ALGORI... Q4 SC ; Start at 17:00 Miscellaneous Information 1 ea NOTE XX ; Start 11/24/16 at 17:30 Glucose (Glutose) 15 gm Q15M PRN PO DECREASED GLUCOSE; Start 11/24/16 at 17:30 Glucose (Glutose) 22.5 gm Q15M PRN PO DECREASED GLUCOSE; Start 11/24/16 at 17: 30 Dextrose (D50w Syringe) 25 ml Q15M PRN IV DECREASED GLUCOSE; Start 11/24/16 at 17:30 Dextrose (D50w Syringe) 50 ml Q15M PRN IV DECREASED GLUCOSE; Start 11/24/16 at 17:30 Glucagon (Glucagen) 1 mg Q15M PRN IM DECREASED GLUCOSE; Start 11/24/16 at 17:30 Glucose (Glutose) 15 gm Q15M PRN BUCCAL DECREASED GLUCOSE; Start 11/24/16 at 17 :30 CHAU DAVILA Nov 25, 2016 09:52
[2016-11-25 12:10] LABS: HEMATOCRIT 31.1 % (42.0-52.0); HEMOGLOBIN 9.9 g/dl (14.0-18.0)
[2016-11-25] MEDS ORDERED: PROPOFOL 20 ML ONE (16:19)
[2016-11-25] MEDS ORDERED: FENTAnyl 50 MCG/ML VIAL ONE (16:19)
[2016-11-25] MEDS ORDERED: ETOMIDATE 20 MG INJ ONE (16:19)
--- NOTE | 2016-11-25 18:45 | GILP ---
DATE OF PROCEDURE: PROCEDURE: Esophagogastroduodenoscopy with endoclip placement. PREMEDICATION: Monitored anesthesia care by anesthesiologist. SURGEON: Dharmesh Rowell MD. INSTRUMENT USED: Olympus panendoscope. TECHNIQUE: After informed consent, with the patient/relatives understanding the procedure, its indic ations, potential risks and complications, including but not limited to: allergic reaction, bleeding , perforation or infection, and after all pertinent questions were answered to the patients satisfac tion, the patient/relatives signed witnessed informed consent. Following this, premedication was administered slowly IV push under careful cardiovascular and respi ratory monitoring with pulse oximetry, automatic blood pressure and panel monitor. Once the sedative effect was achieved the patient was place in the left lateral decubitus, the panen doscope was introduced and advanced under visual control. Careful examination of the upper gastrointestinal tract, both on insertion as well as withdrawal of the instrument disclosed the following findings: ESOPHAGUS: The esophagus shows significant erythema, edema and ulceration of the esophagus which co mparing to previous examination is significantly improved. There is minor evidence of bleeding in t he area. STOMACH: Upon entrance to the stomach air was insufflated, the gastric kelly distended normally. A gastrostomy tube was in place, otherwise the gastric mucosa appears unremarkable. PYLORUS: Patent and within normal limits. DUODENUM: Remarkable for the presence of significant amounts of blood mostly in the postbulbar area . Extensive lavage was applied and careful examination disclosed the presence of 3 ulcerations, one of which shows stigmata of recent bleeding. I was able to place an endoclip in the area of recent bleeding with no residual bleeding. The instrument was then withdrawn reexamining the mucosa in detail. No additional abnormalities are noted. IMPRESSION: 1. Ulcerative esophagitis (improved comparing to previous examination). 2. Gastrostomy tube in place. 3. Active postbulbar duodenal ulcerations ranging in size from 8 to 12 mm. One of the ulcers with stigmata of recent bleeding and endoclip applied with no residual bleeding. PLAN: The patient will be continued on octreotide drip, Protonix will be switched to an 8 mcg an ho ur drip, H and H q.6 hours and further recommendation will depend on the patient's clinical course. Dictated By: DHARMESH ROWELL MS/PAOLA Conf#: [id number] [facility]#: [id number]
--- NOTE | 2016-11-25 18:54 | GILP ---
DATE OF PROCEDURE: 11/25/2016 NAME OF PROCEDURE: Colonoscopy SURGEON: Dharmesh Rowell MD. HISTORY AND INDICATIONS: The patient is being evaluated for gastrointestinal bleeding. PREMEDICATION: Monitored anesthesia care by anesthesiologist. INSTRUMENT USED: Olympus colonoscope. TECHNIQUE: After informed consent, with the patient understanding the procedures, potential risks a nd complications as well as alternatives and after informed consent was obtained from the patient's family, the patient was placed in the left lateral decubitus. Premedication was administered. Foll owing this, the digital rectal examination was performed showing small external hemorrhoids. Following this, the Olympus colonoscope was introduced and advanced ____. There are very large amou nts of old blood and clots which preclude adequate examination. Extensive lavage was applied and w e were able to advance the instrument to the transverse colon. Unfortunately, the visualization of the mucosa was severely impaired, and it was judged that proceeding further would be dangerous and p robably ineffective, so the procedure was terminated. The instrument was withdrawn. We examined th e mucosa in detail. No additional abnormalities are noted. IMPRESSION: Suboptimal examination due to extremely poor preparation with large amounts of old blood and clots in the colon. Unable to lavage enough to visualize the mucosa in an effective manner. PLAN: A stat bleeding scan will be requested and further recommendation will depend on the findings as well as the patient's clinical course. Dictated By: DHARMESH ROWELL MS/NTS Conf#: [id number] DID#: [id number] CC: DHARMESH ROWELL;*EndCC*
[2016-11-25 20:18] LABS: HEMATOCRIT 30.3 % (42.0-52.0); HEMOGLOBIN 9.6 g/dl (14.0-18.0)
[2016-11-25] MEDS: PANTOPRAZOLE IV 80 MG in SOD CHLORIDE 0.9% 100 ML IV SCH (20:34)
--- NOTE | 2016-11-25 20:56 | RADRPT ---
AMENDMENT: 11/26/2016 5:30:57 PM Sherlyn Esquivel MD Delayed images of the abdomen were obtained at 4 hours post injection, which do not reveal definite new abnormal areas of increased activity. PROCEDURE: Gastrointestinal bleeding scan CLINICAL INDICATION: 71 year-old patient with blood loss. TECHNIQUE: Following the intravenous injection of 26.3 mCi of Tc-99m labeled red blood cells, mult iple dynamic anterior images of the abdomen were obtained up to 60-minute post injection. COMPARISON: No prior gastrointestinal bleeding scans. FINDINGS: No definite abnormal areas of increased activity are seen in the abdomen and pelvis up to 60 minutes post injection. Physiologic activity is seen in the liver and vessels. IMPRESSION: No definite abnormal areas of increased activity up to 60-minute post injection. Delayed images to follow. RPTAT: QQ .Sherlyn Esquivel MD, Date Time Electronically viewed and signed by .Sherlyn Esquivel MD, on 11/26/2016 17:31 .L/
[2016-11-26] VITALS (36 sets, daily range): BP systolic 86–118; BP diastolic 55–96; PULSE 78–97; RESP 12–31
[2016-11-26] MEDS: INSULIN ASPART [NOVOLOG] 3 ML PEN SC SCH ×6 (01:00→21:00)
[2016-11-26 01:04] LABS: HEMATOCRIT 30.7 % (42.0-52.0); HEMOGLOBIN 9.7 g/dl (14.0-18.0)
[2016-11-26] MEDS: PANTOPRAZOLE IV 80 MG in SOD CHLORIDE 0.9% 100 ML IV SCH ×3 (05:13→22:13)
[2016-11-26 05:24] LABS: ADD SCAN DIFF NO
[2016-11-26 05:36] LABS: BASOPHILS % 0.2 % (0.0-2.0); EOSINOPHILS % 0.4 % (0.0-7.0); HEMATOCRIT 30.7 % (42.0-52.0); HEMOGLOBIN 9.8 g/dl (14.0-18.0); LYMPHOCYTES # 0.6 10^3/ul (0.8-2.9); MEAN CORPUSCULAR HEMOGLOBIN 31.3 pg (29.0-33.0); MEAN CORPUSCULAR HGB CONC 31.9 g/dl (32.0-37.0); MEAN CORPUSCULAR VOLUME 98.1 fl (82.0-101.0); MEAN PLATELET VOLUME 11.5 fl (7.4-10.4); MONOCYTE # 0.7 10^3/ul (0.3-0.9); MONOCYTES % 8.1 % (0.0-11.0); NEUTROPHIL # 7.3 10^3/ul (1.6-7.5); NEUTROPHILS % 80.3 % (39.0-77.0); NUCLEATED RED BLOOD CELLS # 0.1 10^3/ul (0.0-0.0); NUCLEATED RED BLOOD CELLS% 0.9 /100WBC (0.0-0.0); PLATELET COUNT 164 10^3/UL (140-415); RED BLOOD COUNT 3.13 10^6/ul (4.70-6.10); RED CELL DISTRIBUTION WIDTH 18.6 % (11.5-14.5); WHITE BLOOD COUNT 9.1 10^3/ul (4.8-10.8)
[2016-11-26 05:45] LABS: INR 1.32; PARTIAL THROMBOPLASTIN TIME 28.1 Sec (25.0-35.0); PROTIME 16.5 Sec (12.2-14.2); PT RATIO 1.3
[2016-11-26 05:49] LABS: MAGNESIUM 2.4 mg/dl (1.7-2.5); PHOSPHORUS 1.8 mg/dl (2.5-4.9)
[2016-11-26 05:55] LABS: POTASSIUM 3.1 mmol/L (3.5-5.1)
[2016-11-26 05:57] LABS: ALBUMIN/GLOBULIN RATIO 0.71; BILIRUBIN,DIRECT 0.4 mg/dl (0.00-0.20); BILIRUBIN,INDIRECT 0.6 mg/dl (0-1.1); CREATININE 0.63 mg/dl (0.61-1.24); TOTAL PROTEIN 4.8 g/dl (6.1-8.1)
[2016-11-26 05:58] LABS: CALCIUM 7.3 mg/dl (8.4-10.2)
[2016-11-26] MEDS ORDERED: POTASSIUM CHLORIDE 250 ML IVPB ONE (09:30)
[2016-11-26] MEDS ORDERED: MAGNESIUM SULFATE 2 GM/50 ML 50 ML IVPB ONE (09:30)
--- NOTE | 2016-11-26 09:48 | PN ---
Date/Time of Note Date/Time of Note DATE: 11/26/16 TIME: 09:31 Assessment/Plan VTE Prophylaxis VTE Prophylaxis Intervention: SCD's Lines/Catheters IV [facility] portacath Urinary Cath still in place: Yes Reason Cath still needed: other (indicate) (monitor UOP ) Assessment/Plan Assessment/Plan 71-year-old male with: 1. Gastrointestinal bleeding, UGIB from duodenal ulcers s/p clipping of some S/p 4 units pRBC and 2 units of FFP, Hb up to 9.5 to 9.7 INR 1.35 Continue IV fluids, Appreciate Dr. Rowell assistance, continue PPI and I will patient on clears as tolerated Bleeding scan negative . 2. 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 Unfortunately, the patient is not a candidate for any chemotherapy according to the family, and Xeloda was also discontinued. At this point, it seems that palliative care would be the most reasonable route. The family will discuss that option, and they can also address with his oncologist. 3. Severe dysphagia and known esophagitis and esophageal ulcers. Esophagitis improved on repeat EGD yesterday but had duodenal ulcers with stigmata of recent bleeding Continue PPI and clears today 4. Coronary artery disease, status post multiple stent placements. Off Plavix and aspirin due to episodes of bleeding. 5. Dehydration, hypovolemia secondary to gastrointestinal bleed. Much improved PRN blood transfusion, both packed red blood cells and FFP. Continue IVF. Strict i/o, Murray catheter in place. 6. Hyperlipidemia. Holding statin for now . 7. Protein calorie malnutrition which is severe in this patient's status. G- tube in place Resume Tube feeding when Ok with GI, clear today 8. Hypokalemia/Hypophosphatemia: replete today Prophylaxis. SCDs to lower extremity for deep venous thrombosis prophylaxis, and on Protonix b.i.d. DISPOSITION: Transfer to telemetry after electrolytes repletion FULL CODE. Subjective 24 Hr Interval Summary Free Text/Dictation Patient remains stable Nuc med scan negative EGD with bleeding duodenal ulcers s/p clipping Exam/Review of Systems Vital Signs Vitals Vital Signs Date Time Temp Pulse Resp B/P Pulse Ox O2 Delivery O2 Flow Rate FiO2 11/26/16 09:00 16 93/61 99 Nasal Cannula 4.0 11/26/16 08:00 97.7 11/26/16 04:00 78 Intake and Output 11/25/16 11/25/16 11/26/16 15:00 23:00 07:00 Intake Total 650 ml 630 ml 770 ml Output Total 370 ml 390 ml 305 ml Balance 280 ml 240 ml 465 ml Exam Constitutional: alert, frail, oriented (x2) Respiratory: clear to auscultation, normal air movement Cardiovascular: nl pulses, regular rate and rhythm Gastrointestinal: non-tender, other (G tube in place ), soft Musculoskeletal: nl extremities to inspection Extremities: normal pulses, other (no edema, clubbing or cyanosis ) Neurological: ADMINISTRATIVE COORDINATOR II-XII intact, confused (slighlty ), lethargic Results Result Diagram: 11/26/16 0415 11/26/16 0415 Results 24 hrs Laboratory Tests Test 11/25/16 11:30 11/25/16 12:30 11/25/16 17:35 11/25/16 20:10 Hemoglobin 9.9 L 9.6 L Hematocrit 31.1 L 30.3 L Bedside Glucose 137 130 Test 11/25/16 21:21 11/26/16 00:55 11/26/16 01:21 11/26/16 04:15 Bedside Glucose 124 126 Hemoglobin 9.7 L 9.8 L Hematocrit 30.7 L 30.7 L White Blood Count 9.1 Red Blood Count 3.13 L Mean Corpuscular Volume 98.1 Mean Corpuscular Hemoglobin 31.3 Mean Corpuscular Hemoglobin Concent 31.9 L Red Cell Distribution Width 18.6 H Platelet Count 164 Mean Platelet Volume 11.5 H Neutrophils % 80.3 H Lymphocytes % 7.0 L Monocytes % 8.1 Eosinophils % 0.4 Basophils % 0.2 Nucleated Red Blood Cells % 0.9 H Neutrophils # 7.3 Lymphocytes # 0.6 L Monocytes # 0.7 Eosinophils # 0.0 Basophils # 0.0 Nucleated Red Blood Cells # 0.1 H Prothrombin Time 16.5 H Prothrombin Time Ratio 1.3 INR International Normalized Ratio 1.32 Activated Partial Thromboplast Time 28.1 Sodium Level 146 H Potassium Level 3.1 L Chloride Level 111 H Carbon Dioxide Level 27 Anion Gap 11 Blood Urea Nitrogen 24 H Creatinine 0.63 Glucose Level 129 Calcium Level 7.3 L Total Bilirubin 1.0 Direct Bilirubin 0.40 H Indirect Bilirubin 0.6 Aspartate Amino Transf (AST/SGOT) 155 H Alanine Aminotransferase (ALT/SGPT) 55 Alkaline Phosphatase 994 H Total Protein 4.8 L Albumin 2.0 L Globulin 2.80 Albumin/Globulin Ratio 0.71 Test 11/26/16 04:45 11/26/16 05:16 Phosphorus Level 1.8 #L Magnesium Level 2.4 Bedside Glucose 134 Medications Medications Current Medications Ondansetron HCl (Zofran Inj) 4 mg Q6H PRN IV NAUSEA AND/OR VOMITING; Start at 17:00 Acetaminophen (Tylenol Liquid) 650 mg Q6H PRN PO PAIN LEVEL 1-3 OR FEVER; Start 11/24/16 at 17:00 Acetaminophen (Tylenol Supp) 650 mg Q4H PRN [place] PAIN LEVEL 1-3 OR FEVER; Start 11/24/16 at 17:00 Morphine Sulfate 2 mg 2 mg Q4H PRN IV PAIN LEVEL 7-10; Start 11/24/16 at 17:00 Potassium Chloride/Dextrose/ Sod Cl (D5-NS + KCl 20 Meq) 1,000 ml @ 100 mls/hr Q10H IV Last administered on 11/25/16t 21:23; Admin Dose 100 MLS/HR; Start at 17:00 Insulin Aspart (Novolog Insulin Pen) NOVOLOG *MILD* ALGORI... Q4 SC ; Start at 17:00 Miscellaneous Information 1 ea NOTE XX ; Start 11/24/16 at 17:30 Glucose (Glutose) 15 gm Q15M PRN PO DECREASED GLUCOSE; Start 11/24/16 at 17:30 Glucose (Glutose) 22.5 gm Q15M PRN PO DECREASED GLUCOSE; Start 11/24/16 at 17: 30 Dextrose (D50w Syringe) 25 ml Q15M PRN IV DECREASED GLUCOSE; Start 11/24/16 at 17:30 Dextrose (D50w Syringe) 50 ml Q15M PRN IV DECREASED GLUCOSE; Start 11/24/16 at 17:30 Glucagon (Glucagen) 1 mg Q15M PRN IM DECREASED GLUCOSE; Start 11/24/16 at 17:30 Glucose 15 gm 15 gm Q15M PRN BUCCAL DECREASED GLUCOSE; Start 11/24/16 at 17:30 Pantoprazole 80 mg/Sodium Chloride 100 ml @ 10 mls/hr Q10H IV Last administered on 11/26/16t 05:13; Admin Dose 10 MLS/HR; Start 11/25/16 at 17:00 Potassium Chloride 250 ml @ 62.5 mls/hr ONCE ONCE IVPB ; Start 11/26/16 at 09: 30; Stop 11/26/16 at 13:29; Status UNV Magnesium Sulfate (Magnesium Sulfate 2 Gm/50 ml) 50 ml @ 25 mls/hr ONCE ONCE IVPB ; Start 11/26/16 at 09:30; Stop 11/26/16 at 11:29; Status UNV CHAU DAVILA Nov 26, 2016 09:42
[2016-11-26] MEDS ORDERED: POTASSIUM PHOSPHATE 30 MM in SOD CHLORIDE 0.9% 250 ML IVPB ONE (10:30)
[2016-11-26] MEDS: D5W-0.45 NACL + KCL 40 MEQ 1,000 ML IV SCH ×2 (11:04→22:13)
--- NOTE | 2016-11-26 12:26 | PN ---
Date/Time of Note Date/Time of Note DATE: 11/26/16 TIME: 12:12 Assessment/Plan VTE Prophylaxis VTE Prophylaxis Intervention: SCD's Lines/Catheters IV [facility] portacath Urinary Cath still in place: Yes Reason Cath still needed: other (indicate) Assessment/Plan Assessment/Plan Assessment: Anemia/GI bleed/hematochezia * Colonoscopy 11/25/16: * Suboptimal examination due to extremely poor preparation with large amounts of old blood and clots in the colon. * EGD 11/25/2016 * Ulcerative esophagitis (improved comparing to previous examination). * Gastrostomy tube in place. * Active postbulbar duodenal ulcerations ranging in size from 8 to 12 mm. * One of the ulcers with stigmata of recent bleeding and endoclip applied with no residual bleeding. * Bleeding scan 11/25/2016 * Negative Metastatic colon ca Stage SHAI with liver metastasis * S/P Chemotherapy/currently on hold S/P EGD/PEG placement h/o ulcerative esophagitis CAD Plan: * Continue present regimen * Monitor H/H transfuse PRN * Advance diet as tolerated Subjective 24 Hr Interval Summary Free Text/Dictation Course reviewed with nursing staff Comfortable, denies pain H/H stable, bleeding scan negative Diet started Exam/Review of Systems Vital Signs Vitals Vital Signs Date Time Temp Pulse Resp B/P Pulse Ox O2 Delivery O2 Flow Rate FiO2 11/26/16 11:30 23 114/59 97 Nasal Cannula 11/26/16 10:00 3.0 11/26/16 08:00 97.7 11/26/16 08:00 90 Intake and Output 11/25/16 11/25/16 11/26/16 15:00 23:00 07:00 Intake Total 650 ml 630 ml 770 ml Output Total 370 ml 390 ml 305 ml Balance 280 ml 240 ml 465 ml Exam Constitutional: frail Head: atraumatic, normocephalic Eyes: PERRL, nl sclera Neck: non-tender, supple Respiratory: clear to auscultation, diminished breath sounds, normal air movement Cardiovascular: nl pulses, regular rate and rhythm Gastrointestinal: bowel sounds, non-tender, other (g tube in placed ,no active bleeding clear liquid noted per g tube), soft Musculoskeletal: nl extremities to inspection Extremities: normal pulses Neurological: nl speech Skin: nl turgor, rash or lesions Lymph: nl lymph nodes Results Result Diagram: 11/26/16 0415 11/26/16 0415 Results 24 hrs Laboratory Tests Test 11/25/16 12:30 11/25/16 17:35 11/25/16 20:10 11/25/16 21:21 Bedside Glucose 137 130 124 Hemoglobin 9.6 L Hematocrit 30.3 L Test 11/26/16 00:55 11/26/16 01:21 11/26/16 04:15 11/26/16 04:45 Hemoglobin 9.7 L 9.8 L Hematocrit 30.7 L 30.7 L Bedside Glucose 126 White Blood Count 9.1 Red Blood Count 3.13 L Mean Corpuscular Volume 98.1 Mean Corpuscular Hemoglobin 31.3 Mean Corpuscular Hemoglobin Concent 31.9 L Red Cell Distribution Width 18.6 H Platelet Count 164 Mean Platelet Volume 11.5 H Neutrophils % 80.3 H Lymphocytes % 7.0 L Monocytes % 8.1 Eosinophils % 0.4 Basophils % 0.2 Nucleated Red Blood Cells % 0.9 H Neutrophils # 7.3 Lymphocytes # 0.6 L Monocytes # 0.7 Eosinophils # 0.0 Basophils # 0.0 Nucleated Red Blood Cells # 0.1 H Prothrombin Time 16.5 H Prothrombin Time Ratio 1.3 INR International Normalized Ratio 1.32 Activated Partial Thromboplast Time 28.1 Sodium Level 146 H Potassium Level 3.1 L Chloride Level 111 H Carbon Dioxide Level 27 Anion Gap 11 Blood Urea Nitrogen 24 H Creatinine 0.63 Glucose Level 129 Calcium Level 7.3 L Total Bilirubin 1.0 Direct Bilirubin 0.40 H Indirect Bilirubin 0.6 Aspartate Amino Transf (AST/SGOT) 155 H Alanine Aminotransferase (ALT/SGPT) 55 Alkaline Phosphatase 994 H Total Protein 4.8 L Albumin 2.0 L Globulin 2.80 Albumin/Globulin Ratio 0.71 Phosphorus Level 1.8 #L Magnesium Level 2.4 Test 11/26/16 05:16 Bedside Glucose 134 Medications Medications Current Medications Ondansetron HCl (Zofran Inj) 4 mg Q6H PRN IV NAUSEA AND/OR VOMITING; Start at 17:00 Acetaminophen (Tylenol Liquid) 650 mg Q6H PRN PO PAIN LEVEL 1-3 OR FEVER; Start 11/24/16 at 17:00 Acetaminophen (Tylenol Supp) 650 mg Q4H PRN [place] PAIN LEVEL 1-3 OR FEVER; Start 11/24/16 at 17:00 Morphine Sulfate (morphine) 2 mg Q4H PRN IV PAIN LEVEL 7-10; Start 11/24/16 at 17:00 Insulin Aspart (Novolog Insulin Pen) NOVOLOG *MILD* ALGORI... Q4 SC ; Start at 17:00 Miscellaneous Information 1 ea NOTE XX ; Start 11/24/16 at 17:30 Glucose (Glutose) 15 gm Q15M PRN PO DECREASED GLUCOSE; Start 11/24/16 at 17:30 Glucose (Glutose) 22.5 gm Q15M PRN PO DECREASED GLUCOSE; Start 11/24/16 at 17: 30 Dextrose (D50w Syringe) 25 ml Q15M PRN IV DECREASED GLUCOSE; Start 11/24/16 at 17:30 Dextrose (D50w Syringe) 50 ml Q15M PRN IV DECREASED GLUCOSE; Start 11/24/16 at 17:30 Glucagon (Glucagen) 1 mg Q15M PRN IM DECREASED GLUCOSE; Start 11/24/16 at 17:30 Glucose 15 gm 15 gm Q15M PRN BUCCAL DECREASED GLUCOSE; Start 11/24/16 at 17:30 Pantoprazole 80 mg/Sodium Chloride 100 ml @ 10 mls/hr Q10H IV Last administered on 11/26/16 05:13; Admin Dose 10 MLS/HR; Start 11/25/16 at 17:00 Potassium Chloride 250 ml @ 62.5 mls/hr ONCE ONCE IVPB Last administered on 11:02; Admin Dose 62.5 MLS/HR; Start 11/26/16 at 09:30; Stop 11/26/16 at 13:29 Potassium Chloride/Dextrose/ Sod Cl 1,000 ml @ 100 mls/hr Q10H IV Last administered on 11/26/16 11:04; Admin Dose 100 MLS/HR; Start 11/26/16 at 09:30 Potassium Phosphate/Sodium Chloride (K Phos (Mm)/NS) 260 ml @ 65 mls/hr ONCE ONCE IVPB Last administered on 11/26/16 11:03; Admin Dose 65 MLS/HR; Start at 10:30; Stop 11/26/16 at 14:29 DHARMESH VELEZ MD Nov 26, 2016 12:23
[2016-11-26 13:09] LABS: HEMATOCRIT 31.2 % (42.0-52.0)
[2016-11-26] MEDS: morphine 2 MG INJ IV PRN (22:50)
[2016-11-27] VITALS (12 sets, daily range): BP systolic 99–112; BP diastolic 58–64; PULSE 83–90; RESP 18
[2016-11-27] MEDS: INSULIN ASPART [NOVOLOG] 3 ML PEN SC SCH ×6 (00:55→20:48)
[2016-11-27] MEDS: D5W-0.45 NACL + KCL 40 MEQ 1,000 ML IV SCH ×4 (05:30→23:48)
[2016-11-27 06:41] LABS: ADD SCAN DIFF NO
[2016-11-27 06:54] LABS: BASOPHILS % 0.2 % (0.0-2.0); EOSINOPHILS % 0.2 % (0.0-7.0); HEMATOCRIT 31.4 % (42.0-52.0); HEMOGLOBIN 9.7 g/dl (14.0-18.0); LYMPHOCYTES # 0.8 10^3/ul (0.8-2.9); LYMPHOCYTES % 7.5 % (15.0-51.0); MEAN CORPUSCULAR HGB CONC 30.9 g/dl (32.0-37.0); MEAN CORPUSCULAR VOLUME 100.3 fl (82.0-101.0); MEAN PLATELET VOLUME 11.3 fl (7.4-10.4); MONOCYTE # 0.9 10^3/ul (0.3-0.9); MONOCYTES % 9.1 % (0.0-11.0); NEUTROPHIL # 8.2 10^3/ul (1.6-7.5); NEUTROPHILS % 80.3 % (39.0-77.0); NUCLEATED RED BLOOD CELLS # 0.1 10^3/ul (0.0-0.0); NUCLEATED RED BLOOD CELLS% 0.7 /100WBC (0.0-0.0); PLATELET COUNT 144 10^3/UL (140-415); RED BLOOD COUNT 3.13 10^6/ul (4.70-6.10); RED CELL DISTRIBUTION WIDTH 19.6 % (11.5-14.5); WHITE BLOOD COUNT 10.2 10^3/ul (4.8-10.8)
[2016-11-27 07:06] LABS: MAGNESIUM 2.3 mg/dl (1.7-2.5); PHOSPHORUS 2.1 mg/dl (2.5-4.9)
[2016-11-27 07:09] LABS: CALCIUM 7.5 mg/dl (8.4-10.2); CREATININE 0.65 mg/dl (0.61-1.24); POTASSIUM 4.4 mmol/L (3.5-5.1)
[2016-11-27] MEDS: PANTOPRAZOLE IV 80 MG in SOD CHLORIDE 0.9% 100 ML IV SCH ×2 (08:09→18:02)
--- NOTE | 2016-11-27 10:09 | PN ---
Date/Time of Note Date/Time of Note DATE: 11/27/16 TIME: 10:02 Assessment/Plan VTE Prophylaxis VTE Prophylaxis Intervention: anti-embolic stocking, SCD's Lines/Catheters IV Catheter Type (from Nrs): Portacath Urinary Cath still in place: Yes Reason Cath still needed: other (indicate) (moniotor UOP ) Assessment/Plan Assessment/Plan 71-year-old male with: 1. Gastrointestinal bleeding, UGIB from duodenal ulcers s/p clipping of some. Subsequent bleeding scan negative . S/p 4 units pRBC and 2 units of FFP, Hb up to 9.5 to 9.7 and stable Continue IV fluids at lower rate while advancing diet Appreciate Dr. Rowell assistance, continue PPI. 2. 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 Unfortunately, the patient is not a candidate for any chemotherapy according to the family, and Xeloda was also discontinued. At this point, it seems that palliative care would be the most reasonable route. The family will discuss that option, and they can also address with his oncologist. 3. Severe dysphagia and known esophagitis and esophageal ulcers. Esophagitis improved on repeat EGD yesterday but had duodenal ulcers with stigmata of recent bleeding Continue PPI and advancing diet as tolerated. 4. Coronary artery disease, status post multiple stent placements. Off Plavix and aspirin due to episodes of bleeding. Episode of 6 beats NSVT, asymptomatic, but for now unable to resume Coreg yet due to borderline BP 5. Dehydration, hypovolemia secondary to gastrointestinal bleed. Much improved PRN blood transfusion, both packed red blood cells and FFP. Continue IVF at lower rate. Strict i/o, d/c Murray in AM. 6. Hyperlipidemia. Holding statin for now . 7. Protein calorie malnutrition which is severe in this patient's status. G- tube in place Resume Tube feeding in AM, advancing diet as tolerated 8. Hypokalemia/Hypophosphatemia: resolved Prophylaxis. SCDs to lower extremity for deep venous thrombosis prophylaxis, and on Protonix b.i.d. DISPOSITION: Transfer to telemetry after electrolytes repletion FULL CODE. Subjective 24 Hr Interval Summary Free Text/Dictation Patient much more awake and alert but still with generalized weakness Tolerating clears and to advance diet today Hb stable and no further bleeding observed PT eval in AM Exam/Review of Systems Vital Signs Vitals Vital Signs Date Time Temp Pulse Resp B/P Pulse Ox O2 Delivery O2 Flow Rate FiO2 11/27/16 08:03 83 11/27/16 08:00 Nasal Cannula 2.0 11/27/16 07:00 98.6 18 99/58 96 Intake and Output 11/26/16 11/26/16 11/27/16 15:00 23:00 07:00 Intake Total 410 ml 220 ml 880 ml Output Total 250 ml 30 ml 600 ml Balance 160 ml 190 ml 280 ml Exam Constitutional: alert, frail, oriented Respiratory: clear to auscultation, normal air movement Cardiovascular: nl pulses, regular rate and rhythm Gastrointestinal: non-tender, other (G tube in palce ), soft Musculoskeletal: swelling (LE bilaterally ) Extremities: normal pulses 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, 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, nl mental status, nl speech, other (generalised weakness but much more awake ) Results Result Diagram: 11/27/16 0605 11/27/16 0605 Results 24 hrs Laboratory Tests Test 11/26/16 12:36 11/26/16 12:45 11/26/16 16:12 11/26/16 22:12 Bedside Glucose 123 131 124 Hemoglobin 10.0 L Hematocrit 31.2 L Test 11/27/16 00:55 11/27/16 05:00 11/27/16 05:03 11/27/16 06:05 Bedside Glucose 122 112 Phosphorus Level 2.1 L Magnesium Level 2.3 White Blood Count 10.2 Red Blood Count 3.13 L Hemoglobin 9.7 L Hematocrit 31.4 L Mean Corpuscular Volume 100.3 Mean Corpuscular Hemoglobin 31.0 Mean Corpuscular Hemoglobin Concent 30.9 L Red Cell Distribution Width 19.6 H Platelet Count 144 Mean Platelet Volume 11.3 H Neutrophils % 80.3 H Lymphocytes % 7.5 L Monocytes % 9.1 Eosinophils % 0.2 Basophils % 0.2 Nucleated Red Blood Cells % 0.7 H Neutrophils # 8.2 H Lymphocytes # 0.8 Monocytes # 0.9 Eosinophils # 0.0 Basophils # 0.0 Nucleated Red Blood Cells # 0.1 H Sodium Level 144 Potassium Level 4.4 Chloride Level 116 H Carbon Dioxide Level 23 Anion Gap 9 Blood Urea Nitrogen 17 Creatinine 0.65 Glucose Level 118 Calcium Level 7.5 L Test 11/27/16 08:06 Bedside Glucose 116 Medications Medications Current Medications Ondansetron HCl (Zofran Inj) 4 mg Q6H PRN IV NAUSEA AND/OR VOMITING; Start at 17:00 Acetaminophen (Tylenol Liquid) 650 mg Q6H PRN PO PAIN LEVEL 1-3 OR FEVER; Start 11/24/16 at 17:00 Acetaminophen (Tylenol Supp) 650 mg Q4H PRN [place] PAIN LEVEL 1-3 OR FEVER; Start 11/24/16 at 17:00 Morphine Sulfate (morphine) 2 mg Q4H PRN IV PAIN LEVEL 7-10 Last administered on 11/26/16 22:50; Admin Dose 2 MG; Start 11/24/16 at 17:00 Miscellaneous Information 1 ea NOTE XX ; Start 11/24/16 at 17:30 Glucose (Glutose) 15 gm Q15M PRN PO DECREASED GLUCOSE; Start 11/24/16 at 17:30 Glucose (Glutose) 22.5 gm Q15M PRN PO DECREASED GLUCOSE; Start 11/24/16 at 17: 30 Dextrose (D50w Syringe) 25 ml Q15M PRN IV DECREASED GLUCOSE; Start 11/24/16 at 17:30 Dextrose (D50w Syringe) 50 ml Q15M PRN IV DECREASED GLUCOSE; Start 11/24/16 at 17:30 Glucagon (Glucagen) 1 mg Q15M PRN IM DECREASED GLUCOSE; Start 11/24/16 at 17:30 Glucose 15 gm 15 gm Q15M PRN BUCCAL DECREASED GLUCOSE; Start 11/24/16 at 17:30 Pantoprazole 80 mg/Sodium Chloride 100 ml @ 10 mls/hr Q10H IV Last administered on 11/27/16 08:09; Admin Dose 10 MLS/HR; Start 11/25/16 at 17:00 Potassium Chloride/Dextrose/ Sod Cl (D5-1/2ns + KCl 40 Meq) 1,000 ml @ 100 mls/ hr Q10H IV Last administered on 11/26/16 22:13; Admin Dose 100 MLS/HR; Start 11/26/16 at 09:30 CHAU DAVILA Nov 27, 2016 10:09
--- NOTE | 2016-11-27 11:37 | PN ---
Date/Time of Note Date/Time of Note DATE: 11/27/16 TIME: 11:31 Assessment/Plan VTE Prophylaxis VTE Prophylaxis Intervention: SCD's Lines/Catheters IV [facility] Porthacath Urinary Cath still in place: Yes Reason Cath still needed: urinary retention Assessment/Plan Assessment/Plan Anemia/GI bleed/hematochezia * Colonoscopy 11/25/16: * Suboptimal examination due to extremely poor preparation with large amounts of old blood and clots in the colon. * EGD 11/25/2016 * Ulcerative esophagitis (improved comparing to previous examination). * Gastrostomy tube in place. * Active postbulbar duodenal ulcerations ranging in size from 8 to 12 mm. * One of the ulcers with stigmata of recent bleeding and endoclip applied with no residual bleeding. * Bleeding scan 11/25/2016 * Negative Metastatic colon ca Stage SHAI with liver metastasis * S/P Chemotherapy/currently on hold S/P EGD/PEG placement h/o ulcerative esophagitis CAD Plan * Continue present regimen * Monitor H/H transfuse PRN * Advance diet as tolerated Subjective 24 Hr Interval Summary Free Text/Dictation * Course reviewed with RN * patient seen and examined * no hematochezia,hematemesis * hemoglobin 9.7 stable Exam/Review of Systems Vital Signs Vitals Vital Signs Date Time Temp Pulse Resp B/P Pulse Ox O2 Delivery O2 Flow Rate FiO2 11/27/16 11:20 98.2 93 18 101/60 95 11/27/16 08:00 Nasal Cannula 2.0 Intake and Output 11/26/16 11/26/16 11/27/16 15:00 23:00 07:00 Intake Total 410 ml 220 ml 880 ml Output Total 250 ml 30 ml 600 ml Balance 160 ml 190 ml 280 ml Exam Constitutional: alert, frail Psych: no complaints Eyes: PERRL, nl sclera Neck: non-tender, supple Respiratory: clear to auscultation, diminished breath sounds, normal air movement Cardiovascular: nl pulses, regular rate and rhythm Gastrointestinal: bowel sounds, non-tender, other (g tube in placed), soft Musculoskeletal: nl extremities to inspection Extremities: normal pulses Skin: nl turgor Lymph: nl lymph nodes Results Result Diagram: 11/27/16 0605 11/27/16 0605 Results 24 hrs Laboratory Tests Test 11/26/16 12:36 11/26/16 12:45 11/26/16 16:12 11/26/16 22:12 Bedside Glucose 123 131 124 Hemoglobin 10.0 L Hematocrit 31.2 L Test 11/27/16 00:55 11/27/16 05:00 11/27/16 05:03 11/27/16 06:05 Bedside Glucose 122 112 Phosphorus Level 2.1 L Magnesium Level 2.3 White Blood Count 10.2 Red Blood Count 3.13 L Hemoglobin 9.7 L Hematocrit 31.4 L Mean Corpuscular Volume 100.3 Mean Corpuscular Hemoglobin 31.0 Mean Corpuscular Hemoglobin Concent 30.9 L Red Cell Distribution Width 19.6 H Platelet Count 144 Mean Platelet Volume 11.3 H Neutrophils % 80.3 H Lymphocytes % 7.5 L Monocytes % 9.1 Eosinophils % 0.2 Basophils % 0.2 Nucleated Red Blood Cells % 0.7 H Neutrophils # 8.2 H Lymphocytes # 0.8 Monocytes # 0.9 Eosinophils # 0.0 Basophils # 0.0 Nucleated Red Blood Cells # 0.1 H Sodium Level 144 Potassium Level 4.4 Chloride Level 116 H Carbon Dioxide Level 23 Anion Gap 9 Blood Urea Nitrogen 17 Creatinine 0.65 Glucose Level 118 Calcium Level 7.5 L Test 11/27/16 08:06 Bedside Glucose 116 Medications Medications Current Medications Ondansetron HCl (Zofran Inj) 4 mg Q6H PRN IV NAUSEA AND/OR VOMITING; Start at 17:00 Acetaminophen (Tylenol Liquid) 650 mg Q6H PRN PO PAIN LEVEL 1-3 OR FEVER; Start 11/24/16 at 17:00 Acetaminophen (Tylenol Supp) 650 mg Q4H PRN [place] PAIN LEVEL 1-3 OR FEVER; Start 11/24/16 at 17:00 Morphine Sulfate (morphine) 2 mg Q4H PRN IV PAIN LEVEL 7-10 Last administered on 11/26/16t 22:50; Admin Dose 2 MG; Start 11/24/16 at 17:00 Miscellaneous Information 1 ea NOTE XX ; Start 11/24/16 at 17:30 Glucose (Glutose) 15 gm Q15M PRN PO DECREASED GLUCOSE; Start 11/24/16 at 17:30 Glucose (Glutose) 22.5 gm Q15M PRN PO DECREASED GLUCOSE; Start 11/24/16 at 17: 30 Dextrose (D50w Syringe) 25 ml Q15M PRN IV DECREASED GLUCOSE; Start 11/24/16 at 17:30 Dextrose (D50w Syringe) 50 ml Q15M PRN IV DECREASED GLUCOSE; Start 11/24/16 at 17:30 Glucagon (Glucagen) 1 mg Q15M PRN IM DECREASED GLUCOSE; Start 11/24/16 at 17:30 Glucose 15 gm 15 gm Q15M PRN BUCCAL DECREASED GLUCOSE; Start 11/24/16 at 17:30 Pantoprazole 80 mg/Sodium Chloride 100 ml @ 10 mls/hr Q10H IV Last administered on 11/27/16 08:09; Admin Dose 10 MLS/HR; Start 11/25/16 at 17:00 Potassium Chloride/Dextrose/ Sod Cl (D5-1/2ns + KCl 40 Meq) 1,000 ml @ 75 mls/ hr [id number] IV Last administered on 11/27/16 11:04; Admin Dose 75 MLS/HR; Start 11/26/16 at 09:30 DHARMESH VELEZ MD Nov 27, 2016 11:37
[2016-11-27] MEDS: morphine 2 MG INJ IV PRN (23:48)
[2016-11-28] VITALS (12 sets, daily range): BP systolic 90–117; BP diastolic 51–64; PULSE 90–96; RESP 18
[2016-11-28] MEDS: PANTOPRAZOLE IV 80 MG in SOD CHLORIDE 0.9% 100 ML IV SCH (04:42)
[2016-11-28 06:50] LABS: ADD SCAN DIFF NO
[2016-11-28 07:10] LABS: BASOPHILS % 0.1 % (0.0-2.0); EOSINOPHILS % 0.3 % (0.0-7.0); HEMATOCRIT 31.6 % (42.0-52.0); HEMOGLOBIN 9.3 g/dl (14.0-18.0); LYMPHOCYTES # 0.8 10^3/ul (0.8-2.9); LYMPHOCYTES % 7.7 % (15.0-51.0); MEAN CORPUSCULAR HGB CONC 29.4 g/dl (32.0-37.0); MEAN CORPUSCULAR VOLUME 101.9 fl (82.0-101.0); MEAN PLATELET VOLUME 11.9 fl (7.4-10.4); MONOCYTE # 0.9 10^3/ul (0.3-0.9); NEUTROPHILS % 80.1 % (39.0-77.0); NUCLEATED RED BLOOD CELLS% 0.3 /100WBC (0.0-0.0); PLATELET COUNT 119 10^3/UL (140-415); RED CELL DISTRIBUTION WIDTH 19.9 % (11.5-14.5)
[2016-11-28 07:16] LABS: INR 1.43; PROTIME 17.5 Sec (12.2-14.2); PT RATIO 1.4
[2016-11-28 07:17] LABS: PARTIAL THROMBOPLASTIN TIME 29.7 Sec (25.0-35.0)
[2016-11-28 07:19] LABS: POTASSIUM 4.1 mmol/L (3.5-5.1)
[2016-11-28 07:21] LABS: ALBUMIN/GLOBULIN RATIO 0.68; BILIRUBIN,DIRECT 0.7 mg/dl (0.00-0.20); BILIRUBIN,INDIRECT 0.7 mg/dl (0-1.1); BILIRUBIN,TOTAL 1.4 mg/dl (0.2-1.3); CREATININE 0.57 mg/dl (0.61-1.24); TOTAL PROTEIN 4.9 g/dl (6.1-8.1)
[2016-11-28 07:22] LABS: CALCIUM 7.7 mg/dl (8.4-10.2); MAGNESIUM 2.2 mg/dl (1.7-2.5); PHOSPHORUS 1.7 mg/dl (2.5-4.9)
[2016-11-28] MEDS: INSULIN ASPART [NOVOLOG] 3 ML PEN SC SCH ×4 (07:55→21:00)
[2016-11-28 11:30] LABS: HEMOGLOBIN 4.4 g/dl (14.0-18.0)
[2016-11-28 11:31] LABS: WHITE BLOOD COUNT 7.8 10^3/ul (4.8-10.8)
[2016-11-28] MEDS: D5W-0.45 NACL + KCL 40 MEQ 1,000 ML IV SCH (13:08)
--- NOTE | 2016-11-28 14:22 | PN ---
Date/Time of Note Date/Time of Note DATE: 11/28/16 TIME: 14:18 Assessment/Plan VTE Prophylaxis VTE Prophylaxis Intervention: anti-embolic stocking, SCD's Lines/Catheters IV Catheter Type (from Nrs): Portacath Urinary Cath still in place: Yes Reason Cath still needed: other (indicate) (for monitoring UOP ) Assessment/Plan Assessment/Plan 71-year-old male with: 1. Gastrointestinal bleeding, UGIB from duodenal ulcers s/p clipping of some. Subsequent bleeding scan negative . S/p 4 units pRBC and 2 units of FFP, Hb up to 9.3 to 10 and stable D/c IVF since starting TF and po as tolerated. Appreciate Dr. Rowell assistance, continue PPI. 2. 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 Unfortunately, the patient is not a candidate for any chemotherapy according to the family, and Xeloda was also discontinued. At this point, it seems that palliative care would be the most reasonable route. The family will discuss that option, and they can also address with his oncologist. 3. Severe dysphagia and known esophagitis and esophageal ulcers. Esophagitis improved on repeat EGD yesterday but had duodenal ulcers with stigmata of recent bleeding Continue PPI and advancing diet as tolerated. 4. Coronary artery disease, status post multiple stent placements. Off Plavix and aspirin due to episodes of bleeding. Episode of 6 beats NSVT, asymptomatic, but for now unable to resume Coreg yet due to borderline BP 5. Dehydration, hypovolemia secondary to gastrointestinal bleed. Much improved PRN blood transfusion, both packed red blood cells and FFP. Tube feeding with free H2O being resumed, d/c IVF for now plan for d/c Murray in AM. 6. Hyperlipidemia. Holding statin for now . 7. Protein calorie malnutrition which is severe in this patient's status. G- tube in place Resume Tube feeding in AM, advancing diet as tolerated 8. Hypokalemia/Hypophosphatemia: resolved Prophylaxis. SCDs to lower extremity for deep venous thrombosis prophylaxis, and on Protonix b.i.d. DISPOSITION: Transfer to telemetry after electrolytes repletion FULL CODE. Subjective 24 Hr Interval Summary Free Text/Dictation Patient awake and alert, Hb remains stable Afebrile and anasarca improving Minimal po intake so will resume tube feedings Exam/Review of Systems Vital Signs Vitals Vital Signs Date Time Temp Pulse Resp B/P Pulse Ox O2 Delivery O2 Flow Rate FiO2 11/28/16 12:02 97.3 94 18 90/55 96 11/28/16 08:13 4.0 11/28/16 08:00 Nasal Cannula Intake and Output 11/27/16 11/27/16 11/28/16 15:00 23:00 07:00 Intake Total 20 ml 900 ml 1145 ml Output Total 650 ml 480 ml Balance 20 ml 250 ml 665 ml Exam Constitutional: alert, frail, oriented Respiratory: clear to auscultation, normal air movement Cardiovascular: nl pulses, regular rate and rhythm Gastrointestinal: non-tender, other (G tube in place ), soft Genitourinary - Male: other (penile edema improving with elevation ) Musculoskeletal: nl extremities to inspection Extremities: normal pulses, other (trace edema with TEDs, no clubbing or cyanosis ) 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, 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 Results Result Diagram: 11/28/16 0530 11/28/16 0530 Results 24 hrs Laboratory Tests Test 11/27/16 17:37 11/27/16 20:47 11/28/16 05:30 11/28/16 08:21 Bedside Glucose 122 108 99 White Blood Count 10.0 Red Blood Count 3.10 L Hemoglobin 9.3 L Hematocrit 31.6 L Mean Corpuscular Volume 101.9 H Mean Corpuscular Hemoglobin 30.0 Mean Corpuscular Hemoglobin Concent 29.4 L Red Cell Distribution Width 19.9 H Platelet Count 119 L Mean Platelet Volume 11.9 H Neutrophils % 80.1 H Lymphocytes % 7.7 L Monocytes % 9.0 Eosinophils % 0.3 Basophils % 0.1 Nucleated Red Blood Cells % 0.3 H Neutrophils # 8.0 H Lymphocytes # 0.8 Monocytes # 0.9 Eosinophils # 0.0 Basophils # 0.0 Nucleated Red Blood Cells # 0.0 Prothrombin Time 17.5 H Prothrombin Time Ratio 1.4 INR International Normalized Ratio 1.43 Activated Partial Thromboplast Time 29.7 Sodium Level 142 Potassium Level 4.1 Chloride Level 110 Carbon Dioxide Level 22 Anion Gap 14 Blood Urea Nitrogen 14 Creatinine 0.57 L Glucose Level 95 Calcium Level 7.7 L Phosphorus Level 1.7 L Magnesium Level 2.2 Total Bilirubin 1.4 H Direct Bilirubin 0.70 H Indirect Bilirubin 0.7 Aspartate Amino Transf (AST/SGOT) 120 H Alanine Aminotransferase (ALT/SGPT) 50 Alkaline Phosphatase 896 H Total Protein 4.9 L Albumin 2.0 L Globulin 2.90 Albumin/Globulin Ratio 0.68 Test 11/28/16 12:16 Bedside Glucose 103 Medications Medications Current Medications Ondansetron HCl (Zofran Inj) 4 mg Q6H PRN IV NAUSEA AND/OR VOMITING; Start at 17:00 Acetaminophen (Tylenol Liquid) 650 mg Q6H PRN PO PAIN LEVEL 1-3 OR FEVER; Start 11/24/16 at 17:00 Acetaminophen (Tylenol Supp) 650 mg Q4H PRN [place] PAIN LEVEL 1-3 OR FEVER; Start 11/24/16 at 17:00 Morphine Sulfate (morphine) 2 mg Q4H PRN IV PAIN LEVEL 7-10 Last administered on 11/27/16 23:48; Admin Dose 2 MG; Start 11/24/16 at 17:00 Miscellaneous Information 1 ea NOTE XX ; Start 11/24/16 at 17:30 Glucose (Glutose) 15 gm Q15M PRN PO DECREASED GLUCOSE; Start 11/24/16 at 17:30 Glucose (Glutose) 22.5 gm Q15M PRN PO DECREASED GLUCOSE; Start 11/24/16 at 17: 30 Dextrose (D50w Syringe) 25 ml Q15M PRN IV DECREASED GLUCOSE; Start 11/24/16 at 17:30 Dextrose (D50w Syringe) 50 ml Q15M PRN IV DECREASED GLUCOSE; Start 11/24/16 at 17:30 Glucagon (Glucagen) 1 mg Q15M PRN IM DECREASED GLUCOSE; Start 11/24/16 at 17:30 Glucose 15 gm 15 gm Q15M PRN BUCCAL DECREASED GLUCOSE; Start 11/24/16 at 17:30 Pantoprazole 80 mg/Sodium Chloride 100 ml @ 10 mls/hr Q10H IV Last administered on 11/28/16 04:42; Admin Dose 10 MLS/HR; Start 11/25/16 at 17:00 Potassium Chloride/Dextrose/ Sod Cl (D5-1/2ns + KCl 40 Meq) 1,000 ml @ 75 mls/ hr [id number] IV Last administered on 11/28/16 13:08; Admin Dose 75 MLS/HR; Start 11/26/16 at 09:30 CHAU DAVILA Nov 28, 2016 14:22
--- NOTE | 2016-11-28 14:36 | PN ---
Date/Time of Note Date/Time of Note DATE: 11/28/16 TIME: 14:31 Assessment/Plan VTE Prophylaxis VTE Prophylaxis Intervention: SCD's Lines/Catheters IV [facility] Type [facility] Portacath Urinary Cath still in place: Yes Reason Cath still needed: urinary retention Assessment/Plan Assessment/Plan Anemia/GI bleed/hematochezia * Colonoscopy 11/25/16: * Suboptimal examination due to extremely poor preparation with large amounts of old blood and clots in the colon. * EGD 11/25/2016 * Ulcerative esophagitis (improved comparing to previous examination). * Gastrostomy tube in place. * Active postbulbar duodenal ulcerations ranging in size from 8 to 12 mm. * One of the ulcers with stigmata of recent bleeding and endoclip applied with no residual bleeding. * Bleeding scan 11/25/2016 * Negative Metastatic colon ca Stage SHAI with liver metastasis * S/P Chemotherapy/currently on hold S/P EGD/PEG placement h/o ulcerative esophagitis CAD Plan * Continue present regimen * Monitor H/H transfuse PRN * D/C protonix drip shift to iv protonix * Advance diet as tolerated Subjective 24 Hr Interval Summary Free Text/Dictation * Course reviewed with RN * patient seen and examined * No hematemesis nor hematochezia * tolerating pureed diet Exam/Review of Systems Vital Signs Vitals Vital Signs Date Time Temp Pulse Resp B/P Pulse Ox O2 Delivery O2 Flow Rate FiO2 11/28/16 12:02 97.3 94 18 90/55 96 11/28/16 08:13 4.0 11/28/16 08:00 Nasal Cannula Intake and Output 11/27/16 11/27/16 11/28/16 15:00 23:00 07:00 Intake Total 20 ml 900 ml 1145 ml Output Total 650 ml 480 ml Balance 20 ml 250 ml 665 ml Exam Constitutional: alert, frail Head: normocephalic Eyes: PERRL, nl sclera Neck: non-tender, supple Respiratory: clear to auscultation, diminished breath sounds, normal air movement Cardiovascular: nl pulses, regular rate and rhythm Gastrointestinal: bowel sounds, non-tender, other (g tube dressing dry), soft, No rebound or guarding Genitourinary - Male: other (scrotal edema) Musculoskeletal: muscle weakness, nl extremities to inspection Skin: nl turgor, rash or lesions Results Result Diagram: 11/28/16 0530 11/28/16 0530 Results 24 hrs Laboratory Tests Test 11/27/16 17:37 11/27/16 20:47 11/28/16 05:30 11/28/16 08:21 Bedside Glucose 122 108 99 White Blood Count 10.0 Red Blood Count 3.10 L Hemoglobin 9.3 L Hematocrit 31.6 L Mean Corpuscular Volume 101.9 H Mean Corpuscular Hemoglobin 30.0 Mean Corpuscular Hemoglobin Concent 29.4 L Red Cell Distribution Width 19.9 H Platelet Count 119 L Mean Platelet Volume 11.9 H Neutrophils % 80.1 H Lymphocytes % 7.7 L Monocytes % 9.0 Eosinophils % 0.3 Basophils % 0.1 Nucleated Red Blood Cells % 0.3 H Neutrophils # 8.0 H Lymphocytes # 0.8 Monocytes # 0.9 Eosinophils # 0.0 Basophils # 0.0 Nucleated Red Blood Cells # 0.0 Prothrombin Time 17.5 H Prothrombin Time Ratio 1.4 INR International Normalized Ratio 1.43 Activated Partial Thromboplast Time 29.7 Sodium Level 142 Potassium Level 4.1 Chloride Level 110 Carbon Dioxide Level 22 Anion Gap 14 Blood Urea Nitrogen 14 Creatinine 0.57 L Glucose Level 95 Calcium Level 7.7 L Phosphorus Level 1.7 L Magnesium Level 2.2 Total Bilirubin 1.4 H Direct Bilirubin 0.70 H Indirect Bilirubin 0.7 Aspartate Amino Transf (AST/SGOT) 120 H Alanine Aminotransferase (ALT/SGPT) 50 Alkaline Phosphatase 896 H Total Protein 4.9 L Albumin 2.0 L Globulin 2.90 Albumin/Globulin Ratio 0.68 Test 11/28/16 12:16 Bedside Glucose 103 Medications Medications Current Medications Ondansetron HCl (Zofran Inj) 4 mg Q6H PRN IV NAUSEA AND/OR VOMITING; Start at 17:00 Acetaminophen (Tylenol Liquid) 650 mg Q6H PRN PO PAIN LEVEL 1-3 OR FEVER; Start 11/24/16 at 17:00 Acetaminophen (Tylenol Supp) [address] PAIN LEVEL 1-3 OR FEVER; Start 11/24/16 at 17:00 Morphine Sulfate (morphine) 2 mg Q4H PRN IV PAIN LEVEL 7-10 Last administered on 11/27/16t 23:48; Admin Dose 2 MG; Start 11/24/16 at 17:00 Miscellaneous Information 1 ea NOTE XX ; Start 11/24/16 at 17:30 Glucose (Glutose) 15 gm Q15M PRN PO DECREASED GLUCOSE; Start 11/24/16 at 17:30 Glucose (Glutose) 22.5 gm Q15M PRN PO DECREASED GLUCOSE; Start 11/24/16 at 17: 30 Dextrose (D50w Syringe) 25 ml Q15M PRN IV DECREASED GLUCOSE; Start 11/24/16 at 17:30 Dextrose (D50w Syringe) 50 ml Q15M PRN IV DECREASED GLUCOSE; Start 11/24/16 at 17:30 Glucagon (Glucagen) 1 mg Q15M PRN IM DECREASED GLUCOSE; Start 11/24/16 at 17:30 Glucose 15 gm 15 gm Q15M PRN BUCCAL DECREASED GLUCOSE; Start 11/24/16 at 17:30 Pantoprazole 80 mg/Sodium Chloride 100 ml @ 10 mls/hr Q10H IV Last administered on 11/28/16 04:42; Admin Dose 10 MLS/HR; Start 11/25/16 at 17:00 Potassium Chloride/Dextrose/ Sod Cl (D5-1/2ns + KCl 40 Meq) 1,000 ml @ 75 mls/ hr [id number] IV Last administered on 11/28/16 13:08; Admin Dose 75 MLS/HR; Start 11/26/16 at 09:30 DHARMESH VELEZ MD Nov 28, 2016 14:36
[2016-11-28] MEDS ORDERED: PANTOPRAZOLE 40 MG INJ IV SCH (18:00)
[2016-11-28] MEDS: morphine 2 MG INJ IV PRN (22:48)
[2016-11-29] VITALS (14 sets, daily range): BP systolic 88–110; BP diastolic 55–66; PULSE 90–188; RESP 16–22
[2016-11-29] MEDS: PANTOPRAZOLE (EC) 40 MG TAB PO SCH ×2 (05:23→17:50)
[2016-11-29] MEDS: INSULIN ASPART [NOVOLOG] 3 ML PEN SC SCH ×4 (07:55→20:58)
[2016-11-29 09:52] LABS: ADD SCAN DIFF NO
[2016-11-29 10:11] LABS: CALCIUM 8.1 mg/dl (8.4-10.2); CREATININE 0.57 mg/dl (0.61-1.24); MAGNESIUM 2.2 mg/dl (1.7-2.5); PHOSPHORUS 1.7 mg/dl (2.5-4.9); POTASSIUM 3.9 mmol/L (3.5-5.1)
[2016-11-29 10:40] LABS: BASOPHILS % 0.1 % (0.0-2.0); EOSINOPHILS % 0.1 % (0.0-7.0); HEMATOCRIT 32.9 % (42.0-52.0); LYMPHOCYTES # 0.7 10^3/ul (0.8-2.9); LYMPHOCYTES % 5.7 % (15.0-51.0); MEAN CORPUSCULAR HEMOGLOBIN 30.5 pg (29.0-33.0); MEAN CORPUSCULAR HGB CONC 30.4 g/dl (32.0-37.0); MEAN CORPUSCULAR VOLUME 100.3 fl (82.0-101.0); MEAN PLATELET VOLUME 11.7 fl (7.4-10.4); MONOCYTES % 8.2 % (0.0-11.0); NEUTROPHIL # 9.8 10^3/ul (1.6-7.5); NEUTROPHILS % 83.2 % (39.0-77.0); PLATELET COUNT 123 10^3/UL (140-415); RED BLOOD COUNT 3.28 10^6/ul (4.70-6.10); RED CELL DISTRIBUTION WIDTH 19.6 % (11.5-14.5); WHITE BLOOD COUNT 11.8 10^3/ul (4.8-10.8)
--- NOTE | 2016-11-29 13:18 | PN ---
Date/Time of Note Date/Time of Note DATE: 11/29/16 TIME: 12:52 Assessment/Plan VTE Prophylaxis VTE Prophylaxis Intervention: SCD's Lines/Catheters IV [facility] (from [facility] PortaCath Urinary Cath still in place: Yes Reason Cath still needed: other (indicate) (to be discontinued today ) Assessment/Plan Assessment/Plan 71-year-old male with: 1. Gastrointestinal bleeding, UGIB from duodenal ulcers s/p clipping of some. Subsequent bleeding scan negative . S/p 4 units pRBC and 2 units of FFP, Hb up to 9.3 to 10 and stable D/c IVF since starting TF and po as tolerated. Appreciate Dr. Rowell assistance, continue PPI po bid. 2. 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 Unfortunately, the patient is not a candidate for any chemotherapy according to the family, and Xeloda was also discontinued. At this point, it seems that palliative care would be the most reasonable route. The family will discuss that option, and they can also address with his oncologist. 3. Severe dysphagia and known esophagitis and esophageal ulcers. Esophagitis improved on repeat EGD yesterday but had duodenal ulcers with stigmata of recent bleeding Continue PPI and advancing diet as tolerated. Also back on Tube feedings and free H2O 4. Coronary artery disease, status post multiple stent placements. Off Plavix and aspirin due to episodes of bleeding. Off Coreg so far due to BP borderline low. 5. Dehydration, hypovolemia secondary to gastrointestinal bleed. Much improved PRN blood transfusion, both packed red blood cells and FFP. Tube feeding with free H2O being resumed. D/c Murray now 6. Hyperlipidemia. Holding statin for now . 7. Protein calorie malnutrition which is severe in this patient's status. G- tube in place Back on Tube feeding and advancing diet as tolerated 8. Hypokalemia/Hypophosphatemia: resolved Prophylaxis. SCDs to lower extremity for deep venous thrombosis prophylaxis, and on Protonix b.i.d. DISPOSITION: D/c Home back on Home health and TF at home to be resumed. FULL CODE. Subjective 24 Hr Interval Summary Free Text/Dictation Patient awake and wants to go home Discussed with Family also wants him home D/c Murray today and if able to urinate will go home Exam/Review of Systems Vital Signs Vitals Vital Signs Date Time Temp Pulse Resp B/P Pulse Ox O2 Delivery O2 Flow Rate FiO2 11/29/16 12:28 104 11/29/16 11:20 97.8 18 92/56 97 11/29/16 07:30 Nasal Cannula 2.0 Intake and Output 11/28/16 11/28/16 11/29/16 15:00 23:00 07:00 Intake Total 1385 ml 1180 ml Output Total 500 ml 475 ml Balance 885 ml 705 ml Exam Constitutional: alert, frail, oriented, other (but much more awake and interactive) Respiratory: clear to auscultation, normal air movement Cardiovascular: nl pulses, regular rate and rhythm Gastrointestinal: non-tender, other (G tube in place and tolerating TF and free H20 ), soft Genitourinary - Male: other (Murray to be d/c) Extremities: normal pulses, other (anasarca, better ) 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, lethargic, nl mental status Results Result Diagram: 11/29/16 0910 11/29/16 0910 Results 24 hrs Laboratory Tests Test 11/28/16 16:55 11/28/16 21:53 11/29/16 08:09 11/29/16 09:10 Bedside Glucose 98 93 93 White Blood Count 11.8 H Red Blood Count 3.28 L Hemoglobin 10.0 L Hematocrit 32.9 L Mean Corpuscular Volume 100.3 Mean Corpuscular Hemoglobin 30.5 Mean Corpuscular Hemoglobin Concent 30.4 L Red Cell Distribution Width 19.6 H Platelet Count 123 L Mean Platelet Volume 11.7 H Neutrophils % 83.2 H Lymphocytes % 5.7 L Monocytes % 8.2 Eosinophils % 0.1 Basophils % 0.1 Nucleated Red Blood Cells % 0.0 Neutrophils # 9.8 H Lymphocytes # 0.7 L Monocytes # 1.0 H Eosinophils # 0.0 Basophils # 0.0 Nucleated Red Blood Cells # 0.0 Sodium Level 137 Potassium Level 3.9 Chloride Level 109 Carbon Dioxide Level 20 L Anion Gap 12 Blood Urea Nitrogen 13 Creatinine 0.57 L Glucose Level 124 Calcium Level 8.1 L Phosphorus Level 1.7 L Magnesium Level 2.2 Test 11/29/16 12:19 Bedside Glucose 105 Medications Medications Current Medications Ondansetron HCl (Zofran Inj) 4 mg Q6H PRN IV NAUSEA AND/OR VOMITING; Start at 17:00 Acetaminophen (Tylenol Liquid) 650 mg Q6H PRN PO PAIN LEVEL 1-3 OR FEVER; Start 11/24/16 at 17:00 Acetaminophen (Tylenol Supp) 650 mg Q4H PRN [place] PAIN LEVEL 1-3 OR FEVER; Start 11/24/16 at 17:00 Morphine Sulfate (morphine) 2 mg Q4H PRN IV PAIN LEVEL 7-10 Last administered on 11/28/16 22:48; Admin Dose 2 MG; Start 11/24/16 at 17:00 Miscellaneous Information 1 ea NOTE XX ; Start 11/24/16 at 17:30 Glucose (Glutose) 15 gm Q15M PRN PO DECREASED GLUCOSE; Start 11/24/16 at 17:30 Glucose (Glutose) 22.5 gm Q15M PRN PO DECREASED GLUCOSE; Start 11/24/16 at 17: 30 Dextrose (D50w Syringe) 25 ml Q15M PRN IV DECREASED GLUCOSE; Start 11/24/16 at 17:30 Dextrose (D50w Syringe) 50 ml Q15M PRN IV DECREASED GLUCOSE; Start 11/24/16 at 17:30 Glucagon (Glucagen) 1 mg Q15M PRN IM DECREASED GLUCOSE; Start 11/24/16 at 17:30 Glucose (Glutose) 15 gm Q15M PRN BUCCAL DECREASED GLUCOSE; Start 11/24/16 at 17 :30 Pantoprazole (Protonix Tab) 40 mg BID@06,18 PO Last administered on 11/29/16 05:23; Admin Dose 40 MG; Start 11/29/16 at 06:00 CHAU DAVILA Nov 29, 2016 13:04
--- NOTE | 2016-11-29 13:22 | PDOCDIS ---
Discharge Instructions CONDITION Patient Condition: Stable HOME CARE INSTRUCTIONS: Special Diet: full liquid to soft diet as tolerated ACTIVITY: Activity Restrictions: No Restrictions FOLLOW UP/APPOINTMENTS Appointments Follow up with PCP and outpatient oncologist within 1 to 2 weeks if able to Resume home health RN care for Tube feedings... Resume tube feeding and free H2O home regimen CHAU DAVILA Nov 29, 2016 13:22
[2016-11-29] MEDS ORDERED: FURO40TA4 PO (13:29)
[2016-11-29] MEDS ORDERED: PANT40TA4 PO (13:33)
[2016-11-29] MEDS ORDERED: TAMSULOSIN (SR) 0.4 MG CAP PO SCH (14:00)
--- NOTE | 2016-11-29 16:45 | PN ---
Date/Time of Note Date/Time of Note DATE: 11/29/16 TIME: 16:41 Assessment/Plan VTE Prophylaxis VTE Prophylaxis Intervention: SCD's Lines/Catheters [facility] Urinary Cath still in place: No Assessment/Plan Assessment/Plan Anemia/GI bleed/hematochezia resolved * Colonoscopy 11/25/16: * Suboptimal examination due to extremely poor preparation with large amounts of old blood and clots in the colon. * EGD 11/25/2016 * Ulcerative esophagitis (improved comparing to previous examination). * Gastrostomy tube in place. * Active postbulbar duodenal ulcerations ranging in size from 8 to 12 mm. * One of the ulcers with stigmata of recent bleeding and endoclip applied with no residual bleeding. * Bleeding scan 11/25/2016 * Negative Metastatic colon ca Stage SHAI with liver metastasis * S/P Chemotherapy/currently on hold S/P EGD/PEG placement h/o ulcerative esophagitis CAD Plan * Stable for outpatient management * Continue pantoprazole 40 mg BID for 2 weeks Subjective 24 Hr Interval Summary Free Text/Dictation * Course reviewed with RN * No hematochezia,no hematemesis * Tolerating diet Exam/Review of Systems Vital Signs Vitals Vital Signs Date Time Temp Pulse Resp B/P Pulse Ox O2 Delivery O2 Flow Rate FiO2 11/29/16 16:01 104 11/29/16 15:38 2.0 11/29/16 15:22 98.2 18 97/56 95 11/29/16 07:30 Nasal Cannula Intake and Output 11/28/16 11/28/16 11/29/16 15:00 23:00 07:00 Intake Total 1385 ml 1180 ml Output Total 500 ml 475 ml Balance 885 ml 705 ml Exam Constitutional: alert, oriented Neck: non-tender, supple Respiratory: clear to auscultation, diminished breath sounds, normal air movement Cardiovascular: nl pulses, regular rate and rhythm Gastrointestinal: bowel sounds, nl liver, spleen, non-tender, other (g tube in placed), soft, No rebound or guarding Musculoskeletal: nl extremities to inspection Neurological: nl speech Skin: rash or lesions Results Result Diagram: 11/29/16 0910 11/29/16 0910 Results 24 hrs Laboratory Tests Test 11/28/16 16:55 11/28/16 21:53 11/29/16 08:09 11/29/16 09:10 Bedside Glucose 98 93 93 White Blood Count 11.8 H Red Blood Count 3.28 L Hemoglobin 10.0 L Hematocrit 32.9 L Mean Corpuscular Volume 100.3 Mean Corpuscular Hemoglobin 30.5 Mean Corpuscular Hemoglobin Concent 30.4 L Red Cell Distribution Width 19.6 H Platelet Count 123 L Mean Platelet Volume 11.7 H Neutrophils % 83.2 H Lymphocytes % 5.7 L Monocytes % 8.2 Eosinophils % 0.1 Basophils % 0.1 Nucleated Red Blood Cells % 0.0 Neutrophils # 9.8 H Lymphocytes # 0.7 L Monocytes # 1.0 H Eosinophils # 0.0 Basophils # 0.0 Nucleated Red Blood Cells # 0.0 Sodium Level 137 Potassium Level 3.9 Chloride Level 109 Carbon Dioxide Level 20 L Anion Gap 12 Blood Urea Nitrogen 13 Creatinine 0.57 L Glucose Level 124 Calcium Level 8.1 L Phosphorus Level 1.7 L Magnesium Level 2.2 Test 11/29/16 12:19 Bedside Glucose 105 Medications Medications Current Medications Ondansetron HCl (Zofran Inj) 4 mg Q6H PRN IV NAUSEA AND/OR VOMITING; Start at 17:00 Acetaminophen (Tylenol Liquid) 650 mg Q6H PRN PO PAIN LEVEL 1-3 OR FEVER; Start 11/24/16 at 17:00 Acetaminophen (Tylenol Supp) 650 mg Q4H PRN [place] PAIN LEVEL 1-3 OR FEVER; Start 11/24/16 at 17:00 Morphine Sulfate (morphine) 2 mg Q4H PRN IV PAIN LEVEL 7-10 Last administered on 11/28/16t 22:48; Admin Dose 2 MG; Start 11/24/16 at 17:00 Miscellaneous Information 1 ea NOTE XX ; Start 11/24/16 at 17:30 Glucose (Glutose) 15 gm Q15M PRN PO DECREASED GLUCOSE; Start 11/24/16 at 17:30 Glucose (Glutose) 22.5 gm Q15M PRN PO DECREASED GLUCOSE; Start 11/24/16 at 17: 30 Dextrose (D50w Syringe) 25 ml Q15M PRN IV DECREASED GLUCOSE; Start 11/24/16 at 17:30 Dextrose (D50w Syringe) 50 ml Q15M PRN IV DECREASED GLUCOSE; Start 11/24/16 at 17:30 Glucagon (Glucagen) 1 mg Q15M PRN IM DECREASED GLUCOSE; Start 11/24/16 at 17:30 Glucose (Glutose) 15 gm Q15M PRN BUCCAL DECREASED GLUCOSE; Start 11/24/16 at 17 :30 Pantoprazole (Protonix Tab) 40 mg BID@06,18 PO Last administered on 11/29/16 05:23; Admin Dose 40 MG; Start 11/29/16 at 06:00 Tamsulosin HCl (Flomax) 0.4 mg HS PO Last administered on 11/29/16 13:40; Admin Dose 0.4 MG; Start 11/29/16 at 14:00 DHARMESH VELEZ MD Nov 29, 2016 16:45
[2016-11-30] VITALS (7 sets, daily range): BP systolic 90–103; BP diastolic 55–62; PULSE 97–109; RESP 18–22
[2016-11-30] MEDS: PANTOPRAZOLE (EC) 40 MG TAB PO SCH (05:55)
[2016-11-30] MEDS: INSULIN ASPART [NOVOLOG] 3 ML PEN SC SCH ×2 (07:55→11:50)
--- NOTE | 2016-11-30 12:57 | PN ---
Date/Time of Note Date/Time of Note DATE: 11/30/16 TIME: 12:53 Assessment/Plan VTE Prophylaxis VTE Prophylaxis Intervention: SCD's Lines/Catheters IV [facility]from [facility] [place] Urinary Cath still in place: No Assessment/Plan Assessment/Plan 71-year-old male with: 1. Gastrointestinal bleeding, UGIB from duodenal ulcers s/p clipping of some. Subsequent bleeding scan negative . S/p 4 units pRBC and 2 units of FFP, Hb up to 9.3 to 10 and stable On TF and po as tolerated. Appreciate Dr. Rowell assistance, continue PPI po bid. 2. 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 Unfortunately, the patient is not a candidate for any chemotherapy according to the family, and Xeloda was also discontinued. At this point, it seems that palliative care would be the most reasonable route. The family will discuss that option, and they can also address with his oncologist. 3. Severe dysphagia and known esophagitis and esophageal ulcers. Esophagitis improved on repeat EGD yesterday but had duodenal ulcers with stigmata of recent bleeding Continue PPI and advancing diet as tolerated at home. Continue Tube feedings and free H2O 4. Coronary artery disease, status post multiple stent placements. Off Plavix and aspirin due to episodes of bleeding. Off Coreg so far due to BP borderline low. 5. Dehydration, hypovolemia secondary to gastrointestinal bleed. Much improved PRN blood transfusion, both packed red blood cells and FFP. Tube feeding with free H2O being resumed. Good UOP with Murray out yesterday 6. Hyperlipidemia. Holding statin . 7. Protein calorie malnutrition which is severe in this patient's status. G- tube in place Back on Tube feeding and advancing diet as tolerated 8. Hypokalemia/Hypophosphatemia: resolved Prophylaxis. SCDs to lower extremity for deep venous thrombosis prophylaxis, and on Protonix b.i.d. DISPOSITION: D/c Home today, back on Home health and TF at home to be resumed. FULL CODE. Subjective 24 Hr Interval Summary Free Text/Dictation Patient feels much better but still lethargic and poor prognosis Finally urinated las night after Murray was removed yesterday afternoon D/c home today with Exam/Review of Systems Vital Signs Vitals Vital Signs Date Time Temp Pulse Resp B/P Pulse Ox O2 Delivery O2 Flow Rate FiO2 11/30/16 12:02 109 11/30/16 11:34 98.2 18 103/62 94 11/30/16 07:24 Nasal Cannula 2.0 Intake and Output 11/29/16 11/29/16 11/30/16 15:00 23:00 07:00 Intake Total 1350 ml 1420 ml Output Total 500 ml 650 ml Balance 850 ml 770 ml Exam Constitutional: alert, frail, oriented Respiratory: clear to auscultation, normal air movement Cardiovascular: nl pulses, regular rate and rhythm Gastrointestinal: non-tender, soft Extremities: normal pulses, other (much improved anasarca ) 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, lethargic, nl mental status, nl speech Results Result Diagram: 11/29/16 0910 11/29/16 0910 Results 24 hrs Laboratory Tests Test 11/29/16 17:42 11/29/16 20:34 11/30/16 07:57 Bedside Glucose 119 113 99 Medications Medications Current Medications Ondansetron HCl (Zofran Inj) 4 mg Q6H PRN IV NAUSEA AND/OR VOMITING; Start at 17:00 Acetaminophen (Tylenol Liquid) 650 mg Q6H PRN PO PAIN LEVEL 1-3 OR FEVER Last administered on 11/29/16 22:00; Admin Dose 650 MG; Start 11/24/16 at 17:00 Acetaminophen (Tylenol Supp) 650 mg Q4H PRN [place] PAIN LEVEL 1-3 OR FEVER; Start 11/24/16 at 17:00 Morphine Sulfate (morphine) 2 mg Q4H PRN IV PAIN LEVEL 7-10 Last administered on 11/28/16 22:48; Admin Dose 2 MG; Start 11/24/16 at 17:00 Miscellaneous Information 1 ea NOTE XX ; Start 11/24/16 at 17:30 Glucose (Glutose) 15 gm Q15M PRN PO DECREASED GLUCOSE; Start 11/24/16 at 17:30 Glucose (Glutose) 22.5 gm Q15M PRN PO DECREASED GLUCOSE; Start 11/24/16 at 17: 30 Dextrose (D50w Syringe) 25 ml Q15M PRN IV DECREASED GLUCOSE; Start 11/24/16 at 17:30 Dextrose (D50w Syringe) 50 ml Q15M PRN IV DECREASED GLUCOSE; Start 11/24/16 at 17:30 Glucagon (Glucagen) 1 mg Q15M PRN IM DECREASED GLUCOSE; Start 11/24/16 at 17:30 Glucose (Glutose) 15 gm Q15M PRN BUCCAL DECREASED GLUCOSE; Start 11/24/16 at 17 :30 Pantoprazole (Protonix Tab) 40 mg BID@06,18 PO Last administered on 11/30/16 05:55; Admin Dose 40 MG; Start 11/29/16 at 06:00 Tamsulosin HCl (Flomax) 0.4 mg HS PO Last administered on 11/29/16 13:40; Admin Dose 0.4 MG; Start 11/29/16 at 14:00 CHAU DAVILA Nov 30, 2016 12:57
== END 2016-11-30 12:59 | disposition home health service (06) | DRG 377 ==
LOC: E/R 12:47 → ICU 19:55 → TEL 11-26 18:23
PROVIDERS: ADMIT Internal Medicine; ATTEND Internal Medicine
PROC: 30233K1 Transfusion of Nonautologous Frozen Plasma into Peripheral Vein, Percutaneous Approach (ICD-10-PCS; 2016-11-24)
PROC: 30253N1 (ICD-10-PCS; 2016-11-25)
PROC: 0W3P8ZZ Control Bleeding in Gastrointestinal Tract, Via Natural or Artificial Opening Endoscopic (ICD-10-PCS; principal; 2016-11-25 17:00)
PROC: 0DJD8ZZ Inspection of Lower Intestinal Tract, Via Natural or Artificial Opening Endoscopic (ICD-10-PCS; 2016-11-26)
DX: K26.0 Acute duodenal ulcer with hemorrhage (principal); E43 Unspecified severe protein-calorie malnutrition; C78.5 Secondary malignant neoplasm of large intestine and rectum; C78.7 Secondary malignant neoplasm of liver and intrahepatic bile duct; K22.11 Ulcer of esophagus with bleeding; I95.9 Hypotension, unspecified; C79.51 Secondary malignant neoplasm of bone; R13.10 Dysphagia, unspecified; D62 Acute posthemorrhagic anemia; K29.01 Acute gastritis with bleeding; K62.5 Hemorrhage of anus and rectum; I25.2 Old myocardial infarction; I25.10 Atherosclerotic heart disease of native coronary artery without angina pectoris; E86.1 Hypovolemia; E78.5 Hyperlipidemia, unspecified; E86.0 Dehydration; D50.0 Iron deficiency anemia secondary to blood loss (chronic); D64.9 Anemia, unspecified; R13.19 Other dysphagia; Z95.5 Presence of coronary angioplasty implant and graft; Z93.1 Gastrostomy status
CPT/HCPCS: 36415; 36430; 71010; 78278; 80048; 80053; 82962; 83690; 83735; 84100; 84484; 85014; 85018; 85025; 85610; 85730; 86850; 86900; 86901; 86920; 87081; 93005; 96372; 96374; 96375; 96376; 97163; A9560; C9113; J0696; J1815; J2270; J2354; J2405; J3010; J3480; J7030; J7040; J7050; P9016; P9059